=== PATIENT | female | born 1985 | race Caucasian/White ===

== ENCOUNTER 2017-08-25 19:33 | Observation (INO) | payer MEDICAID ==
[~2017-08-25 19:33] MED LIST: TYLETAB34 PO
[2017-08-25 19:34] VITALS: BP 137/89; PULSE 77; RESP 16; TEMP 97.9; O2SAT 100
[2017-08-25] MEDS ORDERED: SODIUM CHLOR 0.9% 1000 ML INJ 1,000 ML IV SCH (19:58)
[2017-08-25] MEDS ORDERED: SODIUM CHLORIDE 0.9% FLUSH 10 ML FLUSH IV FLUSH PRN (20:00)
--- NOTE | 2017-08-25 20:04 | PD ---
HPI Chief Complaint: Abdominal Pain Time Seen by Provider: 19:55 Travel History International Travel<30 days: No Contact w/Intl Traveler<30days: No Traveled to known affect area: No History of Present Illness HPI 31-year-old female here complaining of abdominal pain. The patient reports having lower abdominal/suprapubic pain for 2 weeks, described as sharp/pressure , moderate to severe. She reports history of cervical cancer for which she was receiving cryotherapy and was referred to oncology, however she has not yet been able to make an appointment with them. It is her last menstrual period was 2 weeks ago. She is denying vaginal bleeding or discharge. No urinary symptoms. No history of intra-abdominal surgeries. No vomiting or diarrhea. No fevers or chills. The patient is sexually active with one partner and states she is in a monogamous relationship with her fianc. PFSH Past Medical History Autoimmune Disease: No Blood Disorders: No Anxiety: Yes Depression: No Cancer: No Cardiovascular Problems: No Diminished Hearing: No Endocrine: No Genitourinary: Yes (HPV) Immune Disorder: No Musculoskeletal: No Neurologic: Yes (BELLS PALSY WITH PREGNANCIES) Psychiatric: Yes (ANGER ISSUES) Reproductive: No Respiratory: No Immunizations Current: No ?: Unknown : 3 Para: 2 Miscarriage: 1 : 0 Dilation and Curettage (D&C): Yes Past Surgical History Abdominal Surgery: No Cardiac Surgery: No Ear Surgery: No Eye Surgery: No Genitourinary Surgery: No Gynecologic Surgery: Yes (D&C 2002) Oral Surgery: No Pacemaker: No Thoracic Surgery: No Other Surgery: Yes (D&C 2002) Social History Alcohol Use: Yes (SOCIALLY) Tobacco Use: Yes (08/01) Substance Use: No Allergies-Medications (Allergen,Severity, Reaction): Coded Allergies: butorphanol (Unverified Adverse Reaction, Severe, 08/07/17) ketorolac (Unverified Adverse Reaction, Severe, SOB, 08/07/17) ibuprofen (Unverified Adverse Reaction, Mild, UPSET STOMACH, 08/07/17) Reported Meds & Prescriptions Reported Meds & Active Scripts Active Tylenol-Codeine #3 (Acetaminophen-Codeine) 300-30 mg Tab 1 Tab PO Q4H PRN Reported Flagyl (Metronidazole) Unknown Strength Cap Unknown Dose PO BID Hydrocodone-Acetaminophen 7.5 Mg-325 Mg Tab 1 Tab PO Q4H PRN Gabapentin 800 Mg Tab 800 Mg PO TID Physical Exam Narrative GENERAL: Well-developed, well-nourished, tearful, no apparent distress. SKIN: Focused skin assessment warm/dry. No rash. HEAD: Atraumatic. Normocephalic. EYES: Pupils equal and round. No scleral icterus. No injection or drainage. ENT: Mucous membranes pink and moist. NECK: Trachea midline. No JVD. CARDIOVASCULAR: Regular rate and rhythm. RESPIRATORY: No accessory muscle use. Clear to auscultation. Breath sounds equal bilaterally. GASTROINTESTINAL: Abdomen soft, nondistended. Mild suprapubic tenderness without peritoneal signs. No hernias. Normal bowel sounds. [employer]HW[employer] TE[employer]ER: Exam performed in the presence of female nurse. External genitalia with general warts. Scant amount of whitish vaginal discharge in vaginal vault. Cervix is erythematous. No CMT. No adnexal masses or tenderness. MUSCULOSKELETAL: No obvious deformities. No clubbing. No cyanosis. No edema. NEUROLOGICAL: Awake and alert. No obvious cranial nerve deficits. Motor grossly within normal limits. Normal speech. PSYCHIATRIC: Appropriate mood and affect; insight and judgment normal. Data Data Last Documented VS Vital Signs Date Time Temp Pulse Resp B/P (MAP) Pulse Ox O2 Delivery O2 Flow Rate FiO2 08/25/17 19:34 97.9 77 16 137/89 (105) 100 Room Air Orders Orders Beta Hcg (Quant/Titer) (08/25/17 19:58) Complete Blood Count With Diff (08/25/17 19:58) Comprehensive Metabolic Panel (08/25/17 19:58) Lipase (08/25/17 19:58) Prothrombin Time / Inr (Pt) (08/25/17 19:58) Act Partial Throm Time (Ptt) (08/25/17 19:58) Urinalysis - C+S If Indicated (08/25/17 19:58) Ct Abd/Pel W Iv Contrast(Rout) (08/25/17 19:58) Iv Access Insert/Monitor (08/25/17 19:58) Ecg Monitoring (08/25/17 19:58) Oximetry (08/25/17 19:58) Sodium Chlor 0.9% 1000 Ml Inj (Ns 1000 M (08/25/17 19:58) Sodium Chloride 0.9% Flush (Ns Flush) (08/25/17 20:00) Gc And Chlamydia Pcr (08/25/17 19:58) Wet Prep Profile (08/25/17 19:58) Morphine Inj (Morphine Inj) (08/25/17 20:15) Iohexol 350 Inj (Omnipaque 350 Inj) (08/25/17 21:45) Tylenol (Acetaminophen) (08/25/17 21:48) Drug Screen, Random Urine (08/25/17 21:48) Hydromorphone Pf Inj (Dilaudid Pf Inj) (08/25/17 22:00) Sodium Chlor 0.9% 1000 Ml Inj (Ns 1000 M (08/25/17 22:00) Hydromorphone Pf Inj (Dilaudid Pf Inj) (08/25/17 22:45) Us Pelvis Comp W Dop Transvag (08/25/17 22:08) Potassium Chloride (Kcl) (08/25/17 23:30) Admit Order (Ed Use Only) (08/25/17 23:58) Labs Laboratory Tests Test 08/25/17 20:15 08/25/17 22:00 08/25/17 22:30 White Blood Count 8.9 TH/MM3 Red Blood Count 4.12 MIL/MM3 Hemoglobin 12.9 GM/DL Hematocrit 37.5 % Mean Corpuscular Volume 91.1 FL Mean Corpuscular Hemoglobin 31.4 PG Mean Corpuscular Hemoglobin Concent 34.4 % Red Cell Distribution Width 13.0 % Platelet Count 176 TH/MM3 Mean Platelet Volume 8.2 FL Neutrophils (%) (Auto) 44.0 % Lymphocytes (%) (Auto) 44.6 % Monocytes (%) (Auto) 7.3 % Eosinophils (%) (Auto) 3.7 % Basophils (%) (Auto) 0.4 % Neutrophils # (Auto) 3.9 TH/MM3 Lymphocytes # (Auto) 4.0 TH/MM3 Monocytes # (Auto) 0.7 TH/MM3 Eosinophils # (Auto) 0.3 TH/MM3 Basophils # (Auto) 0.0 TH/MM3 CBC Comment AUTO DIFF Differential Comment AUTO DIFF CONFIRMED Platelet Estimate NORMAL Platelet Morphology Comment NORMAL Prothrombin Time 11.5 SEC Prothromb Time International Ratio 1.1 RATIO Activated Partial Thromboplast Time 26.3 SEC Blood Urea Nitrogen 5 MG/DL Creatinine 0.56 MG/DL Random Glucose 114 MG/DL Total Protein 6.6 GM/DL Albumin 3.0 GM/DL Calcium Level 8.1 MG/DL Alkaline Phosphatase 109 U/L Aspartate Amino Transf (AST/SGOT) 102 U/L Alanine Aminotransferase (ALT/SGPT) 601 U/L Total Bilirubin 0.3 MG/DL Sodium Level 140 MEQ/L Potassium Level 3.1 MEQ/L Chloride Level 106 MEQ/L Carbon Dioxide Level 29.7 MEQ/L Anion Gap 4 MEQ/L Estimat Glomerular Filtration Rate 127 ML/MIN Lipase 191 U/L Human Chorionic Gonadotropin, Quant LESS THAN 1 MIU/ML Acetaminophen Level LESS THAN 2.0 MCG/ML Clue Cells (Wet Prep) NONE SEEN Vaginal Trichomonas (Wet Prep) NONE SEEN Vaginal Yeast (Wet Prep) NONE SEEN Urine Color YELLOW Urine Turbidity CLEAR Urine pH 6.5 Urine Specific [place] GREATER THAN 1.050 Urine Protein TRACE mg/dL Urine Glucose (UA) NEG mg/dL Urine Ketones NEG mg/dL Urine Occult Blood NEG Urine Nitrite NEG Urine Bilirubin NEG Urine Urobilinogen LESS THAN 2.0 MG/DL Urine Leukocyte Esterase NEG Urine WBC LESS THAN 1 /hpf Urine Squamous Epithelial Cells <1 /hpf Microscopic Urinalysis Comment CULT NOT INDICATED MDM Medical Decision Making Medical Screen Exam Complete: Yes Emergency Medical Condition: Yes Differential Diagnosis Appendicitis, UTI, cystitis, PID, TOA, ovarian cysts, BV, Trichomonas, colitis, diverticulitis Narrative Course Vital signs are within normal limits. CBC is unremarkable. CMP is remarkable for potassium 3.1, AST 102, ALT 601. Lipase is 191. Beta hCG is negative. Patient tells me that she abuses IV drugs, however has never been diagnosed with hepatitis. Wet prep: Negative for yeast, negative for clue cells, negative for Trichomonas UA is not suggestive of UTI. CT abdomen pelvis: CONCLUSION: 1. Bilobed left adnexal cyst measuring up to 3.9 x 2.4 cm. Exam degraded by some motion artifact. No other acute abnormalities. Patient continues to have abdominal pain despite receiving 4 mg of IV morphine. She will be given 1 mg of IV Dilaudid and a pelvic ultrasound will be ordered to evaluate for ovarian torsion. Pelvic ultrasound: RIGHT OVARY: Ovary contains no mass or significant cystic lesion. Blood flow is seen at the right ovary. LEFT OVARY: There is a 3.7 x 2.5 x 2.5 cm bilobed cystic area seen at the left adnexa. Blood flow is seen at the left ovary. MISCELLANEOUS: No free fluid. CONCLUSION: 3.7 cm bilobed cystic area in the left adnexa/ovary. This is nonspecific. Typically, cystic lesions with this appearance are followed with an ultrasound in 6-12 weeks. Tylenol level is negative. Patient was made aware of all findings. She is continuing to complain of abdominal pain. Potassium replaced orally. Given intractable abdominal pain with transaminitis, patient be admitted for overnight observation. Case discussed with hospitalist Dr. Wray who will admit the patient to her service. Diagnosis Primary Impression: Intractable abdominal pain Additional Impressions: Transaminitis Left ovarian cyst IV drug abuse Admitting Information Admitting Physician Requests: Rayray Muir MD Aug 25, 2017 20:04
[2017-08-25] MEDS ORDERED: MORPHINE SULFATE 2 MG/ML INJ IV PUSH ONE (20:15)
[2017-08-25] MEDS ORDERED: FLAG375C PO (20:26)
[2017-08-25] MEDS ORDERED: HYDR-3580 PO (20:26)
[2017-08-25] MEDS ORDERED: GABA800T PO (20:26)
[2017-08-25 20:47] LABS: INTERNATIONAL NORMALIZED RATIO 1.1 RATIO; PROTHROMBIN TIME - PATIENT 11.5 SEC (9.8-11.6)
[2017-08-25 20:48] LABS: AUTOMATED NEUTROPHIL # 3.9 TH/MM3 (1.8-7.7); BASOPHIL % 0.4 % (0.0-2.0); EOSINOPHIL # 0.3 TH/MM3 (0-0.4); EOSINOPHIL % 3.7 % (0.0-4.0); HEMATOCRIT 37.5 % (35.0-46.0); HEMOGLOBIN 12.9 GM/DL (11.6-15.3); LYMPH % 44.6 % (9.0-44.0); MEAN CELL VOLUME 91.1 FL (80.0-100.0); MEAN CORPUSCULAR HEMOGLOBIN 31.4 PG (27.0-34.0); MEAN CORPUSCULAR HGB CONC 34.4 % (32.0-36.0); MEAN PLATELET VOLUME 8.2 FL (7.0-11.0); MONO % 7.3 % (0.0-8.0); MONOCYTE # 0.7 TH/MM3 (0-0.9); PLATELET COUNT 176 TH/MM3 (150-450); RED BLOOD COUNT 4.12 MIL/MM3 (4.00-5.30); WHITE BLOOD COUNT 8.9 TH/MM3 (4.0-11.0)
[2017-08-25 21:11] LABS: AST (GOT) 102 U/L (15-37); BICARBONATE 29.7 MEQ/L (21.0-32.0); BLOOD UREA NITROGEN 5 MG/DL (7-18); CALCIUM 8.1 MG/DL (8.5-10.1); CHLORIDE 106 MEQ/L (98-107); CREATININE 0.56 MG/DL (0.50-1.00); GLOMERULAR FILTRATION RATE 127 ML/MIN (>89); GLUCOSE,RANDOM 114 MG/DL (74-106); LIPASE 191 U/L (73-393); SODIUM (NA) 140 MEQ/L (136-145)
[2017-08-25 21:13] LABS: ALT (GPT) 601 U/L (10-53)
[2017-08-25 21:16] LABS: ALKALINE PHOSPHATASE 109 U/L (45-117); TOTAL BILIRUBIN ADULT 0.3 MG/DL (0.2-1.0); TOTAL PROTEIN 6.6 GM/DL (6.4-8.2)
[2017-08-25] MEDS ORDERED: IOHEXOL 350 MG/ML 10 ML VIAL (for RAD DIAG) IVCONTRAST ONE (21:45)
[2017-08-25] MEDS ORDERED: SODIUM CHLOR 0.9% 1000 ML INJ 1,000 ML IV ONE (22:00)
[2017-08-25] MEDS ORDERED: HYDROmorphone HCL PF 2 MG/ML VIAL IV PUSH ONE ×2 (22:00→22:45)
--- NOTE | 2017-08-25 22:04 | RADRPT ---
EXAM DATE/TIME: 08/25/2017 21:39 [facility] COMPARISON: No previous studies available for comparison. INDICATIONS : Abdominal pain. Pubic pressure. IV CONTRAST: 100 cc Omnipaque 350 (iohexol) IV ORAL CONTRAST: No oral contrast ingested. RADIATION DOSE: 7.77 CTDIvol (mGy) MEDICAL HISTORY : Mckoy's palsy. SURGICAL HISTORY : None. ENCOUNTER: Initial ACUITY: 1 day PAIN SCALE: 5/10 LOCATION: abdomen TECHNIQUE: Volumetric scanning of the abdomen and pelvis was performed. Using automated exposure control and ad justment of the mA and/or kV according to patient size, radiation dose was kept as low as reasonably achievable to obtain optimal diagnostic quality images. DICOM format image data is available electro nically for review and comparison. FINDINGS: Lung bases are clear. No acute findings in the liver, spleen, adrenals, kidneys and pancreas. No calc ified gallstones. No free fluid. No bowel obstruction. No acute bony abnormality. There is a bilobed 3.9 x 2.4 cm left adnexal cyst. CONCLUSION: 1. Bilobed left adnexal cyst measuring up to 3.9 x 2.4 cm. Exam degraded by some motion artifact. No other acute abnormalities. Sharad Ferrari MD on August 25, 2017 at 21:57 Board Certified Radiologist. This report was verified electronically.
[2017-08-25 22:59] LABS: BILIRUBIN, URINE NEG (NEG); BLOOD, URINE NEG (NEG); GLUCOSE,URINE NEG (NEG); KETONE, URINE NEG (NEG); NITRITE,URINE NEG (NEG); PH, URINE 6.5 (5.0-8.5); SQUAMOUS EPITHELIAL CELL URINE <1 /hpf (0-5); URINE COLOR YELLOW (YELLW/STRAW); URINE LEUKOCYTE ESTERASE NEG (NEG)
--- NOTE | 2017-08-25 23:23 | RADRPT ---
EXAM DATE/TIME: 08/25/2017 22:10 [facility] COMPARISON: No previous studies available for comparison. INDICATIONS : Pelvic pain. MEDICAL HISTORY : [place] palsy. Abdominal pain. Anxiety. Fibromyalgia. SURGICAL HISTORY : Dilation and curettage. Right wrist repaired. ENCOUNTER: Initial ACUITY: 1 day PAIN SCORE: 10/10 LOCATION: Bilateral pelvis MEASUREMENTS: UTERUS: 8.4 x 5.4 x 3.9 cm ENDOMETRIAL STRIPE: 9 mm RIGHT OVARY: 3.8 x 1.6 x 1.7 cm LEFT OVARY: 4.0 x 2.5 x 2.3 cm FINDINGS: The technologist reports the exam being limited secondary to the patient being uncooperative and movi ng during the examination. UTERUS: The myometrium has homogeneous echotexture without mass.No IUP is seen. Nabothian cysts are seen at t he cervix. RIGHT OVARY: Ovary contains no mass or significant cystic lesion. Blood flow is seen at the right ovary. LEFT OVARY: There is a 3.7 x 2.5 x 2.5 cm bilobed cystic area seen at the left adnexa. Blood flow is seen at the left ovary. MISCELLANEOUS: No free fluid. CONCLUSION: 3.7 cm bilobed cystic area in the left adnexa/ovary. This is nonspecific. Typically, cystic lesions w ith this appearance are followed with an ultrasound in 6-12 weeks. Kirk Bojorquez MD on August 25, 2017 at 23:19 Board Certified Radiologist. This report was verified electronically.
[2017-08-25] MEDS ORDERED: POTASSIUM CHLORIDE 10 MEQ CAP PO ONE (23:30)
[2017-08-26] MEDS ORDERED: BISACODYL 10 MG SUPP RECTAL PRN (00:15)
[2017-08-26] MEDS ORDERED: LACTULOSE SYRUP 20 GM/30 ML CUP PO PRN (00:15)
[2017-08-26] MEDS ORDERED: ONDANSETRON HCL 4 MG/2 ML VIAL IVP PRN (00:15)
[2017-08-26] MEDS ORDERED: SENNOSIDES 8.6 MG TAB PO PRN (00:15)
[2017-08-26] MEDS ORDERED: MAGNESIUM HYDROXIDE SUSP 30 ML CUP PO PRN (00:15)
[2017-08-26] MEDS ORDERED: SODIUM CHLORIDE 0.9% FLUSH 10 ML FLUSH IV FLUSH PRN (00:15)
[2017-08-26] MEDS ORDERED: ACETAMINOPHEN 325 MG TAB PO PRN (00:15)
--- NOTE | 2017-08-26 01:11 | HHI.HP ---
HPI Service [facility] Primary Care Physician No Primary Care Physician Admission Diagnosis intractable abdominal pain, ovarian cyst, hypokalemia Diagnoses: (1) Intractable abdominal pain Diagnosis: Principal (2) Elevated LFTs Diagnosis: Principal (3) IVDU (intravenous drug user) Diagnosis: Principal (4) Genital warts Diagnosis: Principal Travel History International Travel<30 Days: No Contact w/Intl Traveler <30 Da: No Traveled to Known Affected Are: No History of Present Illness This is a 31-year-old female with a PMH of Anxiety, HPV, Genital Warts, Tobacco Abuse and IVDU who presented to the ER w/ complaints of abdominal pain. States pain has been ongoing for approx 2 wks. Located in RLQ/groin. States pain is constant, severe, 10/10, non-radiating. No associated nausea, vomiting or diarrhea. States she's been "self-medicating w/ Dilaudid" IV after taking Lortab w/ no improvement. On arrival, BP 137/89, HR 77, O2 sat 100% on RA. Afebrile. CBC unremarkable. Chemistry essentially unremarkable except for elevated LFTs. AST 102, ALT 601, previously normal on 02/22/11. Believes she was tested for Hepatitis while incarcerated. Transvaginal US 3.7 cm bilobed cystic area and left adnexa/ovary, recommendation for follow-up in 6-[address] Abd/Pelvis w/ similar results. S/p Dilaudid x2 and Morphine IV in ER w/ no improvement. Review of Systems Except as stated in HPI: all other systems reviewed are Neg ROS: 14 point review of systems otherwise negative. Past Family Social History Past Medical History PMH: Anxiety, HPV, Genital Warts, Tobacco Abuse and IVDU Past Surgical History PAST SURGICAL HISTORY: D&C Allergies: Coded Allergies: butorphanol (Unverified Adverse Reaction, Severe, 08/07/17) ketorolac (Unverified Adverse Reaction, Severe, SOB, 08/07/17) ibuprofen (Unverified Adverse Reaction, Mild, UPSET STOMACH, 08/07/17) Family History PAST FAMILY HISTORY: Reviewed. No h/o DM or CAD Social History PAST SOCIAL HISTORY: Occasional alcohol. Smokes 1/2ppd. +IVDU w/ Dilaudid, Lortab. Physical Exam Vital Signs Vital Signs Date Time Temp Pulse Resp B/P (MAP) Pulse Ox O2 Delivery O2 Flow Rate FiO2 08/26/17 00:33 08/25/17 19:34 97.9 77 16 137/89 (105) 100 Room Air Physical Exam PE: GENERAL: Middle-aged white female in no acute distress, anxious/fidgety. HEENT: PERRLA, EOMI. No scleral icterus or conjunctival pallor. No lid lag or facial droop. CARDIOVASCULAR: Regular rate and rhythm. No obvious murmurs to auscultation. No chest tenderness to palpation. RESPIRATORY: No obvious rhonchi or wheezing. Clear to auscultation. Breath sounds equal bilaterally. GASTROINTESTINAL: Abdomen soft, +RLQ/suprapubic tenderness to palpation, nondistended. BS normal. MUSCULOSKELETAL: Extremities without clubbing, cyanosis, or edema. No obvious deformities. NEUROLOGICAL: Awake, alert and oriented x4. No focal neurologic deficits. Moving both upper and lower extremities spontaneously. Laboratory Laboratory Tests Test 08/25/17 20:15 08/25/17 22:00 08/25/17 22:30 White Blood Count 8.9 Red Blood Count 4.12 Hemoglobin 12.9 Hematocrit 37.5 Mean Corpuscular Volume 91.1 Mean Corpuscular Hemoglobin 31.4 Mean Corpuscular Hemoglobin Concent 34.4 Red Cell Distribution Width 13.0 Platelet Count 176 Mean Platelet Volume 8.2 Neutrophils (%) (Auto) 44.0 Lymphocytes (%) (Auto) 44.6 Monocytes (%) (Auto) 7.3 Eosinophils (%) (Auto) 3.7 Basophils (%) (Auto) 0.4 Neutrophils # (Auto) 3.9 Lymphocytes # (Auto) 4.0 Monocytes # (Auto) 0.7 Eosinophils # (Auto) 0.3 Basophils # (Auto) 0.0 CBC Comment AUTO DIFF Differential Comment AUTO DIFF CONFIRMED Platelet Estimate NORMAL Platelet Morphology Comment NORMAL Prothrombin Time 11.5 Prothromb Time International Ratio 1.1 Activated Partial Thromboplast Time 26.3 Blood Urea Nitrogen 5 Creatinine 0.56 Random Glucose 114 Total Protein 6.6 Albumin 3.0 Calcium Level 8.1 Alkaline Phosphatase 109 Aspartate Amino Transf (AST/SGOT) 102 Alanine Aminotransferase (ALT/SGPT) 601 Total Bilirubin 0.3 Sodium Level 140 Potassium Level 3.1 Chloride Level 106 Carbon Dioxide Level 29.7 Anion Gap 4 Estimat Glomerular Filtration Rate 127 Lipase 191 Human Chorionic Gonadotropin, Quant LESS THAN 1 Acetaminophen Level LESS THAN 2.0 Clue Cells (Wet Prep) NONE SEEN Vaginal Trichomonas (Wet Prep) NONE SEEN Vaginal Yeast (Wet Prep) NONE SEEN Urine Color YELLOW Urine Turbidity CLEAR Urine pH 6.5 Urine Specific [place] GREATER THAN 1.050 Urine Protein TRACE Urine Glucose (UA) NEG Urine Ketones NEG Urine Occult Blood NEG Urine Nitrite NEG Urine Bilirubin NEG Urine Urobilinogen LESS THAN 2.0 Urine Leukocyte Esterase NEG Urine WBC LESS THAN 1 Urine Squamous Epithelial Cells <1 Microscopic Urinalysis Comment CULT NOT INDICATED Result Diagram: 08/25/17201408/25/172014 Bobrini VTE Risk Assessment Caprini VTE Risk Assessment: No/Low Risk (score <= 1) Caprini Risk Assessment Model Point Value = 1 Point Value = 2 Point Value = 3 Point Value = 5 Age 41-60 Minor surgery BMI > 25 kg/m2 Swollen legs Varicose veins or History of unexplained or recurrent spontaneous Oral contraceptives or hormone replacement Sepsis (< 1 month) Serious lung disease, including pneumonia (< 1 month) Abnormal pulmonary function Acute myocardial infarction Congestive heart failure (< 1 month) History of inflammatory bowel disease Medical patient at bed rest Age 61-74 Arthroscopic surgery Major open surgery (> 45 min) Laparoscopic surgery (> 45 min) Malignancy Confined to bed (> 72 hours) Immobilizing plaster cast Central venous access Age >= 75 History of VTE Family history of VTE Factor V Leiden Prothrombin [id number] Lupus anticoagulant Anticardiolipin antibodies Elevated serum homocysteine Heparin-induced thrombocytopenia Other congenital or acquired thrombophilia Stroke (< 1 month) Elective arthroplasty Hip, pelvis, or leg fracture Acute spinal cord injury (< 1 month) Prophylaxis Regimen Total Risk Factor Score Risk Level Prophylaxis Regimen 0-1 Low Early ambulation 2 Moderate Order ONE of the following: *Sequential Compression Device (SCD) *Heparin 5000 units SQ BID 3-4 Higher Order ONE of the following medications: *Heparin 5000 units SQ TID *Enoxaparin/Lovenox 40 mg SQ daily (WT < 150 kg, CrCl > 30 mL/min) *Enoxaparin/Lovenox 30 mg SQ daily (WT < 150 kg, CrCl > 10-29 mL/min) *Enoxaparin/Lovenox 30 mg SQ BID (WT < 150 kg, CrCl > 30 mL/min) AND/OR *Sequential Compression Device (SCD) 5 or more Highest Order ONE of the following medications: *Heparin 5000 units SQ TID (Preferred with Epidurals) *Enoxaparin/Lovenox 40 mg SQ daily (WT < 150 kg, CrCl > 30 mL/min) *Enoxaparin/Lovenox 30 mg SQ daily (WT < 150 kg, CrCl > 10-29 mL/min) *Enoxaparin/Lovenox 30 mg SQ BID (WT < 150 kg, CrCl > 30 mL/min) AND *Sequential Compression Device (SCD) Assessment and Plan Problem List: (1) Intractable abdominal pain ICD Code: R10.9 - Unspecified abdominal pain Status: Acute (2) Elevated LFTs ICD Code: R79.89 - Other specified abnormal findings of blood chemistry (3) Genital warts ICD Code: A63.0 - Anogenital (venereal) warts (4) IVDU (intravenous drug user) ICD Code: F19.90 - Other psychoactive substance use, unspecified, uncomplicated Assessment and Plan A/P: 1. Intractable Abd Pain: c/o abdominal pain x2 wks, Transvaginal US w/ 3.7cm left adnexal cyst, CT Abd/Pelvis w/ similar findings, images reviewed by me. No obvious pathology to explain complaints. S/p Dilaudid x2 and Morphine IV in ER w/ minimal improvement. Analgesics/antiemetics as needed. 2. Elevated LFTs: admits to IVDU, denies h/o Hepatitis. LFTs elevated in comparison to previous labs, check Hepatitis Panel. Tylenol level normal. 3. Genital Warts: No treatment while incarcerated x5 yrs, recently started on Cryotherapy w/ no significant improvement, referred to Dr. Gomez, pt pending appt. Instructed her to follow up as scheduled. s/p vaginal exam in ER, Chlam/ GN pending. 4. IVDU: admits to IVDU w/ Dilaudid. Ativan prn if needed. 5. DVT Prophylaxis: SCD/Teds. 6. Social work for d/c planning as needed. 7. Case discussed w/ ER physician at length, labs/records/imaging reviewed by me. Lizzy Wray MD Aug 26, 2017 01:11
[2017-08-26 01:13] VITALS: BP 118/76; PULSE 73; RESP 17; TEMP 97.9; O2SAT 93
[2017-08-26] MEDS: MORPHINE SULFATE 2 MG/ML INJ IV PUSH PRN ×4 (03:20→21:18)
[2017-08-26 04:06] VITALS: BP 126/63; PULSE 118; RESP 18; TEMP 98.5; O2SAT 97
[2017-08-26 08:30] LABS: AUTOMATED NEUTROPHIL # 2.8 TH/MM3 (1.8-7.7); BASOPHIL # 0.1 TH/MM3 (0-0.2); BASOPHIL % 0.8 % (0.0-2.0); EOSINOPHIL # 0.4 TH/MM3 (0-0.4); EOSINOPHIL % 4.9 % (0.0-4.0); HEMATOCRIT 34.9 % (35.0-46.0); HEMOGLOBIN 11.9 GM/DL (11.6-15.3); LYMPH % 48.7 % (9.0-44.0); LYMPHOCYTE # 3.8 TH/MM3 (1.0-4.8); MEAN CELL VOLUME 90.9 FL (80.0-100.0); MEAN CORPUSCULAR HGB CONC 34.1 % (32.0-36.0); MEAN PLATELET VOLUME 7.8 FL (7.0-11.0); MONO % 9.6 % (0.0-8.0); MONOCYTE # 0.8 TH/MM3 (0-0.9); PLATELET COUNT 171 TH/MM3 (150-450); RED BLOOD COUNT 3.84 MIL/MM3 (4.00-5.30); RED CELL DISTRIBUTION WIDTH 13.1 % (11.6-17.2); WHITE BLOOD COUNT 7.8 TH/MM3 (4.0-11.0)
[2017-08-26 08:36] VITALS: BP 100/53; PULSE 88; RESP 20; TEMP 97.9; O2SAT 96
[2017-08-26 08:54] LABS: ALBUMIN 2.4 GM/DL (3.4-5.0); AST (GOT) 67 U/L (15-37); BICARBONATE 27.2 MEQ/L (21.0-32.0); BLOOD UREA NITROGEN 4 MG/DL (7-18); CALCIUM 7.9 MG/DL (8.5-10.1); CHLORIDE 108 MEQ/L (98-107); CREATININE 0.46 MG/DL (0.50-1.00); GLOMERULAR FILTRATION RATE 159 ML/MIN (>89); GLUCOSE,RANDOM 121 MG/DL (74-106); SODIUM (NA) 140 MEQ/L (136-145)
[2017-08-26 08:55] LABS: ALT (GPT) 428 U/L (10-53)
[2017-08-26 08:59] LABS: ALKALINE PHOSPHATASE 93 U/L (45-117); TOTAL BILIRUBIN ADULT 0.3 MG/DL (0.2-1.0); TOTAL PROTEIN 5.5 GM/DL (6.4-8.2)
[2017-08-26] MEDS: SODIUM CHLORIDE 0.9% FLUSH 10 ML FLUSH IV FLUSH SCH ×2 (09:00→21:16)
--- NOTE | 2017-08-26 09:54 | HHI.PR ---
Subjective Remarks Follow-up abdominal pain. Continues to have right lower quadrant pain relieved with current medications. Denies any other symptoms. Discussed with nursing staff Objective Vitals Vital Signs Date Time Temp Pulse Resp B/P (MAP) Pulse Ox O2 Delivery O2 Flow Rate FiO2 08/26/17 08:36 97.9 88 20 100/53 (69) 96 08/26/17 04:06 98.5 118 18 126/63 (84) 97 08/26/17 01:13 97.9 73 17 118/76 (90) 93 08/26/17 00:33 08/25/17 19:34 97.9 77 16 137/89 (105) 100 Room Air I/O 08/25/17 08/25/17 08/25/17 08/26/17 08/26/17 08/26/17 07:00 15:00 23:00 07:00 15:00 23:00 Intake Total 1000 ml Balance 1000 ml Intake IV Total 1000 ml # Voids 1 Result Diagram: 08/26/17 0755 08/26/17 0755 Imaging Last Impressions Abdomen/Pelvis/Transvag US 08/25/172207 Signed Impressions: Service Date/Time: Friday, August 25, 2017 22:10 - CONCLUSION: 3.7 cm bilobed cystic area in the left adnexa/ovary. This is nonspecific. Typically, cystic lesions with this appearance are followed with an ultrasound in 6-12 weeks. Kirk Bojorquez MD Abdomen/Pelvis CT 08/25/171957 Signed Impressions: Service Date/Time: Friday, August 25, 2017 21:39 - CONCLUSION: 1. Bilobed left adnexal cyst measuring up to 3.9 x 2.4 cm. Exam degraded by some motion artifact. No other acute abnormalities. Sharad Ferrari MD Objective Remarks GENERAL: Middle-aged white female in distress due to pain HEENT: PERRLA, EOMI. No scleral icterus or conjunctival pallor. No lid lag or facial droop. CARDIOVASCULAR: Regular rate and rhythm. No obvious murmurs to auscultation. No chest tenderness to palpation. RESPIRATORY: No obvious rhonchi or wheezing. Clear to auscultation. Breath sounds equal bilaterally. GASTROINTESTINAL: Abdomen soft, +RLQ/suprapubic tenderness to palpation, nondistended. BS normal. MUSCULOSKELETAL: Extremities without clubbing, cyanosis, or edema. No obvious deformities. NEUROLOGICAL: Awake, alert and oriented x4. No focal neurologic deficits. Moving both upper and lower extremities spontaneously. Procedures none A/P Problem List: (1) Intractable abdominal pain ICD Code: R10.9 - Unspecified abdominal pain Status: Acute (2) Elevated LFTs ICD Code: R79.89 - Other specified abnormal findings of blood chemistry (3) Genital warts ICD Code: A63.0 - Anogenital (venereal) warts (4) IVDU (intravenous drug user) ICD Code: F19.90 - Other psychoactive substance use, unspecified, uncomplicated Assessment and Plan 1. Intractable Abd Pain, etiology not clear. Transvaginal US w/ 3.7cm left adnexal cyst, CT Abd/Pelvis w/ similar findings, images reviewed by me. No obvious pathology to explain complaints. S/p Dilaudid x2 and Morphine IV in ER w/ minimal improvement. Analgesics/antiemetics as needed counseled regarding narcotics. Consult GI 2. Elevated LFTs: admits to IVDU, denies h/o Hepatitis. LFTs elevated in comparison to previous labs, check Hepatitis Panel. Tylenol level normal. Per GI 3. Genital Warts: No treatment while incarcerated x5 yrs, recently started on Cryotherapy w/ no significant improvement, referred to Dr. Gomez, pt pending appt. Instructed her to follow up as scheduled. s/p vaginal exam in ER, Chlam/ GN negative 4. IVDU: admits to IVDU w/ Dilaudid. Counseled 5. Her glycemia. Obtain A1c DVT Prophylaxis: SCD/Teds. Discharge Planning Not ready for discharge with intractable abdominal pain Seth Bull MD Aug 26, 2017 09:54
[2017-08-26] MEDS: DOCUSATE SODIUM 50 MG/SENNA 8.6 MG TAB PO SCH ×2 (10:06→21:00)
--- NOTE | 2017-08-26 13:33 | PD.CONS ---
HPI History of Present Illness This is a 31 year old female who came into the emergency room for evaluation on 08/26/17 with complaints of abdominal pain. She states pain is present aggressive we getting worse in the right lower quadrant, onset approximately 2 weeks. She does note some nausea but no vomiting, no diarrhea ,no constipation , no dysphagia. When entering room patient had her eyes closed relaxed and comfortable, but immediately when awake and started complaining of right lower quadrant pain again. Currently abdomen is soft, patient does note some mild tenderness in the right lower quadrant, denies any epigastric pain. Patient thinks that she has been possibly tested for hepatitis while incarcerated according to the record but has no records. Patient denies any alcohol abuse, states she smokes a half a pack a day since the age of 14, but is currently adding IV and by mouth drug use or drugs of choice are dull lauded and hydrocodone. Recent usage in the past [address] scan shows left adnexal cyst, otherwise unremarkable. Labs include elevated LFTs currently trending down some 67 ALT , 428 AST, Librium and normal at 0.3, hemoglobin 11.9 with no obvious bleeding. Patient denies any rectal bleeding, no known EGD or colonoscopy in the past. (Amy Lux) PFSH Past Medical History Per the record PMH: Anxiety, HPV, Genital Warts, Tobacco Abuse and IVDU, drug of choice hydrocodone by mouth and Dilaudid IV Past Surgical History PAST SURGICAL HISTORY: D&C (Amy Lux) Coded Allergies: butorphanol (Unverified Adverse Reaction, Severe, 08/07/17) ketorolac (Unverified Adverse Reaction, Severe, SOB, 08/07/17) ibuprofen (Unverified Adverse Reaction, Mild, UPSET STOMACH, 08/07/17) Family History PAST FAMILY HISTORY: Reviewed. No h/o DM or CAD Social History PAST SOCIAL HISTORY: Occasional alcohol. Smokes 1/2ppd. +IVDU w/ Dilaudid, Lortab. (Amy Lux) Review of Systems Gastrointestinal: COMPLAINS OF: Abdominal pain (right lower quadrant), Nausea ( Amy Lux) GI Exam Vitals I&O Vital Signs Date Time Temp Pulse Resp B/P (MAP) Pulse Ox O2 Delivery O2 Flow Rate FiO2 1/27/18 08:36 97.9 88 20 100/53 (69) 96 08/26/17 04:06 98.5 118 18 126/63 (84) 97 08/26/17 01:13 97.9 73 17 118/76 (90) 93 08/26/17 00:33 08/25/17 19:34 97.9 77 16 137/89 (105) 100 Room Air I/O 08/25/17 08/25/17 08/25/17 08/26/17 08/26/17 08/26/17 07:00 15:00 23:00 07:00 15:00 23:00 Intake Total 1000 ml Balance 1000 ml Intake IV Total 1000 ml # Voids 1 Imaging Last Impressions Abdomen/Pelvis/Transvag US 08/25/[id number] Signed Impressions: Service Date/Time: Friday, August 25, 2017 22:10 - CONCLUSION: 3.7 cm bilobed cystic area in the left adnexa/ovary. This is nonspecific. Typically, cystic lesions with this appearance are followed with an ultrasound in 6-12 weeks. Kirk Bojorquez MD Abdomen/Pelvis CT [id number]/[id number] Signed Impressions: Service Date/Time: Friday, August 25, 2017 21:39 - CONCLUSION: 1. Bilobed left adnexal cyst measuring up to 3.9 x 2.4 cm. Exam degraded by some motion artifact. No other acute abnormalities. Sharad Ferrari MD Laboratory Test 08/25/17 20:15 08/25/17 22:00 08/25/17 22:30 08/26/17 07:55 White Blood Count 8.9 TH/MM3 7.8 TH/MM3 Red Blood Count 4.12 MIL/MM3 3.84 MIL/MM3 Hemoglobin 12.9 GM/DL 11.9 GM/DL Hematocrit 37.5 % 34.9 % Mean Corpuscular Volume 91.1 FL 90.9 FL Mean Corpuscular Hemoglobin 31.4 PG 31.0 PG Mean Corpuscular Hemoglobin Concent 34.4 % 34.1 % Red Cell Distribution Width 13.0 % 13.1 % Platelet Count 176 TH/MM3 171 TH/MM3 Mean Platelet Volume 8.2 FL 7.8 FL Neutrophils (%) (Auto) 44.0 % 36.0 % Lymphocytes (%) (Auto) 44.6 % 48.7 % Monocytes (%) (Auto) 7.3 % 9.6 % Eosinophils (%) (Auto) 3.7 % 4.9 % Basophils (%) (Auto) 0.4 % 0.8 % Neutrophils # (Auto) 3.9 TH/MM3 2.8 TH/MM3 Lymphocytes # (Auto) 4.0 TH/MM3 3.8 TH/MM3 Monocytes # (Auto) 0.7 TH/MM3 0.8 TH/MM3 Eosinophils # (Auto) 0.3 TH/MM3 0.4 TH/MM3 Basophils # (Auto) 0.0 TH/MM3 0.1 TH/MM3 CBC Comment AUTO DIFF AUTO DIFF Differential Comment AUTO DIFF CONFIRMED AUTO DIFF CONFIRMED Platelet Estimate NORMAL Platelet Morphology Comment NORMAL Prothrombin Time 11.5 SEC Prothromb Time International Ratio 1.1 RATIO Activated Partial Thromboplast Time 26.3 SEC Blood Urea Nitrogen 5 MG/DL 4 MG/DL Creatinine 0.56 MG/DL 0.46 MG/DL Random Glucose 114 MG/DL 121 MG/DL Total Protein 6.6 GM/DL 5.5 GM/DL Albumin 3.0 GM/DL 2.4 GM/DL Calcium Level 8.1 MG/DL 7.9 MG/DL Alkaline Phosphatase 109 U/L 93 U/L Aspartate Amino Transf (AST/SGOT) 102 U/L 67 U/L Alanine Aminotransferase (ALT/SGPT) 601 U/L 428 U/L Total Bilirubin 0.3 MG/DL 0.3 MG/DL Sodium Level 140 MEQ/L 140 MEQ/L Potassium Level 3.1 MEQ/L 3.9 MEQ/L Chloride Level 106 MEQ/L 108 MEQ/L Carbon Dioxide Level 29.7 MEQ/L 27.2 MEQ/L Anion Gap 4 MEQ/L 5 MEQ/L Estimat Glomerular Filtration Rate 127 ML/MIN 159 ML/MIN Lipase 191 U/L Human Chorionic Gonadotropin, Quant LESS THAN 1 MIU/ML Acetaminophen Level LESS THAN 2.0 MCG/ML Clue Cells (Wet Prep) NONE SEEN Vaginal Trichomonas (Wet Prep) NONE SEEN Vaginal Yeast (Wet Prep) NONE SEEN Chlamydia trachomatis DNA (PCR) NOT DETECTED Neisseria gonorrhoeae DNA (PCR) NOT DETECTED Urine Color YELLOW Urine Turbidity CLEAR Urine pH 6.5 Urine Specific [place] GREATER THAN 1.050 Urine Protein TRACE mg/dL Urine Glucose (UA) NEG mg/dL Urine Ketones NEG mg/dL Urine Occult Blood NEG Urine Nitrite NEG Urine Bilirubin NEG Urine Urobilinogen LESS THAN 2.0 MG/DL Urine Leukocyte Esterase NEG Urine WBC LESS THAN 1 /hpf Urine Squamous Epithelial Cells <1 /hpf Microscopic Urinalysis Comment CULT NOT INDICATED Urine Opiates Screen POS Urine Barbiturates Screen NEG Urine Amphetamines Screen POS Urine Benzodiazepines Screen NEG Urine Cocaine Screen NEG Urine Cannabinoids Screen NEG Physical Examination HEENT: Pupils round and reactive to light; normocephalic; atraumatic; no jaundice. NECK: Neck is supple CHEST: Chest is only diminished but no rhonchi CARDIAC: Regular rate and rhythm with no murmur gallop or rubs. ABDOMEN: Round, Soft, nondistended, mild right lower quadrant tenderness to light palpation; bowel sounds are present in all four quadrants. EXTREMITIES: No lower extremity edema. SKIN: Normal; no rash; no jaundice. DIRECTOR RELIGIOUS EDUCATION: Awakens to verbal stimuli ,oriented times three., Mild anxiety noted (Amy Lux) Assessment and Plan Assessment: (1) Elevated LFTs ICD Codes: R79.89 - Other specified abnormal findings of blood chemistry (2) Intractable abdominal pain ICD Codes: R10.9 - Unspecified abdominal pain Status: Acute (3) IV drug abuse ICD Codes: F19.10 - Other psychoactive substance abuse, uncomplicated Status: Acute Plan Nausea for the past 2 weeks but no vomiting could be secondary to her right lower quadrant pain and her IV drug use symptoms. Transaminitis Elevated LFTs trending down mildly currently 67/428, negative bilirubin, could be secondary to her drug use, hepatitis nonalcoholic, liver lab workup in progress, liver ultrasound, hepatitis versus fatty liver? Right lower quadrant pain, rule out inflammation versus infection , appendicitis doubt, WBC count normal range 7.8 CT scan on 08/26/17 shows left adnexal cyst, no other acute abnormality seen Plan Low-dose PPI for her nausea, Protonix 20 mg daily Pain management per attending Consider EGD / colonoscopy, TBA Monitor labs/ special attention to hemoglobin any acute bleeding Liver workup labs, hepatitis profile, alpha 1 antitrypsin, mitochondrial total auto labs, smooth muscle total auto labs, ceruloplasmin, AMA, IgG IgA Liver ultrasound Anemia labs, iron, ferritin, TIBC Supportive care This patient was seen by myself and Dr. Melendez, was done on his behalf (Amy Lux) Plan Patient was seen and examined, agree with above-noted, patient is not very interested in any procedure, we will see how she is doing and how her liver function test develop in the next few days, full workup for hepatitis nonalcoholic is in progress (Yovani Melendez MD) Amy Lux Aug 26, 2017 13:33 Yovani Melendez MD Aug 26, 2017 20:18
[2017-08-26] MEDS: PANTOPRAZOLE SOD 20 MG DELAYED RELEASE TAB PO SCH (13:57)
[2017-08-26 17:17] LABS: FERRITIN 169 NG/ML (8-252)
[2017-08-26 17:20] LABS: % SATURATION IRON PROFILE 47.3 % (20-50); IRON (FE) 114 MCG/DL (50-170); TOTAL IRON BINDING CAPACITY 241 MCG/DL (250-450)
--- NOTE | 2017-08-26 18:52 | RADRPT ---
EXAM DATE/TIME: 08/26/2017 18:11 [facility] COMPARISON: No previous studies available for comparison. INDICATIONS : Increased lab values. MEDICAL HISTORY : Abdominal pain. Anxiety. Cervical cancer. Fibromyalgia. Substance use. Alcohol use. SURGICAL HISTORY : Dilation and curettage. Right wrist repaired. ENCOUNTER: Initial ACUITY: 3 days PAIN SCORE: 5/10 LOCATION: Bilateral upper quadrant MEASUREMENTS: LIVER: 18.7 cm length COMMON DUCT: 4 mm RIGHT KIDNEY: 12.2 x 4.6 x 4.4 cm SPLEEN: 10.6 cm length FINDINGS: LIVER: Normal echotexture without focal lesion or ductal dilatation. COMMON DUCT: No intraluminal mass or stone visualized. GALLBLADDER: Contracted gallbladder. No sludge or stones. No pericholecystic fluid. PANCREAS: The visualized portions are within normal limits. RIGHT KIDNEY: No hydronephrosis, stone or mass. SPLEEN: No focal lesion. CONCLUSION: Upper limits of normal size liver. Otherwise normal right upper quadrant ultrasound. Kirk Gillespie MD on August 26, 2017 at 18:48 Board Certified Radiologist. This report was verified electronically.
[2017-08-26 20:32] VITALS: BP 118/56; PULSE 68; RESP 18; TEMP 98.5; O2SAT 98
[2017-08-26] MEDS: DIAZEPAM 10 MG TAB PO PRN (21:19)
[2017-08-27] VITALS: BP 113/62; PULSE 66; RESP 20; TEMP 98.3; O2SAT 99
[2017-08-27] MEDS: MORPHINE SULFATE 2 MG/ML INJ IV PUSH PRN ×2 (00:43→07:29)
[2017-08-27 04:00] VITALS: BP 97/56; PULSE 58; RESP 19; TEMP 98; O2SAT 95
[2017-08-27 08:27] VITALS: BP 100/40; PULSE 70; RESP 18; TEMP 97.9; O2SAT 96
[2017-08-27] MEDS: SODIUM CHLORIDE 0.9% FLUSH 10 ML FLUSH IV FLUSH SCH ×2 (09:00→21:45)
[2017-08-27 09:08] LABS: ALBUMIN 2.7 GM/DL (3.4-5.0); ALT (GPT) 326 U/L (10-53); AST (GOT) 43 U/L (15-37); BICARBONATE 29.6 MEQ/L (21.0-32.0); BLOOD UREA NITROGEN 7 MG/DL (7-18); CALCIUM 8.1 MG/DL (8.5-10.1); CHLORIDE 105 MEQ/L (98-107); CREATININE 0.39 MG/DL (0.50-1.00); GLOMERULAR FILTRATION RATE 193 ML/MIN (>89); GLUCOSE,RANDOM 97 MG/DL (74-106); MAGNESIUM 2.1 MG/DL (1.5-2.5); SODIUM (NA) 140 MEQ/L (136-145)
[2017-08-27 09:11] LABS: ALKALINE PHOSPHATASE 91 U/L (45-117); TOTAL BILIRUBIN ADULT 0.2 MG/DL (0.2-1.0); TOTAL PROTEIN 5.8 GM/DL (6.4-8.2)
[2017-08-27] MEDS: DOCUSATE SODIUM 50 MG/SENNA 8.6 MG TAB PO SCH ×2 (10:25→21:00)
[2017-08-27] MEDS: PANTOPRAZOLE SOD 20 MG DELAYED RELEASE TAB PO SCH (10:25)
[2017-08-27 12:23] VITALS: BP 110/40; PULSE 62; RESP 20; TEMP 97.5; O2SAT 98
--- NOTE | 2017-08-27 12:32 | HHI.GIFU ---
Subjective Remarks Resting in the bed watching TV States she is eating okay and drinking Gatorade Notes abdominal pain starts in the right upper quadrant down to the umbilicus area Pain is fairly constant and dull Bowel movement normal today without any bleeding (Amy Lux) Objective Vitals I&O Vital Signs Date Time Temp Pulse Resp B/P (MAP) Pulse Ox O2 Delivery O2 Flow Rate FiO2 08/27/17 12:23 97.5 62 20 110/40 (63) 98 08/27/17 08:27 97.9 70 18 100/40 (60) 96 08/27/17 07:34 20 08/27/17 04:00 98.0 58 19 97/56 (70) 95 08/27/17 00:00 98.3 66 20 113/62 (79) 99 08/26/17 20:32 98.5 68 18 118/56 (76) 98 08/26/17 17:49 20 I/O 08/26/17 08/26/17 08/26/17 08/27/17 08/27/17 08/27/17 07:00 15:00 23:00 07:00 15:00 23:00 Intake Total 800 ml Balance 800 ml Intake Oral 800 ml # Voids 1 4 # Bowel Movements 0 Laboratory Laboratory Tests Test 08/27/17 07:50 08/27/17 07:55 Blood Urea Nitrogen 7 Creatinine 0.39 Random Glucose 97 Total Protein 5.8 Albumin 2.7 Calcium Level 8.1 Magnesium Level 2.1 Alkaline Phosphatase 91 Aspartate Amino Transf (AST/SGOT) 43 Alanine Aminotransferase (ALT/SGPT) 326 Total Bilirubin 0.2 Sodium Level 140 Potassium Level 3.8 Chloride Level 105 Carbon Dioxide Level 29.6 Anion Gap 5 Estimat Glomerular Filtration Rate 193 Imaging Last Impressions Liver Ultrasound 08/26/17 0000 Signed Impressions: Service Date/Time: Saturday, August 26, 2017 18:11 - CONCLUSION: Upper limits of normal size liver. Otherwise normal right upper quadrant ultrasound. Kirk Gillespie MD Abdomen/Pelvis/Transvag US 08/25/178 Signed Impressions: Service Date/Time: Friday, August 25, 2017 22:10 - CONCLUSION: 3.7 cm bilobed cystic area in the left adnexa/ovary. This is nonspecific. Typically, cystic lesions with this appearance are followed with an ultrasound in 6-12 weeks. Kirk Bojorquez MD Abdomen/Pelvis CT 08/25/171957 Signed Impressions: Service Date/Time: Friday, August 25, 2017 21:39 - CONCLUSION: 1. Bilobed left adnexal cyst measuring up to 3.9 x 2.4 cm. Exam degraded by some motion artifact. No other acute abnormalities. Sharad Ferrari MD Physical Exam HEENT: Pupils round and reactive to light; normocephalic; atraumatic; no jaundice. Oral cavity clear, speech clear NECK: Neck is supple CHEST: Chest is without any rhonchi or wheezing CARDIAC: Regular rate and rhythm ABDOMEN: Soft, nondistended, tenderness right upper quadrant laterally to umbilicus area; bowel sounds are present in all four quadrants. EXTREMITIES: No clubbing, cyanosis, or edema. Mild obesity SKIN: Normal; no rash; no jaundice. POLICE LIEUTENANT PRECINCT: Awake answers questions appropriately (Amy Lux) Assessment and Plan Assessment: (1) Elevated LFTs ICD Codes: R79.89 - Other specified abnormal findings of blood chemistry (2) Intractable abdominal pain ICD Codes: R10.9 - Unspecified abdominal pain Status: Acute (3) IV drug abuse ICD Codes: F19.10 - Other psychoactive substance abuse, uncomplicated Status: Acute Plan (1) Elevated LFTs ICD Codes: R79.89 - Other specified abnormal findings of blood chemistry (2) Intractable abdominal pain ICD Codes: R10.9 - Unspecified abdominal pain Status: Acute (3) IV drug abuse ICD Codes: F19.10 - Other psychoactive substance abuse, uncomplicated Status: Acute History Nausea for the past 2 weeks but no vomiting could be secondary to her right lower quadrant pain and her IV drug use symptoms. Transaminitis Elevated LFTs trending down mildly currently 43/326, trending down. negative bilirubin, could be secondary to her drug use, hepatitis nonalcoholic, liver lab workup in progress Right lower quadrant pain continues dull in nature and fairly persistent, right upper quadrant normal on ultrasound, pain could be possibly muscle skeletal/ inflammatory. CT scan on 08/26/17 shows left adnexal cyst, no other acute abnormality seen Anemia stable at 11.9 Liver ultrasound showed upper normal limits to size Plan Low-dose PPI for her nausea, Protonix 20 mg daily Pain management per attending No plan for procedures right now, patient is requesting to hold off for now Monitor labs/ special attention to hemoglobin any acute bleeding Liver workup labs continue for non-alcoholic hepatitis, most of her labs are still pending. May need to follow up on an outpatient basis. Monitor hemoglobin Supportive care This patient was seen by myself and Dr. Melendez, was done on his behalf (Amy Lux) Plan Patient was seen and examined, agree with above-noted, patient does not want procedure at this time, consider TRANSFORMATION LEAD evaluation (Yovani Melendez MD) Amy Lux Aug 27, 2017 12:32 Yovani Melendez MD Aug 27, 2017 14:01
--- NOTE | 2017-08-27 12:45 | HHI.PR ---
Subjective Remarks Follow-up abdominal pain. Continues to have right sided abdominal pain. Patient tolerating meals and ambulating without difficulty. No diarrhea, constipation and UTI symptoms. Discussed with nursing staff Objective Vitals Vital Signs Date Time Temp Pulse Resp B/P (MAP) Pulse Ox O2 Delivery O2 Flow Rate FiO2 08/27/17 12:23 97.5 62 20 110/40 (63) 98 08/27/17 08:27 97.9 70 18 100/40 (60) 96 08/27/17 07:34 20 08/27/17 04:00 98.0 58 19 97/56 (70) 95 08/27/17 00:00 98.3 66 20 113/62 (79) 99 08/26/17 20:32 98.5 68 18 118/56 (76) 98 08/26/17 17:49 20 I/O 08/26/17 08/26/17 08/26/17 08/27/17 08/27/17 08/27/17 07:00 15:00 23:00 07:00 15:00 23:00 Intake Total 800 ml Balance 800 ml Intake Oral 800 ml # Voids 1 4 # Bowel Movements 0 Result Diagram: 08/26/17 0755 08/27/17 0755 Imaging Last Impressions Liver Ultrasound 08/26/17 0000 Signed Impressions: Service Date/Time: Saturday, August 26, 2017 18:11 - CONCLUSION: Upper limits of normal size liver. Otherwise normal right upper quadrant ultrasound. Kirk Gillespie MD Abdomen/Pelvis/Transvag US 08/25/172207 Signed Impressions: Service Date/Time: Friday, August 25, 2017 22:10 - CONCLUSION: 3.7 cm bilobed cystic area in the left adnexa/ovary. This is nonspecific. Typically, cystic lesions with this appearance are followed with an ultrasound in 6-12 weeks. Kirk Bojorquez MD Abdomen/Pelvis CT 08/25/171957 Signed Impressions: Service Date/Time: Friday, August 25, 2017 21:39 - CONCLUSION: 1. Bilobed left adnexal cyst measuring up to 3.9 x 2.4 cm. Exam degraded by some motion artifact. No other acute abnormalities. Sharad Ferrari MD Objective Remarks GENERAL: Middle-aged white female in no distress HEENT: PERRLA, EOMI. No scleral icterus or conjunctival pallor. No lid lag or facial droop. CARDIOVASCULAR: Regular rate and rhythm. No obvious murmurs to auscultation. No chest tenderness to palpation. RESPIRATORY: No obvious rhonchi or wheezing. Clear to auscultation. Breath sounds equal bilaterally. GASTROINTESTINAL: Abdomen soft, improving right upper and right lower quadrant tenderness to palpation, nondistended. BS normal. MUSCULOSKELETAL: Extremities without clubbing, cyanosis, or edema. No obvious deformities. NEUROLOGICAL: Awake, alert and oriented x4. No focal neurologic deficits. Moving both upper and lower extremities spontaneously. Procedures none A/P Problem List: (1) Intractable abdominal pain ICD Code: R10.9 - Unspecified abdominal pain Status: Acute (2) Elevated LFTs ICD Code: R79.89 - Other specified abnormal findings of blood chemistry (3) Genital warts ICD Code: A63.0 - Anogenital (venereal) warts (4) IVDU (intravenous drug user) ICD Code: F19.90 - Other psychoactive substance use, unspecified, uncomplicated Assessment and Plan 1. Intractable Abd Pain, etiology not clear DDx: Hepatitis vs [place] vs Drug seeking . Transvaginal US w/ 3.7cm left adnexal cyst, CT Abd/Pelvis w/ similar findings, images reviewed by me. No obvious pathology to explain complaints. S/p Dilaudid x2 and Morphine IV in ER w/ minimal improvement. Analgesics/antiemetics as needed counseled regarding narcotics. We'll consult GRADER TENDER 2. Elevated LFTs: admits to IVDU, denies h/o Hepatitis. LFTs elevated in comparison to previous labs, check Hepatitis Panel. Tylenol level normal. Improving Per GI 3. Genital Warts: No treatment while incarcerated x5 yrs, recently started on Cryotherapy w/ no significant improvement, referred to Dr. Gomez, pt pending appt. Instructed her to follow up as scheduled. s/p vaginal exam in ER, Chlam/ GN negative 4. IVDU: admits to IVDU w/ Dilaudid. Counseled 5. Hyperglycemia. Improved DVT Prophylaxis: SCD/Teds. Discharge Planning Discharge when cleared by GI and GRADER TENDER Seth Bull MD Aug 27, 2017 12:45
--- NOTE | 2017-08-27 19:51 | PD.CONS ---
HPI Chief Complaint Complains of 2 weeks of right-sided pelvic pain that is sharp in nature it had gotten worse so she came to the hospital Date Seen: Aug 27, 2017 Time Seen: 18:50 Travel History International Travel<30 Days: No Contact w/Intl Traveler<30Days: No Known Affected Area: No History of Present Illness HPI She is 31-year-old white female A7 L1 who presents for 2 weeks of right pelvic pain. No exacerbating factors to no nausea vomiting diarrhea, no fever. Moving around does not make the pain worse, but that intercourse increases her pain. Her test is negative in emergency room Para: 2 : 9 Last Menstrual Period: Aug 13, 2017 Miscarriage: 7 History Obstetric History Obstetric History Patient is a 9 para 2 delivered one normal term delivery and the other was a stillbirth at 6 months she has 1 living child and 7 miscarriages Social History Narrative Social History Patient has a history of IV drug use and medicated herself Demerol and Dilaudid frequently has track avila on her arms Alcohol Use: Yes Tobacco Use: Yes Substance Abuse: Yes Allergies-Medications (Allergen,Severity, Reaction): Coded Allergies: butorphanol (Unverified Adverse Reaction, Severe, 08/07/17) ketorolac (Unverified Adverse Reaction, Severe, SOB, 08/07/17) ibuprofen (Unverified Adverse Reaction, Mild, UPSET STOMACH, 08/07/17) Home Meds Active Scripts Acetaminophen-Codeine (Tylenol-Codeine #3) 300-30 mg Tab, 1 TAB PO Q4H Y for PAIN, #20 TAB 0 Refills Prov:Jet Canchola MD R2 08/07/17 Reported Medications Metronidazole (Flagyl) Unknown Strength Cap, PO BID for Infection, CAP 0 Refills 08/25/17 Hydrocodone-Acetaminophen (Hydrocodone-Acetaminophen) 7.5 Mg-325 Mg Tab, 1 TAB PO Q4H Y for PAIN, TAB 0 Refills 08/25/17 Gabapentin (Gabapentin) 800 Mg Tab, 800 MG PO TID, #90 TAB 0 Refills 08/25/17 Review of Systems General / Constitutional: No: Fever, Weight Gain, Chills, Other Eyes: No: Diploplia, Blurred Vision, Visual changes, Pain, Photophobia HENT: No: Headaches, Vertigo, Lightheadedness Cardiovascular: No: Irregular Rhythm, Chest Pain or Discomfort, Palpitations, Tachycardia, Syncope, Varicosities, Edema, Cyanosis Respiratory: No: Cough, Short of Breath, Other Gastrointestinal: Abdominal Pain, No: Nausea, Vomiting, Diarrhea Genitourinary: No: Decreased Urinary Output, Oliguria Musculoskeletal: No: Limited ROM, Weakness, Cramping, Edema, Pain Skin: No Rash, No Itching, No Dryness, No Lumps, No Change in Pigmentation, No Change in Nails, No Alopecia, No Lesions Neurologic: No: Weakness, Dizziness, Syncope, Focal Abnormalities, Coordination Problem, Headache, Slurred Speech, Seizures Psychiatric: No: Depression, Suicidal Ideations, Homicidal Ideation Endocrine: No: Heat Intolerance, Cold Intolerance, Polydipsia, Polyuria, Other Physical Exam Vital Signs Date Time Temp Pulse Resp B/P (MAP) Pulse Ox O2 Delivery O2 Flow Rate FiO2 08/27/17 18:54 20 08/27/17 12:23 97.5 62 20 110/40 (63) 98 08/27/17 08:27 97.9 70 18 100/40 (60) 96 08/27/17 07:34 20 08/27/17 04:00 98.0 58 19 97/56 (70) 95 08/27/17 00:00 98.3 66 20 113/62 (79) 99 08/26/17 20:32 98.5 68 18 118/56 (76) 98 Narrative GENERAL: Well-nourished, well-developed patient. SKIN: Warm and dry. HEAD: Normocephalic and atraumatic. EYES: No scleral icterus. No injection or drainage. ENT: No nasal drainage noted. Mucous membranes pink. Airway patent. NECK: Supple, trachea midline. No JVD. CARDIOVASCULAR: Regular rate and rhythm without murmurs, gallops, or rubs. RESPIRATORY: Breath sounds equal bilaterally. No accessory muscle use. BREASTS: Bilateral exam showed no masses , no retractions, no nipple discharge. ABDOMEN/GI: Abdomen soft, -tender in RLQ minimally tender in RUQ , bowel sounds present, no rebound, no guarding GENITOURINARY: External Genitalia: intact , has moderate amount of perineal condyloma nl vagina , cx posterior + CMT , uterus AF small , no adnexal masses EXTREMITIES: No cyanosis or edema. BACK: Nontender without obvious deformity. No CVA tenderness. NEUROLOGICAL: Awake and alert. Motor and sensory grossly within normal limits. Five out of 5 muscle strength in all muscle groups. Normal speech. Data Data Orders Orders Magnesium (Mg) (08/27/17 07:41) Comprehensive Metabolic Panel (08/27/17 07:41) (Hub Use Only)Inp Phy Cons/Ref (08/27/17 ) Consult Gynecology (08/27/17 ) (Hub Use Only)Inp Phy Cons/Ref (08/27/17 ) Physician Name Changes (08/27/17 ) Labs Laboratory Tests Test 08/27/17 07:50 08/27/17 07:55 Blood Urea Nitrogen 7 Creatinine 0.39 Random Glucose 97 Total Protein 5.8 Albumin 2.7 Calcium Level 8.1 Magnesium Level 2.1 Alkaline Phosphatase 91 Aspartate Amino Transf (AST/SGOT) 43 Alanine Aminotransferase (ALT/SGPT) 326 Total Bilirubin 0.2 Sodium Level 140 Potassium Level 3.8 Chloride Level 105 Carbon Dioxide Level 29.6 Anion Gap 5 Estimat Glomerular Filtration Rate 193 MDM Interpretation(s) 31 -year-old white female with a 2 weeks of right pelvic pain no other symptoms to speak of. Ultrasound done here showed essentially normal exam normal uterus the left ovary was 4 cm and is cystic but her age that's essentially normal finding and she hurts on the other side the right not the left ,. Her labs all normal urinalysis negative, ultrasound and CT scan negative Plan Plan for her from a SCREEN ROOM OPERATOR standpoint would be to treat is mild PID with abdominal pain and cervical motion pain one could empirically treat with either IV or IM or by mouth antibiotics , if the patient's to be admitted and kept in the hospital would treat with IV Rocephin and by mouth doxycycline, and then as an outpatient doxycycline for 2 weeks. If she is not going to be admitted or held in the hospital IM shot of Rocephin with oral doxycycline after. An outpatient follow-up with a SCREEN ROOM OPERATOR if not improved in the next 2-4 weeks if the patient's workup move toward a GI source of then obviously would go that route with the their treatment plans Admitting diagnosis: intractable abdominal pain, ovarian cyst, hypokalemia Diagnosis: PID , pelvic pain Giovanny Church II, MD Aug 27, 2017 19:51
[2017-08-27 20:17] VITALS: BP 120/68; PULSE 88; RESP 18; TEMP 98.4; O2SAT 96
[2017-08-27] MEDS: DIAZEPAM 10 MG TAB PO PRN (21:46)
[2017-08-27 23:34] VITALS: BP 129/63; PULSE 68; RESP 18; TEMP 98; O2SAT 97
[2017-08-28 08:00] VITALS: BP 103/59; PULSE 69; RESP 20; TEMP 97.2; O2SAT 97
[2017-08-28] MEDS: DOCUSATE SODIUM 50 MG/SENNA 8.6 MG TAB PO SCH (09:00)
[2017-08-28] MEDS: SODIUM CHLORIDE 0.9% FLUSH 10 ML FLUSH IV FLUSH SCH (09:00)
[2017-08-28] MEDS: PANTOPRAZOLE SOD 20 MG DELAYED RELEASE TAB PO SCH (09:53)
--- NOTE | 2017-08-28 10:42 | HHI.GIFU ---
Subjective Remarks Pt resting in bed, friend at bedside. right quadrant pain unchanged. REfusing endoscopy. Ate breakfast, ambulating hallways. (Racheal Yoder) Objective Vitals I&O Vital Signs Date Time Temp Pulse Resp B/P (MAP) Pulse Ox O2 Delivery O2 Flow Rate FiO2 08/28/17 08:00 97.2 69 20 103/59 (74) 97 08/27/17 23:34 98.0 68 18 129/63 (85) 97 08/27/17 20:17 98.4 88 18 120/68 (85) 96 08/27/17 20:00 20 08/27/17 12:23 97.5 62 20 110/40 (63) 98 I/O 08/27/17 08/27/17 08/27/17 08/28/17 08/28/17 08/28/17 07:00 15:00 23:00 07:00 15:00 23:00 Intake Total 800 ml Balance 800 ml Intake Oral 800 ml # Voids 6 # Bowel Movements 0 Laboratory Laboratory Tests Test 08/25/17 20:15 08/25/17 22:00 08/25/17 22:30 08/26/17 07:55 Platelet Estimate NORMAL Platelet Morphology Comment NORMAL Prothrombin Time 11.5 SEC Prothromb Time International Ratio 1.1 RATIO Activated Partial Thromboplast Time 26.3 SEC Lipase 191 U/L Human Chorionic Gonadotropin, Quant LESS THAN 1 MIU/ML Acetaminophen Level LESS THAN 2.0 MCG/ML Clue Cells (Wet Prep) NONE SEEN Vaginal Trichomonas (Wet Prep) NONE SEEN Vaginal Yeast (Wet Prep) NONE SEEN Chlamydia trachomatis DNA (PCR) NOT DETECTED Neisseria gonorrhoeae DNA (PCR) NOT DETECTED Urine Color YELLOW Urine Turbidity CLEAR Urine pH 6.5 Urine Specific [place] GREATER THAN 1.050 Urine Protein TRACE mg/dL Urine Glucose (UA) NEG mg/dL Urine Ketones NEG mg/dL Urine Occult Blood NEG Urine Nitrite NEG Urine Bilirubin NEG Urine Urobilinogen LESS THAN 2.0 MG/DL Urine Leukocyte Esterase NEG Urine WBC LESS THAN 1 /hpf Urine Squamous Epithelial Cells <1 /hpf Microscopic Urinalysis Comment CULT NOT INDICATED Urine Opiates Screen POS Urine Barbiturates Screen NEG Urine Amphetamines Screen POS Urine Benzodiazepines Screen NEG Urine Cocaine Screen NEG Urine Cannabinoids Screen NEG White Blood Count 7.8 TH/MM3 Red Blood Count 3.84 MIL/MM3 Hemoglobin 11.9 GM/DL Hematocrit 34.9 % Mean Corpuscular Volume 90.9 FL Mean Corpuscular Hemoglobin 31.0 PG Mean Corpuscular Hemoglobin Concent 34.1 % Red Cell Distribution Width 13.1 % Platelet Count 171 TH/MM3 Mean Platelet Volume 7.8 FL Neutrophils (%) (Auto) 36.0 % Lymphocytes (%) (Auto) 48.7 % Monocytes (%) (Auto) 9.6 % Eosinophils (%) (Auto) 4.9 % Basophils (%) (Auto) 0.8 % Neutrophils # (Auto) 2.8 TH/MM3 Lymphocytes # (Auto) 3.8 TH/MM3 Monocytes # (Auto) 0.8 TH/MM3 Eosinophils # (Auto) 0.4 TH/MM3 Basophils # (Auto) 0.1 TH/MM3 CBC Comment AUTO DIFF Differential Comment AUTO DIFF CONFIRMED Iron Level 114 MCG/DL Total Iron Binding Capacity 241 MCG/DL Percent Iron Saturation 47.3 % Ferritin 169 NG/ML Tumor Marker Alpha Fetoprotein 1.4 NG/ML Test 08/27/17 07:50 08/27/17 07:55 Blood Urea Nitrogen 7 MG/DL Creatinine 0.39 MG/DL Random Glucose 97 MG/DL Total Protein 5.8 GM/DL Albumin 2.7 GM/DL Calcium Level 8.1 MG/DL Magnesium Level 2.1 MG/DL Alkaline Phosphatase 91 U/L Aspartate Amino Transf (AST/SGOT) 43 U/L Alanine Aminotransferase (ALT/SGPT) 326 U/L Total Bilirubin 0.2 MG/DL Sodium Level 140 MEQ/L Potassium Level 3.8 MEQ/L Chloride Level 105 MEQ/L Carbon Dioxide Level 29.6 MEQ/L Anion Gap 5 MEQ/L Estimat Glomerular Filtration Rate 193 ML/MIN Imaging Last Impressions Liver Ultrasound 08/26/17 0000 Signed Impressions: Service Date/Time: Saturday, August 26, 2017 18:11 - CONCLUSION: Upper limits of normal size liver. Otherwise normal right upper quadrant ultrasound. Kirk Gillespie MD Abdomen/Pelvis/Transvag US 08/25/178 Signed Impressions: Service Date/Time: Friday, August 25, 2017 22:10 - CONCLUSION: 3.7 cm bilobed cystic area in the left adnexa/ovary. This is nonspecific. Typically, cystic lesions with this appearance are followed with an ultrasound in 6-12 weeks. Kirk Bojorquez MD Abdomen/Pelvis CT [id number] Signed Impressions: Service Date/Time: Friday, August 25, 2017 21:39 - CONCLUSION: 1. Bilobed left adnexal cyst measuring up to 3.9 x 2.4 cm. Exam degraded by some motion artifact. No other acute abnormalities. Sharad Ferrari MD Physical Exam HEENT: PERRL; normocephalic; atraumatic; no jaundice. CHEST: CTA CARDIAC: RRR ABDOMEN: Soft, nondistended, right quadrant TTP; bowel sounds are present in all four quadrants. EXTREMITIES: No clubbing, cyanosis, or edema. Mild obesity SKIN: Normal; no rash; no jaundice. 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 Still refusing endoscopy. Eating, able to ambulate. LFTs trending down, liver work up pending. PLAN - await rest of liver w/u - f/u with GI as outpt for liver w/u results - LORY - refusing endoscopy, GI will sign off. pt seen by myself and Dr Melendez and this note is on his behalf (Racheal Yoder) Plan agree with above note, patient refusing procedures and would like to be DC home she can FU as outpatient with GI MD of her choice (Yovani Melendez MD) Racheal Yoder Aug 28, 2017 10:42 Yovani Melendez MD Aug 28, 2017 15:12
[2017-08-28] MEDS ORDERED: cefTRIAXone 250 MG VIAL IM ONE (11:00)
[2017-08-28] MEDS ORDERED: LIDOCAINE HCL 1% 50 ML VIAL IM ONE (11:00)
[2017-08-28] MEDS ORDERED: VIBR100C PO (11:05)
--- NOTE | 2017-08-28 11:06 | HHI.DCPOC ---
Discharge Care Plan Diagnosis: (1) Elevated LFTs (2) PID (pelvic inflammatory disease) (3) Intractable abdominal pain (4) Left ovarian cyst Goals to Promote Your Health * To prevent worsening of your condition and complications * To maintain your health at the optimal level Directions to Meet Your Goals Take your medications as prescribed Follow your dietary instruction Follow activity as directed Keep your appointments as scheduled Take your immunizations and boosters as scheduled If your symptoms worsen call your PCP, if no PCP go to Urgent Care Center or Emergency Room Smoking is Dangerous to Your Health. Avoid second hand smoke Call the 24-hour hour crisis hotline for domestic abuse at Lindsey Casiano PA-C Aug 28, 2017 11:06
--- NOTE | 2017-08-28 11:12 | HHI.DS ---
Discharge Summary Admission Date Aug 25, 2017 at 20:00 pm Discharge Date: Aug 28, 2017 Admitting Diagnosis intractable abdominal pain, ovarian cyst, hypokalemia (1) Intractable abdominal pain ICD Code: R10.9 - Unspecified abdominal pain Status: Acute (2) Elevated LFTs ICD Code: R79.89 - Other specified abnormal findings of blood chemistry (3) Genital warts ICD Code: A63.0 - Anogenital (venereal) warts (4) IVDU (intravenous drug user) ICD Code: F19.90 - Other psychoactive substance use, unspecified, uncomplicated Procedures none Brief History - From Admission 31-year-old female with a PMH of Anxiety, HPV, Genital Warts, Tobacco Abuse and IVDU who presented to the ER w/ complaints of abdominal pain. States pain has been ongoing for approx 2 wks. Located in RLQ/groin. States pain is constant, severe, 10/10, non-radiating. No associated nausea, vomiting or diarrhea. States she's been "self-medicating w/ Dilaudid" IV after taking Lortab w/ no improvement. On arrival, BP 137/89, HR 77, O2 sat 100% on RA. Afebrile. CBC unremarkable. Chemistry essentially unremarkable except for elevated LFTs. AST 102, ALT 601, previously normal on 02/22/11. Believes she was tested for Hepatitis while incarcerated. Transvaginal US 3.7 cm bilobed cystic area and left adnexa/ovary, recommendation for follow-up in 6-[address] Abd/Pelvis w / similar results. S/p Dilaudid x2 and Morphine IV in ER w/ no improvement. CBC/BMP: 08/26/17 0755 08/27/17 0755 Significant Findings Laboratory Tests Test 08/25/17 20:15 08/25/17 22:00 08/25/17 22:30 08/26/17 07:55 Lymphocytes (%) (Auto) 44.6 % (9.0-44.0) 48.7 % (9.0-44.0) Blood Urea Nitrogen 5 MG/DL (7-18) 4 MG/DL (7-18) Random Glucose 114 MG/DL (74-106) 121 MG/DL (74-106) Albumin 3.0 GM/DL (3.4-5.0) 2.4 GM/DL (3.4-5.0) Calcium Level 8.1 MG/DL (8.5-10.1) 7.9 MG/DL (8.5-10.1) Aspartate Amino Transf (AST/SGOT) 102 U/L (15-37) 67 U/L (15-37) Alanine Aminotransferase (ALT/SGPT) 601 U/L (10-53) 428 U/L (10-53) Potassium Level 3.1 MEQ/L (3.5-5.1) Anion Gap 4 MEQ/L (5-15) Acetaminophen Level LESS THAN 2.0 MCG/ML Urine Specific [place] GREATER THAN 1.050 Urine Opiates Screen POS (NEG) Urine Amphetamines Screen POS (NEG) Red Blood Count 3.84 MIL/MM3 (4.00-5.30) Hematocrit 34.9 % (35.0-46.0) Monocytes (%) (Auto) 9.6 % (0.0-8.0) Eosinophils (%) (Auto) 4.9 % (0.0-4.0) Creatinine 0.46 MG/DL (0.50-1.00) Total Protein 5.5 GM/DL (6.4-8.2) Chloride Level 108 MEQ/L (98-107) Total Iron Binding Capacity 241 MCG/DL (250-450) Test 08/27/17 07:50 08/27/17 07:55 Creatinine 0.39 MG/DL (0.50-1.00) Total Protein 5.8 GM/DL (6.4-8.2) Albumin 2.7 GM/DL (3.4-5.0) Calcium Level 8.1 MG/DL (8.5-10.1) Aspartate Amino Transf (AST/SGOT) 43 U/L (15-37) Alanine Aminotransferase (ALT/SGPT) 326 U/L (10-53) Imaging Last Impressions Liver Ultrasound 08/26/17 0000 Signed Impressions: Service Date/Time: Saturday, August 26, 2017 18:11 - CONCLUSION: Upper limits of normal size liver. Otherwise normal right upper quadrant ultrasound. Kirk Gillespie MD Abdomen/Pelvis/Transvag US [id number] Signed Impressions: Service Date/Time: Friday, August 25, 2017 22:10 - CONCLUSION: 3.7 cm bilobed cystic area in the left adnexa/ovary. This is nonspecific. Typically, cystic lesions with this appearance are followed with an ultrasound in 6-12 weeks. Kirk Bojorquez MD Abdomen/Pelvis CT [id number] Signed Impressions: Service Date/Time: Friday, August 25, 2017 21:39 - CONCLUSION: 1. Bilobed left adnexal cyst measuring up to 3.9 x 2.4 cm. Exam degraded by some motion artifact. No other acute abnormalities. Sharad Ferrari MD PE at Discharge GENERAL: Well-nourished, well-developed female patient in [facility]. SKIN: Warm and dry. No rash. HEENT: Normocephalic. Atraumatic.Pupils equal and round. Mucous membranes pink and moist. NECK: Supple. Trachea midline. CARDIOVASCULAR: Regular rate and rhythm. S1, S2 noted. No murmur appreciated. RESPIRATORY: No accessory muscle use. Clear to auscultation. Breath sounds equal bilaterally. GASTROINTESTINAL: Abdomen soft, non-tender today, nondistended. Normoactive bowel sounds x4. MUSCULOSKELETAL: No obvious deformities. Extremities without clubbing, cyanosis , or edema. NEUROLOGICAL: Awake and alert. No obvious cranial nerve deficits. Motor grossly within normal limits. Normal speech. Pt update on day of discharge Follow up for abdominal pain. The patient is seen resting in bed. She reports abdominal pain improving however still present. Denies any fevers/chills, nausea /vomiting. She is tolerating oral intake. She is refusing any EGD or colonoscopy. She agrees to go home today, requesting pain medications. She has no other medical complaints at this time. Hospital Course The patient was admitted with intractable abdominal pain, etiology unclear despite extensive work up. She also has elevated LFTs when compared to previously. Differential diagnosis Hepatitis vs PID vs [place] vs Drug seeking. Transvaginal US w/ 3.7cm left adnexal cyst, CT Abd/Pelvis w/ similar findings, images reviewed by me. No obvious pathology to explain complaints. Given oxycodone prn and IV morphine prn pain. GI consulted, offered EGD/ colonoscopy however patient refused. LFTs trending down. Hepatitis panel still pending at discharge. GI recommended INTERACTIVE DESIGNER eval. Seen by gynecology, patient had cervical motion tenderness on exam however in the ED gonococcal/chlamydia/wet prep/trich/yeast all negative. INTERACTIVE DESIGNER recommended empirically treating for PID with IM rocephin and doxy po [id number]. Patient's symptoms continued to improve throughout admission, she was tolerating oral intake with no nausea/vomiting. She's ambulating the hallways without difficulty x2days. She was instructed to avoid all tylenol products. Also instructed to follow up with GI to complete evaluation for elevated LFTs. She was also instructed to follow up with favor maker in 2 weeks. Patient verbalized understanding of plan and agrees with discharge home. Genital Warts: No treatment while incarcerated x5 yrs, recently started on Cryotherapy w/ no significant improvement, referred to Dr. Gomez, pt pending appt. Instructed her to follow up as scheduled. IVDU: admits to IVDU w/ Dilaudid. Counseled Pt Condition on Discharge: Stable Discharge Disposition: Discharge Home Discharge Time: > 30 minutes Discharge Instructions DIET: Follow Instructions for: As Tolerated, No Restrictions Activities you can perform: Regular-No Restrictions Follow up Referrals: Gastroenterology - 1 Week @ [facility] - 1 Week @ [facility] [place] PCP Follow-up - 1 Week New Orders: HEPATIC FUNCTION FINK - 1 Week New Medications: Doxycycline Hyclate (Vibramycin) 100 Mg Cap 100 MG PO BID for Infection for 14 Days, #28 CAP 0 Refills Oxycodone (Oxycodone) 5 Mg Tab 5 MG PO Q4H PRN for PAIN, #12 TAB 0 Refills Continued Medications: Gabapentin (Gabapentin) 800 Mg Tab 800 MG PO TID, #90 TAB 0 Refills Discontinued Medications: Acetaminophen-Codeine (Tylenol-Codeine #3) 300-30 mg Tab 1 TAB PO Q4H PRN for PAIN, #20 TAB 0 Refills Hydrocodone-Acetaminophen (Hydrocodone-Acetaminophen) 7.5 Mg-325 Mg Tab 1 TAB PO Q4H PRN for PAIN, TAB 0 Refills Metronidazole (Flagyl) Unknown Strength Cap Unknown Dose PO BID for Infection, CAP 0 Refills Lindsey Casiano PA-C Aug 28, 2017 11:12 am
[2017-08-28] MEDS ORDERED: DOXYCYCLINE HYCLATE 100 MG TAB PO ONE (12:00)
[2017-08-28] MEDS ORDERED: OXYC-392 PO (12:04)
[2017-08-28 14:31] LABS: HEPATITIS B CORE AB IGM NEGATIVE (NEGATIVE); HEPATITIS B SURFACE ANTIGEN NEGATIVE (NEGATIVE); HEPATITIS C AB IgG REACTIVE (NEGATIVE)
[2017-08-28 14:36] LABS: HEPATITIS A AB IGM NEGATIVE (NEGATIVE)
[2017-08-29 15:56] LABS: SMOOTH MUSCLE TOTAL AUTOABS Negative (Negative); TRANSGLUTAMINASE IGA AB <1.2 U/mL; TRANSGLUTAMINASE IGG AB <1.2 U/mL
[2017-08-30 12:19] LABS: ALPHA-1-ANTITRYPSIN 180 mg/dL (100 - 190)
[2017-08-30 19:52] LABS: CERULOPLASMIN 29 mg/dL (18-53)
== END 2017-08-28 13:31 | disposition home or self-care (01) ==
LOC: NEPD 19:33 → NEDA 08-26 → NEPGCP 08-26 01:28
PROVIDERS: ADMIT Hospitalist; ATTEND Hospitalist
DX: N73.9 Female pelvic inflammatory disease, unspecified (principal); N83.202 Unspecified ovarian cyst, left side; E87.6 Hypokalemia; R74.0 Nonspecific elevation of levels of transaminase and lactic acid dehydrogenase [LDH]; A63.0 Anogenital (venereal) warts; C53.9 Malignant neoplasm of cervix uteri, unspecified; G51.0 Bell's palsy; R79.89 Other specified abnormal findings of blood chemistry; F17.200 Nicotine dependence, unspecified, uncomplicated; F41.9 Anxiety disorder, unspecified; F19.10 Other psychoactive substance abuse, uncomplicated
CPT/HCPCS: 74177; 76705; 76830; 76856; 80053; 80074; 80307; 81001; 82103; 82105; 82390; 82728; 83516; 83520; 83540; 83550; 83690; 83735; 84702; 85025; 85610; 85730; 86038; 86255; 87210; 87491; 87591; 93975; 96361; 96372; 96374; 96375; 96376; 99285; G0378; J0696; J1170; J2270; J2405; J7030; Q9967

== ENCOUNTER 2017-09-20 16:33 | Emergency (ER) | payer OTHER, MEDICAID ==
[~2017-09-20 16:33] MED LIST changes: +GABA800T PO; +OXYC-392 PO; -TYLETAB34 PO; +VIBR100C PO
[2017-09-20 16:37] VITALS: BP 138/80; PULSE 118; RESP 20; TEMP 98.2; O2SAT 96
[2017-09-20 17:54] LABS: AUTOMATED NEUTROPHIL # 11.9 TH/MM3 (1.8-7.7); BASOPHIL # 0.1 TH/MM3 (0-0.2); BASOPHIL % 0.4 % (0.0-2.0); EOSINOPHIL # 0.5 TH/MM3 (0-0.4); EOSINOPHIL % 3.3 % (0.0-4.0); HEMOGLOBIN 13.6 GM/DL (11.6-15.3); LYMPHOCYTE # 2.2 TH/MM3 (1.0-4.8); MEAN CELL VOLUME 89.5 FL (80.0-100.0); MEAN CORPUSCULAR HEMOGLOBIN 31.2 PG (27.0-34.0); MEAN CORPUSCULAR HGB CONC 34.8 % (32.0-36.0); MEAN PLATELET VOLUME 7.1 FL (7.0-11.0); MONO % 7.4 % (0.0-8.0); MONOCYTE # 1.2 TH/MM3 (0-0.9); NEUT % 74.9 % (16.0-70.0); PLATELET COUNT 319 TH/MM3 (150-450); RED BLOOD COUNT 4.36 MIL/MM3 (4.00-5.30); RED CELL DISTRIBUTION WIDTH 13.1 % (11.6-17.2); WHITE BLOOD COUNT 15.8 TH/MM3 (4.0-11.0)
[2017-09-20 17:58] LABS: BICARBONATE 29.4 MEQ/L (21.0-32.0); CALCIUM 8.7 MG/DL (8.5-10.1); CREATININE 0.58 MG/DL (0.50-1.00)
--- NOTE | 2017-09-20 19:25 | PD ---
HPI Chief Complaint: Abdominal Pain Time Seen by Provider: 16:52 Travel History International Travel<30 days: No Contact w/Intl Traveler<30days: No Traveled to known affect area: No PFSH Past Medical History Asthma: No Autoimmune Disease: No Blood Disorders: No Anxiety: Yes (prescribed xanax but does not take it) Depression: No Heart Rhythm Problems: No Cancer: Yes (cervical cancer diagnosed in jul 2017) Cardiovascular Problems: No High Cholesterol: No Chemotherapy: No Chest Pain: No Congestive Heart Failure: No COPD: No Diabetes: No Diminished Hearing: No Endocrine: No Gastrointestinal Disorders: No Genitourinary: No Immune Disorder: No Musculoskeletal: No Neurologic: No Psychiatric: No Reproductive: No Respiratory: No Immunizations Current: No Radiation Therapy: No Sleep Apnea: No Thyroid Disease: No : 3 Para: 2 Miscarriage: 1 : 0 Dilation and Curettage (D&C): Yes Past Surgical History Abdominal Surgery: No Body Medical Devices: metal pins in right wrist Cardiac Surgery: No Ear Surgery: No Eye Surgery: No Genitourinary Surgery: No Gynecologic Surgery: Yes (D&C 2002, CRYO THERAPY FOR HPV) Oral Surgery: No Pacemaker: No Thoracic Surgery: No Other Surgery: Yes (D&C 2002) Social History Alcohol Use: Yes Tobacco Use: Yes Substance Use: Yes (1200 08/25/17- 08/03 pill of dilaudid) Allergies-Medications (Allergen,Severity, Reaction): Coded Allergies: butorphanol (Unverified Adverse Reaction, Severe, 08/07/17) ketorolac (Unverified Adverse Reaction, Severe, SOB, 08/07/17) ibuprofen (Unverified Adverse Reaction, Mild, UPSET STOMACH, 08/07/17) Reported Meds & Prescriptions Reported Meds & Active Scripts Active Oxycodone (Oxycodone HCl) 5 Mg Tab 5 Mg PO Q4H PRN Vibramycin (Doxycycline Hyclate) 100 Mg Cap 100 Mg PO BID 14 Days Reported Gabapentin 800 Mg Tab 800 Mg PO TID Data Data Last Documented VS Vital Signs Date Time Temp Pulse Resp B/P (MAP) Pulse Ox O2 Delivery O2 Flow Rate FiO2 09/20/17 16:37 98.2 118 20 138/80 (99) 96 Orders Orders Complete Blood Count With Diff (09/20/17 16:56) Basic Metabolic Panel (Bmp) (09/20/17 16:56) Urinalysis - C+S If Indicated (09/20/17 16:56) Ed Urine Pregnancytest Poc (09/20/17 16:56) Labs Laboratory Tests Test 09/20/17 17:04 09/20/17 17:21 Urine Color YELLOW Urine Turbidity HAZY Urine pH 6.5 Urine Specific [place] 1.022 Urine Protein NEG mg/dL Urine Glucose (UA) NEG mg/dL Urine Ketones NEG mg/dL Urine Occult Blood NEG Urine Nitrite NEG Urine Bilirubin NEG Urine Urobilinogen LESS THAN 2.0 MG/DL Urine Leukocyte Esterase NEG Urine RBC 1 /hpf Urine WBC 3 /hpf Urine Squamous Epithelial Cells 6 /hpf Urine Mucus FEW /lpf Microscopic Urinalysis Comment CULT NOT INDICATED White Blood Count 15.8 TH/MM3 Red Blood Count 4.36 MIL/MM3 Hemoglobin 13.6 GM/DL Hematocrit 39.0 % Mean Corpuscular Volume 89.5 FL Mean Corpuscular Hemoglobin 31.2 PG Mean Corpuscular Hemoglobin Concent 34.8 % Red Cell Distribution Width 13.1 % Platelet Count 319 TH/MM3 Mean Platelet Volume 7.1 FL Neutrophils (%) (Auto) 74.9 % Lymphocytes (%) (Auto) 14.0 % Monocytes (%) (Auto) 7.4 % Eosinophils (%) (Auto) 3.3 % Basophils (%) (Auto) 0.4 % Neutrophils # (Auto) 11.9 TH/MM3 Lymphocytes # (Auto) 2.2 TH/MM3 Monocytes # (Auto) 1.2 TH/MM3 Eosinophils # (Auto) 0.5 TH/MM3 Basophils # (Auto) 0.1 TH/MM3 CBC Comment DIFF FINAL Differential Comment Blood Urea Nitrogen 8 MG/DL Creatinine 0.58 MG/DL Random Glucose 99 MG/DL Calcium Level 8.7 MG/DL Sodium Level 137 MEQ/L Potassium Level 3.7 MEQ/L Chloride Level 104 MEQ/L Carbon Dioxide Level 29.4 MEQ/L Anion Gap 4 MEQ/L Estimat Glomerular Filtration Rate 122 ML/MIN Elaina Pettit Sep 20, 2017 19:25
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
[2017-09-20] MEDS ORDERED: SODIUM CHLOR 0.9% 1000 ML INJ 1,000 ML IV ONE (21:45)
[2017-09-20 21:53] LABS: AUTOMATED NEUTROPHIL # 10.8 TH/MM3 (1.8-7.7); BASOPHIL # 0.1 TH/MM3 (0-0.2); BASOPHIL % 0.6 % (0.0-2.0); EOSINOPHIL # 0.5 TH/MM3 (0-0.4); HEMATOCRIT 39.1 % (35.0-46.0); HEMOGLOBIN 13.3 GM/DL (11.6-15.3); LYMPH % 20.1 % (9.0-44.0); LYMPHOCYTE # 3.1 TH/MM3 (1.0-4.8); MEAN CELL VOLUME 89.4 FL (80.0-100.0); MEAN CORPUSCULAR HEMOGLOBIN 30.3 PG (27.0-34.0); MEAN CORPUSCULAR HGB CONC 33.9 % (32.0-36.0); MEAN PLATELET VOLUME 7.1 FL (7.0-11.0); MONO % 6.1 % (0.0-8.0); MONOCYTE # 0.9 TH/MM3 (0-0.9); NEUT % 70.2 % (16.0-70.0); PLATELET COUNT 320 TH/MM3 (150-450); RED BLOOD COUNT 4.38 MIL/MM3 (4.00-5.30); RED CELL DISTRIBUTION WIDTH 13.1 % (11.6-17.2); WHITE BLOOD COUNT 15.4 TH/MM3 (4.0-11.0)
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
--- NOTE | 2017-09-20 23:26 | RADRPT ---
EXAM DATE/TIME: 09/20/2017 22:26 [facility] COMPARISON: No previous studies available for comparison. INDICATIONS : Cramping and Bleeding. LAB(S): Beta-hC MEDICAL HISTORY : Cervical Cancer. SURGICAL HISTORY : Right wrist surgery. Dilation and Curettage. ENCOUNTER: Initial ACUITY: 1 day PAIN SCORE: 2/10 LOCATION: Bilateral pelvis MEASUREMENTS: UTERUS: 8.0 x 5.3 x 3.5 cm ENDOMETRIAL STRIPE: 4 mm RIGHT OVARY: 3.5 x 2.0 x 1.7 cm LEFT OVARY: 3.5 x 2.7 x 1.9 cm FREE FLUID: No. CROWN RUMP LENGTH: Not visualized = WKS DAYS FHR: Not visualized BPM FINDINGS: UTERUS: The myometrium has homogeneous echotexture without mass.No gestational sac is identified. RIGHT OVARY: Ovary contains no mass or significant cystic lesion. LEFT OVARY: Ovary contains no mass or significant cystic lesion. MISCELLANEOUS: No free fluid. CONCLUSION: Unremarkable exam. The endometrium is within normal limits with no visualized intraut erine . The ovaries and adnexa appear unremarkable. With a beta-hCG at this level and ectopi c cannot be excluded. Miguel Estes MD on September 20, 2017 at 23:23 Board Certified Radiologist. This report was verified electronically.
[2017-09-21 00:03] VITALS: BP 113/55; PULSE 75; RESP 18; O2SAT 100
== END 2017-09-21 00:05 | disposition home or self-care (01) ==
LOC: NEPD 16:33
DX: O20.0 Threatened abortion (principal); R10.2 Pelvic and perineal pain; S62.667A Nondisplaced fracture of distal phalanx of left little finger, initial encounter for closed fracture; V48.1XXA Car passenger injured in noncollision transport accident in nontraffic accident, initial encounter; Y92.89 Other specified places as the place of occurrence of the external cause; F19.10 Other psychoactive substance abuse, uncomplicated
CPT/HCPCS: 29130; 73140; 76700; 80048; 84702; 84703; 85025; 99285; J7030; 81001

== ENCOUNTER 2017-09-25 18:32 | Emergency (ER) | payer MEDICAID ==
[2017-09-25 18:38] VITALS: BP 135/85; PULSE 111; RESP 20; TEMP 98.5; O2SAT 98
[2017-09-25 20:22] VITALS: BP 145/84; PULSE 105; RESP 20; O2SAT 98
[2017-09-25] MEDS ORDERED: ACETAMINOPHEN 325 MG TAB PO ONE (20:45)
[2017-09-25] MEDS ORDERED: SODIUM CHLOR 0.9% 1000 ML INJ 1,000 ML IV ONE (20:45)
--- NOTE | 2017-09-25 21:08 | PD ---
HPI Chief Complaint: Related Problem Time Seen by Provider: 20:33 Travel History International Travel<30 days: No Contact w/Intl Traveler<30days: No Traveled to known affect area: No History of Present Illness HPI 31-year-old female presents to the emergency department stating that she believes she is miscarrying. He is having vaginal bleeding and has been having it for a 3-4 weeks. She has history of chronic abdominal pain as well. She reports that she injects IV Dilaudid. Patient states that she is a G2 10, P2 with 1 stillborn child and 1 living child. 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 She reports pelvic pain and cramping. Patient was seen here on September 20, 2017 and was found to be an early with a beta hCG of 379. Pelvic ultrasound was unremarkable with no visualized intrauterine . Ectopic could not be excluded at that time. She reports history of cervical cancer, ovarian cyst. PFSH Past Medical History Asthma: No Autoimmune Disease: No Blood Disorders: No Anxiety: Yes (prescribed xanax but does not take it) Depression: No Heart Rhythm Problems: No Cancer: Yes (cervical cancer diagnosed in jul 2017) Cardiovascular Problems: No High Cholesterol: No Chemotherapy: No Chest Pain: No Congestive Heart Failure: No COPD: No Diabetes: No Diminished Hearing: No Endocrine: No Gastrointestinal Disorders: No Genitourinary: No Hypertension: No Immune Disorder: No Implanted Vascular Access Dvce: Yes Musculoskeletal: No Neurologic: No Psychiatric: No Reproductive: No Respiratory: No Immunizations Current: No Radiation Therapy: No Sleep Apnea: No Thyroid Disease: No Tetanus Vaccination: Unknown Influenza Vaccination: No ?: : 10 Para: 1 Miscarriage: 8 : 0 Dilation and Curettage (D&C): Yes Past Surgical History Abdominal Surgery: No Body Medical Devices: metal pins in right wrist Cardiac Surgery: No Ear Surgery: No Eye Surgery: No Genitourinary Surgery: No Gynecologic Surgery: Yes (D&C 2002, CRYO THERAPY FOR HPV) Neurologic Surgery: No Oral Surgery: No Pacemaker: No Thoracic Surgery: No Other Surgery: Yes (r/ wrist surgery, d&c x 2) Social History Alcohol Use: Yes Tobacco Use: Yes Substance Use: Yes (1200 08/25/17- 08/03 pill of dilaudid) Allergies-Medications (Allergen,Severity, Reaction): Coded Allergies: butorphanol (Unverified Adverse Reaction, Severe, 09/25/17) ketorolac (Unverified Adverse Reaction, Severe, SOB, 09/25/17) ibuprofen (Unverified Adverse Reaction, Mild, UPSET STOMACH, 09/25/17) Reported Meds & Prescriptions Reported Meds & Active Scripts Active Oxycodone (Oxycodone HCl) 5 Mg Tab 5 Mg PO Q4H PRN Review of Systems Except as stated in HPI: all other systems reviewed are Neg Physical Exam Narrative GENERAL: Well-nourished, well-developed female patient, afebrile. SKIN: Focused skin assessment warm/dry. HEAD: Normocephalic. Atraumatic. EYES: No scleral icterus. No injection or drainage. NECK: Supple, trachea midline. No JVD or lymphadenopathy. CARDIOVASCULAR: Regular rate and rhythm without murmurs, gallops, or rubs. RESPIRATORY: Breath sounds equal bilaterally. No accessory muscle use. Lungs sounds are clear to auscultation. GASTROINTESTINAL: Abdomen soft, non-tender, nondistended. When patient is distracted, she has no reproducible pelvic tenderness. No guarding. No rebound tenderness. MUSCULOSKELETAL: No cyanosis, or edema. BACK: Nontender without obvious deformity. No CVA tenderness. GENITOURINARY: Normal external genitalia without lesions or erythema. Vaginal vault with minimal blood, no drainage. Cervical os with mild blood noted. No cervical motion tenderness. Uterus nontender and nonenlarged. Bilateral adnexa nontender without masses. His exam was done with AALIYAH Mae, at bedside. Data Data Last Documented VS Vital Signs Date Time Temp Pulse Resp B/P (MAP) Pulse Ox O2 Delivery O2 Flow Rate FiO2 09/25/17 20:22 105 20 145/84 (104) 98 Room Air 09/25/17 18:38 98.5 Orders Orders Complete Blood Count With Diff (09/25/17 18:40) Basic Metabolic Panel (Bmp) (09/25/17 18:40) Urinalysis - C+S If Indicated (09/25/17 18:40) Beta Hcg (Quant/Titer) (09/25/17 18:40) Complete Rh (09/25/17 20:35) Acetaminophen (Tylenol) (09/25/17 20:45) Sodium Chlor 0.9% 1000 Ml Inj (Ns 1000 M (09/25/17 20:45) Us Pelvis (Ques Preg/Ectopic) (09/25/17 ) Iv Access Insert/Monitor (09/25/17 20:41) Labs Laboratory Tests Test 09/25/17 22:00 White Blood Count 12.0 TH/MM3 Red Blood Count 4.35 MIL/MM3 Hemoglobin 13.2 GM/DL Hematocrit 38.3 % Mean Corpuscular Volume 88.1 FL Mean Corpuscular Hemoglobin 30.3 PG Mean Corpuscular Hemoglobin Concent 34.4 % Red Cell Distribution Width 12.9 % Platelet Count 399 TH/MM3 Mean Platelet Volume 7.6 FL Neutrophils (%) (Auto) 57.9 % Lymphocytes (%) (Auto) 27.6 % Monocytes (%) (Auto) 10.2 % Eosinophils (%) (Auto) 3.4 % Basophils (%) (Auto) 0.9 % Neutrophils # (Auto) 7.0 TH/MM3 Lymphocytes # (Auto) 3.3 TH/MM3 Monocytes # (Auto) 1.2 TH/MM3 Eosinophils # (Auto) 0.4 TH/MM3 Basophils # (Auto) 0.1 TH/MM3 CBC Comment DIFF FINAL Differential Comment MDM Medical Decision Making Medical Screen Exam Complete: Yes Emergency Medical Condition: Yes Medical Record Reviewed: Yes Differential Diagnosis Threatened miscarriage versus spontaneous versus intrauterine versus UTI Narrative Course 31-year-old female presents to the emergency department for evaluation of pelvic cramping and vaginal bleeding during . CBC, BMP, beta hCG, UA, complete Rh are ordered and pending. Ultrasound of the pelvis is ordered and pending. Patient is given normal saline 1 L IV bolus, Tylenol 650 mg by mouth. CBC shows leukocytosis 12.0. BMP, HCG, UA, US are pending. Blood type is A+. Dr. Sánchez will resume care and disposition of patient. Corinne Flanagan Sep 25, 2017 21:08
[2017-09-25 22:43] LABS: BASOPHIL # 0.1 TH/MM3 (0-0.2); BASOPHIL % 0.9 % (0.0-2.0); EOSINOPHIL # 0.4 TH/MM3 (0-0.4); EOSINOPHIL % 3.4 % (0.0-4.0); HEMATOCRIT 38.3 % (35.0-46.0); HEMOGLOBIN 13.2 GM/DL (11.6-15.3); LYMPH % 27.6 % (9.0-44.0); LYMPHOCYTE # 3.3 TH/MM3 (1.0-4.8); MEAN CELL VOLUME 88.1 FL (80.0-100.0); MEAN CORPUSCULAR HEMOGLOBIN 30.3 PG (27.0-34.0); MEAN CORPUSCULAR HGB CONC 34.4 % (32.0-36.0); MEAN PLATELET VOLUME 7.6 FL (7.0-11.0); MONO % 10.2 % (0.0-8.0); MONOCYTE # 1.2 TH/MM3 (0-0.9); NEUT % 57.9 % (16.0-70.0); PLATELET COUNT 399 TH/MM3 (150-450); RED BLOOD COUNT 4.35 MIL/MM3 (4.00-5.30); RED CELL DISTRIBUTION WIDTH 12.9 % (11.6-17.2)
[2017-09-25 23:13] LABS: BICARBONATE 24.3 MEQ/L (21.0-32.0); CALCIUM 9.7 MG/DL (8.5-10.1); CREATININE 0.84 MG/DL (0.50-1.00)
--- NOTE | 2017-09-25 23:51 | RADRPT ---
EXAM DATE/TIME: 09/25/2017 21:55 [facility] COMPARISON: US PELVIS ([facility] PREG/ECTOPIC), September 20, 2017, 22:26. INDICATIONS : Cramping/Bleeding. LAB(S): Beta-hC MEDICAL HISTORY : Cervical Cancer. SURGICAL HISTORY : Right wrist surgery. Dilation and Curettage. ENCOUNTER: Subsequent ACUITY: 4-6 days PAIN SCORE: 0/10 LOCATION: Bilateral pelvis MEASUREMENTS: UTERUS: 7.2 x 5.5 x 3.2 cm ENDOMETRIAL STRIPE: 5 mm RIGHT OVARY: 3.7 x 1.9 x 1.5 cm LEFT OVARY: 3.8 x 1.8 x 1.6 cm FREE FLUID: No CROWN RUMP LENGTH: Not Visualized. = WKS DAYS FHR: Not visualized. BPM FINDINGS: UTERUS: No intrauterine gestational sac. Redemonstration of small probable nabothian cysts. Otherwise, uterus is unremarkable. RIGHT OVARY: Ovary contains no mass or significant cystic lesion. LEFT OVARY: Ovary contains no mass or significant cystic lesion. MISCELLANEOUS: No free fluid. CONCLUSION: 1. Unremarkable pelvic ultrasound examination with no significant interval change. 2. Again, an intrauterine is not identified. No sonographic evidence for ectopic . However, ectopic cannot be excluded given the persistent elevated beta-hCG. Chon Grier MD on September 25, 2017 at 23:47 Board Certified Radiologist. This report was verified electronically.
[2017-09-26] MEDS ORDERED: CLIN300C5 PO (00:01)
--- NOTE | 2017-09-26 00:10 | PD ---
Data Data Last Documented VS Vital Signs Date Time Temp Pulse Resp B/P (MAP) Pulse Ox O2 Delivery O2 Flow Rate FiO2 09/25/17 20:22 105 20 145/84 (104) 98 Room Air 09/25/17 18:38 98.5 Orders Orders Complete Blood Count With Diff (09/25/17 18:40) Basic Metabolic Panel (Bmp) (09/25/17 18:40) Urinalysis - C+S If Indicated (09/25/17 18:40) Beta Hcg (Quant/Titer) (09/25/17 18:40) Complete Rh (09/25/17 20:35) Acetaminophen (Tylenol) (09/25/17 20:45) Sodium Chlor 0.9% 1000 Ml Inj (Ns 1000 M (09/25/17 20:45) Us Pelvis (Ques Preg/Ectopic) (09/25/17 ) Iv Access Insert/Monitor (09/25/17 20:41) Gc And Chlamydia Pcr (09/25/17 23:01) Wet Prep Profile (09/25/17 23:01) Labs Laboratory Tests Test 09/25/17 22:00 09/25/17 23:00 White Blood Count 12.0 TH/MM3 Red Blood Count 4.35 MIL/MM3 Hemoglobin 13.2 GM/DL Hematocrit 38.3 % Mean Corpuscular Volume 88.1 FL Mean Corpuscular Hemoglobin 30.3 PG Mean Corpuscular Hemoglobin Concent 34.4 % Red Cell Distribution Width 12.9 % Platelet Count 399 TH/MM3 Mean Platelet Volume 7.6 FL Neutrophils (%) (Auto) 57.9 % Lymphocytes (%) (Auto) 27.6 % Monocytes (%) (Auto) 10.2 % Eosinophils (%) (Auto) 3.4 % Basophils (%) (Auto) 0.9 % Neutrophils # (Auto) 7.0 TH/MM3 Lymphocytes # (Auto) 3.3 TH/MM3 Monocytes # (Auto) 1.2 TH/MM3 Eosinophils # (Auto) 0.4 TH/MM3 Basophils # (Auto) 0.1 TH/MM3 CBC Comment DIFF FINAL Differential Comment Blood Urea Nitrogen 15 MG/DL Creatinine 0.84 MG/DL Random Glucose 82 MG/DL Calcium Level 9.7 MG/DL Sodium Level 134 MEQ/L Potassium Level 3.5 MEQ/L Chloride Level 100 MEQ/L Carbon Dioxide Level 24.3 MEQ/L Anion Gap 10 MEQ/L Estimat Glomerular Filtration Rate 80 ML/MIN Human Chorionic Gonadotropin, Quant 326 MIU/ML Clue Cells (Wet Prep) PRESENT Vaginal Trichomonas (Wet Prep) NONE SEEN Vaginal Yeast (Wet Prep) NONE SEEN MDM Medical Record Reviewed: Yes Supervised Visit with LAURIE: Yes Narrative Course During the course of the patient's emergency department visit, the patient's history, examination, and differential diagnosis were reviewed with the patient. The patient was placed on a student union consultant with oximetry and frequent blood pressure monitoring. The patient had IV access obtained and blood work sent for analysis. The patient was initially seen by Corinne. Please see her complete history and physical. The patient's case was checked out to me at the conclusion of her shift pending final blood work. The patient has a history of irregular vaginal bleeding and was diagnosed as being on September 20. An ultrasound was done at that time, however no intrauterine was able to be identified and the quantitative beta hCG was so low that it is difficult to determine whether the patient was early in versus had miscarried, versus had an early ectopic . The patient has continued to have spotting and pain that she reports back to the emergency department for evaluation and treatment. The patient was initially provided Tylenol for pain, normal saline IV fluid The patient's laboratory studies were reviewed and remarkable for a white count of 12, hemoglobin 13.2, platelets 399 with 10.2 monocytes, basic metabolic profile is remarkable for sodium of 134, GFR of 80, quantitative beta-hCG is 326 which is compared to her prior beta hCG at 379. The patient's white blood cell count has improved compared to the prior evaluation on July 20. The patient refuses to provide a urine sample at this time. A wet prep revealed clue cells present Radiology studies were reviewed and remarkable for an ultrasound reveals an unremarkable pelvic ultrasound exam for significant interval change from September 20, again an intrauterine is not identified, no sonographic evidence for ectopic , however ectopic cannot be excluded given the persistent elevated beta hCG. Again the patient was instructed to follow-up with the passenger elevator operator on-call that was previously recommended during her last evaluation, Dr. Coyle. The patient is resting comfortably and feels better, is alert and in no distress. The patient's results and examination findings were discussed with the patient. The repeat examination is unremarkable and benign. The history, exam, diagnostic testing, and current condition do not suggest any significant pathology to warrant further testing, continued ED treatment, admission, or surgical evaluation at this point. The vital signs have been stable. The patient does not have uncontrollable pain, intractable vomiting, or other significant symptoms. The patient's condition is stable and appropriate for discharge. The patient will pursue further outpatient evaluation with a primary care physician or other designated or consulting physician as indicated in the discharge instructions. The patient expressed understanding and was agreeable with this plan. Diagnosis Primary Impression: Bleeding in early Additional Impression: Bacterial vaginosis Referrals: Corinne Coyle MD 2 days Patient Instructions: Bacterial Vaginosis (ED), General Instructions, Threatened Miscarriage (ED) Med/Other Pt SpecificInfo: Prescription(s) given Scripts Clindamycin (Clindamycin) 300 Mg Cap 300 MG PO BID for Infection for 7 Days, #14 CAP 0 Refills Prov: Cherry Sánchez MD 09/26/17 Disposition: 01 DISCHARGE HOME Condition: Stable Cherry Sánchez MD Sep 26, 2017 00:10
== END 2017-09-26 00:25 | disposition home or self-care (01) ==
LOC: NEPE 18:32
DX: O20.9 Hemorrhage in early pregnancy, unspecified (principal); O23.599 Infection of other part of genital tract in pregnancy, unspecified trimester; N76.0 Acute vaginitis; B96.89 Other specified bacterial agents as the cause of diseases classified elsewhere; O99.330 Smoking (tobacco) complicating pregnancy, unspecified trimester; O99.320 Drug use complicating pregnancy, unspecified trimester; F11.90 Opioid use, unspecified, uncomplicated; Z3A.00 Weeks of gestation of pregnancy not specified
CPT/HCPCS: 76700; 76817; 80048; 84702; 85025; 86901; 87210; 87491; 87591; 96360; 99284; J7030

== ENCOUNTER 2017-10-07 07:13 | Emergency (ER) | payer MEDICAID ==
[~2017-10-07] VITALS: Ht 162.6 cm; Wt 81.5 kg
[~2017-10-07 07:13] MED LIST changes: +CLIN300C5 PO; -GABA800T PO; -VIBR100C PO
[2017-10-07 07:38] VITALS: BP 136/76; PULSE 95; RESP 16; TEMP 98.3; O2SAT 100
[2017-10-07] MEDS ORDERED: DILA8TAB4 PO (07:57)
[2017-10-07] MEDS ORDERED: GABA800T PO (07:57)
[2017-10-07] MEDS ORDERED: ADDE30TA PO (07:57)
[2017-10-07] MEDS ORDERED: SODIUM CHLOR 0.9% 1000 ML INJ 1,000 ML IV ONE (08:09)
[2017-10-07] MEDS ORDERED: ONDANSETRON HCL 4 MG/2 ML VIAL IVP ONE (08:15)
[2017-10-07] MEDS ORDERED: ACETAMINOPHEN 500 MG CPLT PO ONE (08:15)
[2017-10-07] MEDS ORDERED: MORPHINE SULFATE 4 MG/ML INJ IV PUSH ONE (08:15)
--- NOTE | 2017-10-07 08:19 | PD ---
HPI Chief Complaint: Abdominal Pain Time Seen by Provider: 07:54 Travel History International Travel<30 days: No Contact w/Intl Traveler<30days: No Traveled to known affect area: No History of Present Illness HPI The patient is a 31-year-old female who presents emergency department for multiple complaints. The patient states she has a history of cervical cancer, has undergone cryotherapy in the past, is currently intoxicated her insurance company, [id number], in regards to follow-up with a fashion patternmaker. The patient thought she was unable to get , however, was last month. The patient did have some lower abdominal pain and cramping followed by bleeding. The patient underwent a miscarriage, had beta hCGs FL and an ultrasound that was negative for IUP or ectopic . The patient stop bleeding 10 days ago, then developed lower pelvic abdominal pain. She does note a thin normal white vaginal discharge. The abdominal pain is located over the lower aspect of the pelvis, radiates to the flanks and back bilaterally. She denies any dysuria, frequency, or urgency. She also notes an abscess to left breast after shooting Dilaudid into the left breast several days ago. The area is tender to palpation. She does use Dilaudid that is not prescribed by a physician. She denies any fever. Symptoms are moderate. PFSH Past Medical History Hx Anticoagulant Therapy: No Asthma: No Autoimmune Disease: No Blood Disorders: No Anxiety: Yes Depression: No Heart Rhythm Problems: No Cancer: Yes (cervical cancer diagnosed in jul 2017) Cardiovascular Problems: No High Cholesterol: No Chemotherapy: No Chest Pain: No Congestive Heart Failure: No COPD: No Cerebrovascular Accident: No Diabetes: No Diminished Hearing: No Endocrine: No Gastrointestinal Disorders: No Genitourinary: No Hypertension: No Immune Disorder: No Implanted Vascular Access Dvce: Yes Musculoskeletal: No Neurologic: No Psychiatric: No Reproductive: No Respiratory: No Immunizations Current: No Radiation Therapy: No Sleep Apnea: No Thyroid Disease: No ?: Not : 10 Para: 2 Miscarriage: 8 : 0 Dilation and Curettage (D&C): Yes Past Surgical History Abdominal Surgery: No Body Medical Devices: metal pins in right wrist Cardiac Surgery: No Ear Surgery: No Eye Surgery: No Genitourinary Surgery: No Gynecologic Surgery: Yes (D&C 2002, CRYO THERAPY FOR HPV) Hysterectomy: No Neurologic Surgery: No Oral Surgery: No Pacemaker: No Thoracic Surgery: No Other Surgery: Yes (r/ wrist surgery, d&c x 2) Social History Alcohol Use: Yes Tobacco Use: Yes (1/2 PACK A DAY ) Substance Use: Yes (SHOOTS UP DILLDID IN LEFT BREST COUPLE OF WEEKS AGO ) Allergies-Medications (Allergen,Severity, Reaction): Coded Allergies: butorphanol (Unverified Adverse Reaction, Severe, 10/07/17) ketorolac (Unverified Adverse Reaction, Severe, SOB, 10/07/17) ibuprofen (Unverified Adverse Reaction, Mild, UPSET STOMACH, 10/07/17) Reported Meds & Prescriptions Reported Meds & Active Scripts Active Oxycodone (Oxycodone HCl) 5 Mg Cap 5 Mg PO Q8H PRN Bactrim DS (Sulfamethoxazole-Trimethoprim) 800-160 Mg Tab 1 Tab PO BID Flagyl (Metronidazole) 500 Mg Tab 500 Mg PO BID 7 Days Reported Gabapentin 800 Mg Tab 800 Mg PO TID Adderall (Amphetamine-Dextroamphetamine) 30 Mg Tab 30 Mg PO DAILY Avoid late evening doses. Space doses at least 4 to 6 hours if more than once/day dosing. Review of Systems Except as stated in HPI: all other systems reviewed are Neg General / Constitutional: No: Fever Cardiovascular: No: Chest Pain or Discomfort Respiratory: No: Shortness of Breath Gastrointestinal: Positive: Abdominal Pain, No: Nausea, Vomiting Genitourinary: Positive: Pelvic Pain, Discharge, No: Dysuria, Vaginal Bleeding Skin: Positive Other (abscess on the left breast after injecting Dilaudid) Physical Exam Narrative GENERAL: Awake, alert, 31-year-old female who appears her stated age and is in no acute respiratory distress. SKIN: Focused skin assessment warm/dry. Multiple tattoos noted. HEAD: Atraumatic. Normocephalic. EYES: Pupils equal and round. No scleral icterus. No injection or drainage. ENT: No nasal bleeding or discharge. Mucous membranes pink and moist. NECK: Trachea midline. No JVD. CARDIOVASCULAR: Regular rate and rhythm. No murmur appreciated. Heart rate in the 90s. Breasts: Exam was performed in the presence of a female nurse. Fluctuant superficial abscess on the left breast. RESPIRATORY: No accessory muscle use. Clear to auscultation. Breath sounds equal bilaterally. GASTROINTESTINAL: Abdomen soft, mild suprapubic discomfort. No guarding or rigidity. Back: No CVA tenderness. Pelvic: The exam was performed in the presence of a female nurse. External examination reveals genital large. Speculum examination reveals white discharge in vaginal vault. Cervix is closed. Mild bilateral adnexal tenderness. MUSCULOSKELETAL: No obvious deformities. No clubbing. No cyanosis. No edema. NEUROLOGICAL: Awake and alert. No obvious cranial nerve deficits. Motor grossly within normal limits. Normal speech. PSYCHIATRIC: Appropriate mood and affect; insight and judgment normal. Data Data Last Documented VS Vital Signs Date Time Temp Pulse Resp B/P (MAP) Pulse Ox O2 Delivery O2 Flow Rate FiO2 10/07/17 08:00 20 10/07/17 07:38 98.3 95 136/76 (96) 100 Orders Orders Complete Blood Count With Diff (10/07/17 08:09) Comprehensive Metabolic Panel (10/07/17 08:09) Gc And Chlamydia Pcr (10/07/17 08:09) Wet Prep Profile (10/07/17 08:09) Urinalysis - C+S If Indicated (10/07/17 08:09) Iv Access Insert/Monitor (10/07/17 08:09) Ecg Monitoring (10/07/17 08:09) Sodium Chlor 0.9% 1000 Ml Inj (Ns 1000 M (10/07/17 08:09) Ondansetron Inj (Zofran Inj) (10/07/17 08:15) Ed Urine Pregnancytest Poc (10/07/17 08:09) Morphine Inj (Morphine Inj) (10/07/17 08:15) Acetaminophen (Tylenol) (10/07/17 08:15) Us Pelvis Comp W Dop Transvag (10/07/17 08:09) Azithromycin Powd Pack (Zithromax Powd P (10/07/17 10:00) Ceftriaxone Inj (Rocephin Inj) (10/07/17 10:00) Lidocaine 1% Inj (Xylocaine 1% Inj) (10/07/17 10:30) Hydromorphone Pf Inj (Dilaudid Pf Inj) (10/07/17 12:15) Ed Discharge Order (10/07/17 12:40) Labs Laboratory Tests Test 10/07/17 08:20 10/07/17 08:40 White Blood Count 14.5 TH/MM3 Red Blood Count 4.12 MIL/MM3 Hemoglobin 12.5 GM/DL Hematocrit 36.2 % Mean Corpuscular Volume 87.8 FL Mean Corpuscular Hemoglobin 30.2 PG Mean Corpuscular Hemoglobin Concent 34.4 % Red Cell Distribution Width 12.6 % Platelet Count 278 TH/MM3 Mean Platelet Volume 7.2 FL Neutrophils (%) (Auto) 71.1 % Lymphocytes (%) (Auto) 17.2 % Monocytes (%) (Auto) 8.5 % Eosinophils (%) (Auto) 2.9 % Basophils (%) (Auto) 0.3 % Neutrophils # (Auto) 10.3 TH/MM3 Lymphocytes # (Auto) 2.5 TH/MM3 Monocytes # (Auto) 1.2 TH/MM3 Eosinophils # (Auto) 0.4 TH/MM3 Basophils # (Auto) 0.0 TH/MM3 CBC Comment DIFF FINAL Differential Comment Urine Color YELLOW Urine Turbidity CLOUDY Urine pH 7.0 Urine Specific [place] 1.015 Urine Protein TRACE mg/dL Urine Glucose (UA) TRACE mg/dL Urine Ketones NEG mg/dL Urine Occult Blood NEG Urine Nitrite NEG Urine Bilirubin NEG Urine Urobilinogen LESS THAN 2.0 MG/DL Urine Leukocyte Esterase NEG Urine RBC 1 /hpf Urine WBC 2 /hpf Urine Squamous Epithelial Cells 17 /hpf Urine Amorphous Sediment MANY Urine Bacteria OCC /hpf Urine Mucus MOD /lpf Microscopic Urinalysis Comment CULT NOT INDICATED Blood Urea Nitrogen 4 MG/DL Creatinine 0.43 MG/DL Random Glucose 107 MG/DL Total Protein 7.4 GM/DL Albumin 3.0 GM/DL Calcium Level 8.4 MG/DL Alkaline Phosphatase 75 U/L Aspartate Amino Transf (AST/SGOT) 8 U/L Alanine Aminotransferase (ALT/SGPT) 13 U/L Total Bilirubin 0.1 MG/DL Sodium Level 137 MEQ/L Potassium Level 3.6 MEQ/L Chloride Level 104 MEQ/L Carbon Dioxide Level 26.8 MEQ/L Anion Gap 6 MEQ/L Estimat Glomerular Filtration Rate 172 ML/MIN Clue Cells (Wet Prep) PRESENT Vaginal Trichomonas (Wet Prep) NONE SEEN Vaginal Yeast (Wet Prep) NONE SEEN Chlamydia trachomatis DNA (PCR) NOT DETECTED Neisseria gonorrhoeae DNA (PCR) NOT DETECTED MDM Medical Decision Making Medical Screen Exam Complete: Yes Emergency Medical Condition: Yes Medical Record Reviewed: Yes Interpretation(s) Last Impressions Abdomen/Pelvis/Transvag US 3/10/18 0809 Signed Impressions: Service Date/Time: Saturday, October 07, 2017 08:46 - CONCLUSION: 1. Persistent but decreased size of left ovarian cyst 2. Otherwise stable exam with no new abnormalities. 3. No acute process. Alejandro Caro MD Laboratory Tests Test 10/07/17 08:20 10/07/17 08:40 White Blood Count 14.5 TH/MM3 Red Blood Count 4.12 MIL/MM3 Hemoglobin 12.5 GM/DL Hematocrit 36.2 % Mean Corpuscular Volume 87.8 FL Mean Corpuscular Hemoglobin 30.2 PG Mean Corpuscular Hemoglobin Concent 34.4 % Red Cell Distribution Width 12.6 % Platelet Count 278 TH/MM3 Mean Platelet Volume 7.2 FL Neutrophils (%) (Auto) 71.1 % Lymphocytes (%) (Auto) 17.2 % Monocytes (%) (Auto) 8.5 % Eosinophils (%) (Auto) 2.9 % Basophils (%) (Auto) 0.3 % Neutrophils # (Auto) 10.3 TH/MM3 Lymphocytes # (Auto) 2.5 TH/MM3 Monocytes # (Auto) 1.2 TH/MM3 Eosinophils # (Auto) 0.4 TH/MM3 Basophils # (Auto) 0.0 TH/MM3 CBC Comment DIFF FINAL Differential Comment Urine Color YELLOW Urine Turbidity CLOUDY Urine pH 7.0 Urine Specific [place] 1.015 Urine Protein TRACE mg/dL Urine Glucose (UA) TRACE mg/dL Urine Ketones NEG mg/dL Urine Occult Blood NEG Urine Nitrite NEG Urine Bilirubin NEG Urine Urobilinogen LESS THAN 2.0 MG/DL Urine Leukocyte Esterase NEG Urine RBC 1 /hpf Urine WBC 2 /hpf Urine Squamous Epithelial Cells 17 /hpf Urine Amorphous Sediment MANY Urine Bacteria OCC /hpf Urine Mucus MOD /lpf Microscopic Urinalysis Comment CULT NOT INDICATED Blood Urea Nitrogen 4 MG/DL Creatinine 0.43 MG/DL Random Glucose 107 MG/DL Total Protein 7.4 GM/DL Albumin 3.0 GM/DL Calcium Level 8.4 MG/DL Alkaline Phosphatase 75 U/L Aspartate Amino Transf (AST/SGOT) 8 U/L Alanine Aminotransferase (ALT/SGPT) 13 U/L Total Bilirubin 0.1 MG/DL Sodium Level 137 MEQ/L Potassium Level 3.6 MEQ/L Chloride Level 104 MEQ/L Carbon Dioxide Level 26.8 MEQ/L Anion Gap 6 MEQ/L Estimat Glomerular Filtration Rate 172 ML/MIN Clue Cells (Wet Prep) PRESENT Vaginal Trichomonas (Wet Prep) NONE SEEN Vaginal Yeast (Wet Prep) NONE SEEN Chlamydia trachomatis DNA (PCR) NOT DETECTED Neisseria gonorrhoeae DNA (PCR) NOT DETECTED Differential Diagnosis Differential diagnosis includes retained products of conception, PID, cervicitis , UTI, ovarian cyst, , breast abscess, illicit drug use. Narrative Course IV was established, labs are drawn and sent, and the patient was placed on cardiac telemetry monitoring and continuous pulse oximetry monitoring. Pelvic exam was completed in the presence of a female nurse. Wet prep and gonorrhea/ chlamydia were sent to lab. Ultrasound of the pelvis was obtained. The abscess was incised and drained by the physician assistant media buyer, please refer to the procedure note. The patient received morphine, Tylenol, Zofran, and IV fluids. Ultrasound reveals small left ovarian cyst. Wet prep is positive for BV. The patient was redosed with pain medications. Patient will be discharged home on Flagyl, was administered Rocephin and Zithromax. She is advised to follow- up with a fashion patternmaker on an outpatient basis. Diagnosis Primary Impression: Bacterial vaginosis Patient Instructions: General Instructions Additional Instructions: Medications as directed. Follow up with her fashion patternmaker. Return if symptoms worsen or progress. Med/Other Pt SpecificInfo: Prescription(s) given Scripts Oxycodone (Oxycodone) 5 Mg Cap 5 MG PO Q8H Y for PAIN, #9 CAP 0 Refills Prov: Delmis Foote 10/07/17 Sulfamethoxazole-Trimethoprim (Bactrim DS) 800-160 Mg Tab 1 TAB PO BID for Infection, #20 TAB 0 Refills Prov: Delmis Foote 10/07/17 Metronidazole (Flagyl) 500 Mg Tab 500 MG PO BID for Infection for 7 Days, #14 TAB 0 Refills Prov: Delmis Foote 10/07/17 Condition: Stable Anibal Kilpatrick MD Oct 07, 2017 08:19
[2017-10-07 08:41] LABS: AUTOMATED NEUTROPHIL # 10.3 TH/MM3 (1.8-7.7); BASOPHIL % 0.3 % (0.0-2.0); EOSINOPHIL # 0.4 TH/MM3 (0-0.4); EOSINOPHIL % 2.9 % (0.0-4.0); HEMATOCRIT 36.2 % (35.0-46.0); HEMOGLOBIN 12.5 GM/DL (11.6-15.3); LYMPH % 17.2 % (9.0-44.0); LYMPHOCYTE # 2.5 TH/MM3 (1.0-4.8); MEAN CELL VOLUME 87.8 FL (80.0-100.0); MEAN CORPUSCULAR HEMOGLOBIN 30.2 PG (27.0-34.0); MEAN CORPUSCULAR HGB CONC 34.4 % (32.0-36.0); MEAN PLATELET VOLUME 7.2 FL (7.0-11.0); MONO % 8.5 % (0.0-8.0); MONOCYTE # 1.2 TH/MM3 (0-0.9); NEUT % 71.1 % (16.0-70.0); PLATELET COUNT 278 TH/MM3 (150-450); RED BLOOD COUNT 4.12 MIL/MM3 (4.00-5.30); RED CELL DISTRIBUTION WIDTH 12.6 % (11.6-17.2); WHITE BLOOD COUNT 14.5 TH/MM3 (4.0-11.0)
[2017-10-07 08:57] LABS: ALT (GPT) 13 U/L (10-53); AST (GOT) 8 U/L (15-37); BICARBONATE 26.8 MEQ/L (21.0-32.0); BLOOD UREA NITROGEN 4 MG/DL (7-18); CALCIUM 8.4 MG/DL (8.5-10.1); CHLORIDE 104 MEQ/L (98-107); CREATININE 0.43 MG/DL (0.50-1.00); GLOMERULAR FILTRATION RATE 172 ML/MIN (>89); GLUCOSE,RANDOM 107 MG/DL (74-106); SODIUM (NA) 137 MEQ/L (136-145)
[2017-10-07 09:00] LABS: ALKALINE PHOSPHATASE 75 U/L (45-117); TOTAL BILIRUBIN ADULT 0.1 MG/DL (0.2-1.0); TOTAL PROTEIN 7.4 GM/DL (6.4-8.2)
[2017-10-07 09:33] LABS: AMORPHOUS SEDIMENT, URINE MANY; BACTERIA, URINE OCC /hpf; BILIRUBIN, URINE NEG (NEG); BLOOD, URINE NEG (NEG); GLUCOSE,URINE TRACE mg/dL (NEG); KETONE, URINE NEG (NEG); MUCUS URINE MOD /lpf (OCC); NITRITE,URINE NEG (NEG); SQUAMOUS EPITHELIAL CELL URINE 17 /hpf (0-5); URINE COLOR YELLOW (YELLW/STRAW); URINE LEUKOCYTE ESTERASE NEG (NEG)
--- NOTE | 2017-10-07 09:41 | RADRPT ---
EXAM DATE/TIME: 10/07/2017 08:46 [facility] COMPARISON: US PELVIS,COMP,W DOPLR, TRANS VAG, August 25, 2017, 22:10. INDICATIONS : Pelvic pain. MEDICAL HISTORY : HPV. IV substance use. Cervical cancer. SURGICAL HISTORY : Dilationa nd curettage. Right wrist surgery. Cryotherapy. ENCOUNTER: Subsequent ACUITY: 4-6 days PAIN SCORE: 5/10 LOCATION: Bilateral pelvis MEASUREMENTS: UTERUS: 7.9 x 3.3 x 5.3 cm ENDOMETRIAL STRIPE: 5 mm RIGHT OVARY: 3.3 x 2.1 x 2.5 cm LEFT OVARY: 4.0 x 1.7 x 2.7 cm FINDINGS: UTERUS: The myometrium has homogeneous echotexture without mass. RIGHT OVARY: Ovary contains no mass or significant cystic lesion. LEFT OVARY: Ovary contains no mass. The previously identified bilobed cyst currently measures 3.3 x 1.7 x 1.9 cm and has decreased in size. MISCELLANEOUS: No free fluid. CONCLUSION: 1. Persistent but decreased size of left ovarian cyst 2. Otherwise stable exam with no new abnormalities. 3. No acute process. Alejandro Caro MD on October 07, 2017 at 9:34 Board Certified Radiologist. This report was verified electronically.
[2017-10-07] MEDS ORDERED: LIDOCAINE HCL 1% 50 ML VIAL IM ONE (10:00)
[2017-10-07] MEDS ORDERED: cefTRIAXone 250 MG VIAL IM ONE (10:00)
[2017-10-07] MEDS ORDERED: AZITHROMYCIN PWD FOR SUSP 1 GM PACKET PO ONE (10:00)
[2017-10-07] MEDS ORDERED: LIDOCAINE HCL 1% 30 ML VIAL IM ONE (10:30)
[2017-10-07] MEDS ORDERED: HYDROmorphone HCL PF 1 MG/ML VIAL IV PUSH ONE (12:00)
[2017-10-07] MEDS ORDERED: HYDROmorphone HCL PF 2 MG/ML VIAL IV PUSH ONE (12:15)
[2017-10-07] MEDS ORDERED: BACT800T5 PO (12:40)
[2017-10-07] MEDS ORDERED: METR-1 PO (12:40)
[2017-10-07] MEDS ORDERED: TRAM50TA PO (12:40)
--- NOTE | 2017-10-07 12:40 | PD ---
Physical Exam Date Seen by Provider: Oct 07, 2017 Time Seen by Provider: 12:36 Narrative For full history and physical examination please see previous providers note. Data Data Last Documented VS Vital Signs Date Time Temp Pulse Resp B/P (MAP) Pulse Ox O2 Delivery O2 Flow Rate FiO2 10/07/17 08:00 20 10/07/17 07:38 98.3 95 136/76 (96) 100 Orders Orders Complete Blood Count With Diff (10/07/17 08:09) Comprehensive Metabolic Panel (10/07/17 08:09) Gc And Chlamydia Pcr (10/07/17 08:09) Wet Prep Profile (10/07/17 08:09) Urinalysis - C+S If Indicated (10/07/17 08:09) Iv Access Insert/Monitor (10/07/17 08:09) Ecg Monitoring (10/07/17 08:09) Sodium Chlor 0.9% 1000 Ml Inj (Ns 1000 M (10/07/17 08:09) Ondansetron Inj (Zofran Inj) (10/07/17 08:15) Ed Urine Pregnancytest Poc (10/07/17 08:09) Morphine Inj (Morphine Inj) (10/07/17 08:15) Acetaminophen (Tylenol) (10/07/17 08:15) Wound Culture And Gram Stain (10/07/17 08:09) Us Pelvis Comp W Dop Transvag (10/07/17 08:09) Azithromycin Powd Pack (Zithromax Powd P (10/07/17 10:00) Ceftriaxone Inj (Rocephin Inj) (10/07/17 10:00) Lidocaine 1% Inj (Xylocaine 1% Inj) (10/07/17 10:30) Hydromorphone Pf Inj (Dilaudid Pf Inj) (10/07/17 12:15) Ed Discharge Order (10/07/17 12:40) Labs Laboratory Tests Test 10/07/17 08:20 10/07/17 08:40 White Blood Count 14.5 TH/MM3 Red Blood Count 4.12 MIL/MM3 Hemoglobin 12.5 GM/DL Hematocrit 36.2 % Mean Corpuscular Volume 87.8 FL Mean Corpuscular Hemoglobin 30.2 PG Mean Corpuscular Hemoglobin Concent 34.4 % Red Cell Distribution Width 12.6 % Platelet Count 278 TH/MM3 Mean Platelet Volume 7.2 FL Neutrophils (%) (Auto) 71.1 % Lymphocytes (%) (Auto) 17.2 % Monocytes (%) (Auto) 8.5 % Eosinophils (%) (Auto) 2.9 % Basophils (%) (Auto) 0.3 % Neutrophils # (Auto) 10.3 TH/MM3 Lymphocytes # (Auto) 2.5 TH/MM3 Monocytes # (Auto) 1.2 TH/MM3 Eosinophils # (Auto) 0.4 TH/MM3 Basophils # (Auto) 0.0 TH/MM3 CBC Comment DIFF FINAL Differential Comment Urine Color YELLOW Urine Turbidity CLOUDY Urine pH 7.0 Urine Specific [place] 1.015 Urine Protein TRACE mg/dL Urine Glucose (UA) TRACE mg/dL Urine Ketones NEG mg/dL Urine Occult Blood NEG Urine Nitrite NEG Urine Bilirubin NEG Urine Urobilinogen LESS THAN 2.0 MG/DL Urine Leukocyte Esterase NEG Urine RBC 1 /hpf Urine WBC 2 /hpf Urine Squamous Epithelial Cells 17 /hpf Urine Amorphous Sediment MANY Urine Bacteria OCC /hpf Urine Mucus MOD /lpf Microscopic Urinalysis Comment CULT NOT INDICATED Blood Urea Nitrogen 4 MG/DL Creatinine 0.43 MG/DL Random Glucose 107 MG/DL Total Protein 7.4 GM/DL Albumin 3.0 GM/DL Calcium Level 8.4 MG/DL Alkaline Phosphatase 75 U/L Aspartate Amino Transf (AST/SGOT) 8 U/L Alanine Aminotransferase (ALT/SGPT) 13 U/L Total Bilirubin 0.1 MG/DL Sodium Level 137 MEQ/L Potassium Level 3.6 MEQ/L Chloride Level 104 MEQ/L Carbon Dioxide Level 26.8 MEQ/L Anion Gap 6 MEQ/L Estimat Glomerular Filtration Rate 172 ML/MIN Clue Cells (Wet Prep) PRESENT Vaginal Trichomonas (Wet Prep) NONE SEEN Vaginal Yeast (Wet Prep) NONE SEEN Chlamydia trachomatis DNA (PCR) NOT DETECTED Neisseria gonorrhoeae DNA (PCR) NOT DETECTED [facility] Medical Record Reviewed: Yes Supervised Visit with LAURIE: Yes Interpretation(s) Laboratory Tests Test 10/07/17 08:20 10/07/17 08:40 White Blood Count 14.5 TH/MM3 Red Blood Count 4.12 MIL/MM3 Hemoglobin 12.5 GM/DL Hematocrit 36.2 % Mean Corpuscular Volume 87.8 FL Mean Corpuscular Hemoglobin 30.2 PG Mean Corpuscular Hemoglobin Concent 34.4 % Red Cell Distribution Width 12.6 % Platelet Count 278 TH/MM3 Mean Platelet Volume 7.2 FL Neutrophils (%) (Auto) 71.1 % Lymphocytes (%) (Auto) 17.2 % Monocytes (%) (Auto) 8.5 % Eosinophils (%) (Auto) 2.9 % Basophils (%) (Auto) 0.3 % Neutrophils # (Auto) 10.3 TH/MM3 Lymphocytes # (Auto) 2.5 TH/MM3 Monocytes # (Auto) 1.2 TH/MM3 Eosinophils # (Auto) 0.4 TH/MM3 Basophils # (Auto) 0.0 TH/MM3 CBC Comment DIFF FINAL Differential Comment Urine Color YELLOW Urine Turbidity CLOUDY Urine pH 7.0 Urine Specific [place] 1.015 Urine Protein TRACE mg/dL Urine Glucose (UA) TRACE mg/dL Urine Ketones NEG mg/dL Urine Occult Blood NEG Urine Nitrite NEG Urine Bilirubin NEG Urine Urobilinogen LESS THAN 2.0 MG/DL Urine Leukocyte Esterase NEG Urine RBC 1 /hpf Urine WBC 2 /hpf Urine Squamous Epithelial Cells 17 /hpf Urine Amorphous Sediment MANY Urine Bacteria OCC /hpf Urine Mucus MOD /lpf Microscopic Urinalysis Comment CULT NOT INDICATED Blood Urea Nitrogen 4 MG/DL Creatinine 0.43 MG/DL Random Glucose 107 MG/DL Total Protein 7.4 GM/DL Albumin 3.0 GM/DL Calcium Level 8.4 MG/DL Alkaline Phosphatase 75 U/L Aspartate Amino Transf (AST/SGOT) 8 U/L Alanine Aminotransferase (ALT/SGPT) 13 U/L Total Bilirubin 0.1 MG/DL Sodium Level 137 MEQ/L Potassium Level 3.6 MEQ/L Chloride Level 104 MEQ/L Carbon Dioxide Level 26.8 MEQ/L Anion Gap 6 MEQ/L Estimat Glomerular Filtration Rate 172 ML/MIN Clue Cells (Wet Prep) PRESENT Vaginal Trichomonas (Wet Prep) NONE SEEN Vaginal Yeast (Wet Prep) NONE SEEN Chlamydia trachomatis DNA (PCR) NOT DETECTED Neisseria gonorrhoeae DNA (PCR) NOT DETECTED Vital Signs Date Time Temp Pulse Resp B/P (MAP) Pulse Ox O2 Delivery O2 Flow Rate FiO2 10/07/17 08:00 20 10/07/17 07:38 98.3 95 16 136/76 (96) 100 Narrative Course For full history and physical examination please see previous providers note. GC and Chlamydia are negative, wet prep is positive for clue cells. Patient will be discharged home on Bactrim for the breast abscess as well as Flagyl for bacterial vaginosis. She was given a copy of her ultrasound report to bring to her [employer]. She was encouraged to complete full course of antibiotics as prescribed. She was encouraged to follow-up with her primary doctor. She was encouraged to return to emergency department for any new or worsening symptoms. Patient verbalized understanding of these instructions. Patient stable for discharge. Diagnosis Primary Impression: Breast abscess Additional Impressions: Encounter for incision and drainage procedure Bacterial vaginosis Referrals: Supervisor [employer] [facility] Primary Care Physician Patient Instructions: Abscess (GEN), Abscess Follow-up (ED), Abscess Incision and Drainage (DC), Bacterial Vaginosis (ED), General Instructions Additional Instruction: Follow-up with gynecology Follow-up with your primary doctor Complete full course of antibiotics as prescribed You may apply warm compress to affected area Do not drive or operate machinery while taking narcotic pain medication Return to emergency department for any new or worsening symptoms. Med/Other Pt SpecificInfo: Prescription(s) given Scripts Oxycodone (Oxycodone) 5 Mg Cap 5 MG PO Q8H Y for PAIN, #9 CAP 0 Refills Prov: Delmis Foote 10/07/17 Sulfamethoxazole-Trimethoprim (Bactrim DS) 800-160 Mg Tab 1 TAB PO BID for Infection, #20 TAB 0 Refills Prov: Delmis Foote 10/07/17 Metronidazole (Flagyl) 500 Mg Tab 500 MG PO BID for Infection for 7 Days, #14 TAB 0 Refills Prov: Delmis Foote 10/07/17 Disposition: 01 DISCHARGE HOME Condition: Stable Delmis Foote Oct 07, 2017 12:40
[2017-10-07] MEDS ORDERED: OXYC1CAP PO (12:45)
--- NOTE | 2017-10-07 13:01 | PD ---
Physical Exam Date Seen by Provider: Oct 07, 2017 Time Seen by Provider: 10:45 Narrative 31-year-old female seen by Dr. Kilpatrick with history of IV drug abuse, and abscess to the left medial upper breast. I was asked to drain the abscess with an I&D by Dr. Kilpatrick. Please see my procedure note. Data Data Last Documented VS Vital Signs Date Time Temp Pulse Resp B/P (MAP) Pulse Ox O2 Delivery O2 Flow Rate FiO2 10/07/17 08:00 20 10/07/17 07:38 98.3 95 136/76 (96) 100 Orders Orders Complete Blood Count With Diff (10/07/17 08:09) Comprehensive Metabolic Panel (10/07/17 08:09) Gc And Chlamydia Pcr (10/07/17 08:09) Wet Prep Profile (10/07/17 08:09) Urinalysis - C+S If Indicated (10/07/17 08:09) Iv Access Insert/Monitor (10/07/17 08:09) Ecg Monitoring (10/07/17 08:09) Sodium Chlor 0.9% 1000 Ml Inj (Ns 1000 M (10/07/17 08:09) Ondansetron Inj (Zofran Inj) (10/07/17 08:15) Ed Urine Pregnancytest Poc (10/07/17 08:09) Morphine Inj (Morphine Inj) (10/07/17 08:15) Acetaminophen (Tylenol) (10/07/17 08:15) Wound Culture And Gram Stain (10/07/17 08:09) Us Pelvis Comp W Dop Transvag (10/07/17 08:09) Azithromycin Powd Pack (Zithromax Powd P (10/07/17 10:00) Ceftriaxone Inj (Rocephin Inj) (10/07/17 10:00) Lidocaine 1% Inj (Xylocaine 1% Inj) (10/07/17 10:30) Hydromorphone Pf Inj (Dilaudid Pf Inj) (10/07/17 12:15) Ed Discharge Order (10/07/17 12:40) Labs Laboratory Tests Test 10/07/17 08:20 3 08:40 White Blood Count 14.5 TH/MM3 Red Blood Count 4.12 MIL/MM3 Hemoglobin 12.5 GM/DL Hematocrit 36.2 % Mean Corpuscular Volume 87.8 FL Mean Corpuscular Hemoglobin 30.2 PG Mean Corpuscular Hemoglobin Concent 34.4 % Red Cell Distribution Width 12.6 % Platelet Count 278 TH/MM3 Mean Platelet Volume 7.2 FL Neutrophils (%) (Auto) 71.1 % Lymphocytes (%) (Auto) 17.2 % Monocytes (%) (Auto) 8.5 % Eosinophils (%) (Auto) 2.9 % Basophils (%) (Auto) 0.3 % Neutrophils # (Auto) 10.3 TH/MM3 Lymphocytes # (Auto) 2.5 TH/MM3 Monocytes # (Auto) 1.2 TH/MM3 Eosinophils # (Auto) 0.4 TH/MM3 Basophils # (Auto) 0.0 TH/MM3 CBC Comment DIFF FINAL Differential Comment Urine Color YELLOW Urine Turbidity CLOUDY Urine pH 7.0 Urine Specific [place] 1.015 Urine Protein TRACE mg/dL Urine Glucose (UA) TRACE mg/dL Urine Ketones NEG mg/dL Urine Occult Blood NEG Urine Nitrite NEG Urine Bilirubin NEG Urine Urobilinogen LESS THAN 2.0 MG/DL Urine Leukocyte Esterase NEG Urine RBC 1 /hpf Urine WBC 2 /hpf Urine Squamous Epithelial Cells 17 /hpf Urine Amorphous Sediment MANY Urine Bacteria OCC /hpf Urine Mucus MOD /lpf Microscopic Urinalysis Comment CULT NOT INDICATED Blood Urea Nitrogen 4 MG/DL Creatinine 0.43 MG/DL Random Glucose 107 MG/DL Total Protein 7.4 GM/DL Albumin 3.0 GM/DL Calcium Level 8.4 MG/DL Alkaline Phosphatase 75 U/L Aspartate Amino Transf (AST/SGOT) 8 U/L Alanine Aminotransferase (ALT/SGPT) 13 U/L Total Bilirubin 0.1 MG/DL Sodium Level 137 MEQ/L Potassium Level 3.6 MEQ/L Chloride Level 104 MEQ/L Carbon Dioxide Level 26.8 MEQ/L Anion Gap 6 MEQ/L Estimat Glomerular Filtration Rate 172 ML/MIN Clue Cells (Wet Prep) PRESENT Vaginal Trichomonas (Wet Prep) NONE SEEN Vaginal Yeast (Wet Prep) NONE SEEN Chlamydia trachomatis DNA (PCR) NOT DETECTED Neisseria gonorrhoeae DNA (PCR) NOT DETECTED [facility] Medical Record Reviewed: Yes Supervised Visit with LAURIE: Yes Procedures Procedure Narrative After the risks and benefits were discussed the following procedure was performed with patient significant other in room as cashier associate: INCISION AND DRAINAGE OF ABSCESS: The area was prepped and was sterilely draped. A subcutaneous wheal of 2 % Xylocaine with epi with a total number 3 mL was used to anesthetize the area. The area was properly anesthetized. A number 11 scalpel was used to make a 1-cm incision across the area of the abscess. Cultures were obtained. The abscess was drained of moderate amount of foul ordered purulent drainage. Half inch iodoform packing was placed in the wound. Sterile dressing applied. Patient advised to have packing removed in two days. Diagnosis Primary Impression: Breast abscess Additional Impressions: Bacterial vaginosis Encounter for incision and drainage procedure Referrals: Environmental Protection Officer [facility] Primary Care Physician Patient Instructions: General Instructions, Sulfamethoxazole/Trimethoprim (By mouth), Metronidazole (By mouth), Oxycodone, Rapid Release (By mouth), Bacterial Vaginosis (ED), Abscess (GEN), Abscess Follow-up (ED), Abscess Incision and Drainage (DC) Departure Forms: Tests/Procedures Additional Instruction: Follow-up with gynecology Follow-up with your primary doctor Complete full course of antibiotics as prescribed You may apply warm compress to affected area Do not drive or operate machinery while taking narcotic pain medication Return to emergency department for any new or worsening symptoms. Scripts Oxycodone (Oxycodone) 5 Mg Cap 5 MG PO Q8H Y for PAIN, #9 CAP 0 Refills Prov: Delmis Foote 10/07/17 Sulfamethoxazole-Trimethoprim (Bactrim DS) 800-160 Mg Tab 1 TAB PO BID for Infection, #20 TAB 0 Refills Prov: Delmis Foote 10/07/17 Metronidazole (Flagyl) 500 Mg Tab 500 MG PO BID for Infection for 7 Days, #14 TAB 0 Refills Prov: Delmis Foote 10/07/17 Disposition: 01 DISCHARGE HOME Condition: Stable Codey Savage Oct 07, 2017 13:01
== END 2017-10-07 13:10 | disposition home or self-care (01) ==
LOC: NEPE 07:13
DX: N61.1 Abscess of the breast and nipple (principal); N76.0 Acute vaginitis; B96.89 Other specified bacterial agents as the cause of diseases classified elsewhere; N83.202 Unspecified ovarian cyst, left side; F19.10 Other psychoactive substance abuse, uncomplicated; F41.9 Anxiety disorder, unspecified; F17.200 Nicotine dependence, unspecified, uncomplicated; Z85.41 Personal history of malignant neoplasm of cervix uteri; Z79.899 Other long term (current) drug therapy
CPT/HCPCS: 19020; 76830; 76856; 80053; 81001; 84703; 85025; 87210; 87491; 87591; 93975; 96361; 96372; 96374; 96375; 99284; J0696; J1170; J2270; J2405; J7030

== ENCOUNTER 2017-10-10 03:11 | Emergency (ER) | payer MEDICAID ==
[~2017-10-10] VITALS: Ht 162.6 cm; Wt 82.0 kg
[~2017-10-10 03:11] MED LIST changes: +ADDE30TA PO; +BACT800T5 PO; -CLIN300C5 PO; +GABA800T PO; +METR-1 PO; -OXYC-392 PO; +OXYC1CAP PO
[2017-10-10 03:25] VITALS: BP 157/55; PULSE 104; RESP 18; TEMP 98.3; O2SAT 98
[2017-10-10 03:57] LABS: AUTOMATED NEUTROPHIL # 7.5 TH/MM3 (1.8-7.7); BASOPHIL # 0.2 TH/MM3 (0-0.2); BASOPHIL % 1.1 % (0.0-2.0); EOSINOPHIL # 0.4 TH/MM3 (0-0.4); EOSINOPHIL % 2.7 % (0.0-4.0); HEMOGLOBIN 13.2 GM/DL (11.6-15.3); LYMPH % 35.8 % (9.0-44.0); LYMPHOCYTE # 4.9 TH/MM3 (1.0-4.8); MEAN CELL VOLUME 88.3 FL (80.0-100.0); MEAN CORPUSCULAR HEMOGLOBIN 31.6 PG (27.0-34.0); MEAN CORPUSCULAR HGB CONC 35.8 % (32.0-36.0); MEAN PLATELET VOLUME 6.8 FL (7.0-11.0); MONOCYTE # 0.7 TH/MM3 (0-0.9); NEUT % 55.4 % (16.0-70.0); PLATELET COUNT 388 TH/MM3 (150-450); RED BLOOD COUNT 4.18 MIL/MM3 (4.00-5.30); RED CELL DISTRIBUTION WIDTH 12.6 % (11.6-17.2); WHITE BLOOD COUNT 13.6 TH/MM3 (4.0-11.0)
[2017-10-10 04:18] LABS: ALBUMIN 3.2 GM/DL (3.4-5.0); AST (GOT) 8 U/L (15-37); BICARBONATE 27.4 MEQ/L (21.0-32.0); BLOOD UREA NITROGEN 6 MG/DL (7-18); CALCIUM 8.8 MG/DL (8.5-10.1); CHLORIDE 104 MEQ/L (98-107); CREATININE 0.62 MG/DL (0.50-1.00); GLOMERULAR FILTRATION RATE 113 ML/MIN (>89); GLUCOSE,RANDOM 119 MG/DL (74-106); SODIUM (NA) 139 MEQ/L (136-145)
[2017-10-10 04:21] LABS: ALKALINE PHOSPHATASE 77 U/L (45-117); ALT (GPT) 13 U/L (10-53); TOTAL BILIRUBIN ADULT 0.2 MG/DL (0.2-1.0); TOTAL PROTEIN 7.8 GM/DL (6.4-8.2)
[2017-10-10 05:36] VITALS: BP 138/80; PULSE 84; RESP 17; TEMP 97.8; O2SAT 100
[2017-10-10 09:46] LABS: BILIRUBIN, URINE NEG (NEG); BLOOD, URINE TRACE (NEG); GLUCOSE,URINE NEG (NEG); KETONE, URINE NEG (NEG); MUCUS URINE MANY /lpf (OCC); NITRITE,URINE NEG (NEG); SQUAMOUS EPITHELIAL CELL URINE 8 /hpf (0-5); URINE COLOR YELLOW (YELLW/STRAW); URINE LEUKOCYTE ESTERASE NEG (NEG)
--- NOTE | 2017-10-10 10:47 | PD ---
HPI Chief Complaint: Abdominal Pain Time Seen by Provider: 09:12 Travel History International Travel<30 days: No Contact w/Intl Traveler<30days: No Traveled to known affect area: No History of Present Illness HPI This is a 31-year-old female here with abdominal pain for the last 2 weeks. She reports the pain is constant but also waxes and wanes. Pain is localized to the lower abdomen. She is currently being treated for bacterial vaginosis and right breast abscess. She denies vaginal bleeding, vaginal discharge, dysuria, flank pain. She reports she is taking Bactrim and Flagyl. She denies fever or chills. She reports nausea without vomiting. Symptoms severity is moderate. No aggravating or alleviating factors. PFSH Past Medical History Hx Anticoagulant Therapy: No Asthma: No Autoimmune Disease: No Blood Disorders: No Anxiety: Yes Depression: No Heart Rhythm Problems: No Cancer: Yes (cervical cancer diagnosed in jul 2017) Cardiovascular Problems: No High Cholesterol: No Chemotherapy: No Chest Pain: No Congestive Heart Failure: No COPD: No Cerebrovascular Accident: No Diabetes: No Diminished Hearing: No Endocrine: No Gastrointestinal Disorders: No Genitourinary: No Hypertension: No Immune Disorder: No Implanted Vascular Access Dvce: Yes Musculoskeletal: No Neurologic: No Psychiatric: No Reproductive: No Respiratory: No Immunizations Current: No Radiation Therapy: No Sleep Apnea: No Thyroid Disease: No Tetanus Vaccination: Unknown Influenza Vaccination: Yes ?: Not : 10 Para: 2 Miscarriage: 8 : 0 Dilation and Curettage (D&C): Yes Past Surgical History Abdominal Surgery: No Body Medical Devices: metal pins in right wrist Cardiac Surgery: No Ear Surgery: No Eye Surgery: No Genitourinary Surgery: No Gynecologic Surgery: Yes (D&C 2002, CRYO THERAPY FOR HPV) Hysterectomy: No Neurologic Surgery: No Oral Surgery: No Pacemaker: No Thoracic Surgery: No Other Surgery: Yes (r/ wrist surgery, d&c x 2) Social History Alcohol Use: Yes Tobacco Use: Yes (1/2 PACK A DAY ) Substance Use: Yes (SHOOTS UP DILLDID IN LEFT BREST COUPLE OF WEEKS AGO ) Allergies-Medications (Allergen,Severity, Reaction): Coded Allergies: butorphanol (Unverified Adverse Reaction, Severe, 10/10/17) ketorolac (Unverified Adverse Reaction, Severe, SOB, 10/10/17) ibuprofen (Unverified Adverse Reaction, Mild, UPSET STOMACH, 10/10/17) Reported Meds & Prescriptions Reported Meds & Active Scripts Active Oxycodone (Oxycodone HCl) 5 Mg Cap 5 Mg PO Q8H PRN Bactrim DS (Sulfamethoxazole-Trimethoprim) 800-160 Mg Tab 1 Tab PO BID Flagyl (Metronidazole) 500 Mg Tab 500 Mg PO BID 7 Days Reported Gabapentin 800 Mg Tab 800 Mg PO TID Adderall (Amphetamine-Dextroamphetamine) 30 Mg Tab 30 Mg PO DAILY Avoid late evening doses. Space doses at least 4 to 6 hours if more than once/day dosing. Review of Systems Except as stated in HPI: all other systems reviewed are Neg General / Constitutional: No: Fever Eyes: No: Visual changes HENT: No: Headaches Cardiovascular: No: Chest Pain or Discomfort Respiratory: No: Shortness of Breath Gastrointestinal: Positive: Nausea, Abdominal Pain Genitourinary: No: Dysuria Musculoskeletal: No: Pain Skin: No Rash Neurologic: No: Weakness Physical Exam Narrative GENERAL: Alert female sleeping on the stretcher. When awoken she begins to hold her stomach and cry SKIN: Warm and dry. No rash HEAD: Normocephalic. EYES: No scleral icterus. No injection or drainage. NECK: Supple CARDIOVASCULAR: Regular rate and rhythm. No murmur appreciated RESPIRATORY: Breath sounds equal bilaterally. No accessory muscle use. GASTROINTESTINAL: Abdomen soft, nondistended, + TTP left and right lower quadrants. : External genital warts. Cervical os closed. Small amount of clear frothy discharge. No CMT. No adnexal mass or tenderness. MUSCULOSKELETAL: No cyanosis, or edema. BACK: Nontender without obvious deformity. No CVA tenderness. Data Data Last Documented VS Vital Signs Date Time Temp Pulse Resp B/P (MAP) Pulse Ox O2 Delivery O2 Flow Rate FiO2 10/10/17 05:36 97.8 84 17 138/80 (99) 100 Room Air Orders Orders Complete Blood Count With Diff (10/10/17 03:32) Comprehensive Metabolic Panel (10/10/17 03:32) Urinalysis - C+S If Indicated (10/10/17 03:32) Ed Urine Pregnancytest Poc (10/10/17 03:32) Iv Access Insert/Monitor (10/10/17 03:32) Oxygen Administration (10/10/17 03:32) Oximetry (10/10/17 03:32) Lipase (10/10/17 03:32) Beta Hcg (Quant/Titer) (10/10/17 09:32) Ct Abd/Pel W Iv Contrast(Rout) (10/10/17 10:13) Labs Laboratory Tests Test 10/10/17 03:40 10/10/17 09:20 White Blood Count 13.6 TH/MM3 Red Blood Count 4.18 MIL/MM3 Hemoglobin 13.2 GM/DL Hematocrit 37.0 % Mean Corpuscular Volume 88.3 FL Mean Corpuscular Hemoglobin 31.6 PG Mean Corpuscular Hemoglobin Concent 35.8 % Red Cell Distribution Width 12.6 % Platelet Count 388 TH/MM3 Mean Platelet Volume 6.8 FL Neutrophils (%) (Auto) 55.4 % Lymphocytes (%) (Auto) 35.8 % Monocytes (%) (Auto) 5.0 % Eosinophils (%) (Auto) 2.7 % Basophils (%) (Auto) 1.1 % Neutrophils # (Auto) 7.5 TH/MM3 Lymphocytes # (Auto) 4.9 TH/MM3 Monocytes # (Auto) 0.7 TH/MM3 Eosinophils # (Auto) 0.4 TH/MM3 Basophils # (Auto) 0.2 TH/MM3 CBC Comment DIFF FINAL Differential Comment Blood Urea Nitrogen 6 MG/DL Creatinine 0.62 MG/DL Random Glucose 119 MG/DL Total Protein 7.8 GM/DL Albumin 3.2 GM/DL Calcium Level 8.8 MG/DL Alkaline Phosphatase 77 U/L Aspartate Amino Transf (AST/SGOT) 8 U/L Alanine Aminotransferase (ALT/SGPT) 13 U/L Total Bilirubin 0.2 MG/DL Sodium Level 139 MEQ/L Potassium Level 3.7 MEQ/L Chloride Level 104 MEQ/L Carbon Dioxide Level 27.4 MEQ/L Anion Gap 8 MEQ/L Estimat Glomerular Filtration Rate 113 ML/MIN Lipase 90 U/L Human Chorionic Gonadotropin, Quant 1 MIU/ML Urine Color YELLOW Urine Turbidity HAZY Urine pH 6.0 Urine Specific [place] 1.016 Urine Protein TRACE mg/dL Urine Glucose (UA) NEG mg/dL Urine Ketones NEG mg/dL Urine Occult Blood TRACE Urine Nitrite NEG Urine Bilirubin NEG Urine Urobilinogen LESS THAN 2.0 MG/DL Urine Leukocyte Esterase NEG Urine RBC 7 /hpf Urine WBC 2 /hpf Urine Squamous Epithelial Cells 8 /hpf Urine Mucus MANY /lpf Microscopic Urinalysis Comment CULT NOT INDICATED MDM Medical Decision Making Medical Screen Exam Complete: Yes Emergency Medical Condition: Yes Interpretation(s) Beta hC CBC: Mild leukocytosis WBC 13.6, this is trending down from prior CMP: No acute abnormality, of note LFTs have since normalized from prior Lipase: 90 UA: Non-suggestive of infection Differential Diagnosis Appendicitis, UTI, cystitis, PID, TOA, ovarian cysts, BV, Trichomonas, colitis, diverticulitis, ectopic Narrative Course This is a 31-year-old female here for evaluation of abdominal pain. She is nontoxic appearing. She appears comfortable when staff is not in the room, immediately upon entering the room she begins crying and holding her stomach. Her lab work is reassuring. She has left and right lower quadrant tenderness. CT of the abdomen and pelvis was ordered. Patient informed nursing staff that she wanted to leave. AMA: The risks of leaving against medical advice without further evaluation treatment were discussed with the patient. These risks include cardiac dysfunction, cardiac dysrhythmia, possible heart attack, possible stroke or . The patient indicated understanding of these risks and appeared to have the capacity to make this decision. She was made aware that she could return at any time. She was encouraged to continue her current antibiotics Diagnosis Primary Impression: Left against medical advice Disposition: 07 AGAINST MEDICAL ADVICE Kala Lama Oct 10, 2017 10:47
== END 2017-10-10 10:51 | disposition left against medical advice (07) ==
LOC: NED 03:11 → NEPK 03:11 → NED 08:00 → NEPK 10:51
DX: R10.30 Lower abdominal pain, unspecified (principal); F17.200 Nicotine dependence, unspecified, uncomplicated
CPT/HCPCS: 80053; 81001; 83690; 84702; 84703; 85025; 99283

== ENCOUNTER 2017-10-22 23:36 | Emergency (ER) | payer MEDICAID ==
[2017-10-22] MEDS ORDERED: IOHEXOL 350 MG/ML 10 ML VIAL (for RAD DIAG) IVCONTRAST ONE (23:37)
[2017-10-22 23:48] VITALS: BP 114/69; PULSE 97; RESP 18; TEMP 98.3; O2SAT 97
[2017-10-23] MEDS ORDERED: DILA8TAB4 PO (00:21)
[2017-10-23] MEDS ORDERED: ONDANSETRON HCL 4 MG/2 ML VIAL IV PUSH ONE (00:45)
[2017-10-23 00:53] LABS: AUTOMATED NEUTROPHIL # 3.1 TH/MM3 (1.8-7.7); BASOPHIL # 0.1 TH/MM3 (0-0.2); BASOPHIL % 1.1 % (0.0-2.0); EOSINOPHIL # 0.4 TH/MM3 (0-0.4); EOSINOPHIL % 5.6 % (0.0-4.0); HEMOGLOBIN 13.1 GM/DL (11.6-15.3); LYMPH % 45.6 % (9.0-44.0); LYMPHOCYTE # 3.5 TH/MM3 (1.0-4.8); MEAN CELL VOLUME 89.4 FL (80.0-100.0); MEAN CORPUSCULAR HEMOGLOBIN 30.1 PG (27.0-34.0); MEAN CORPUSCULAR HGB CONC 33.7 % (32.0-36.0); MEAN PLATELET VOLUME 7.4 FL (7.0-11.0); MONO % 8.1 % (0.0-8.0); MONOCYTE # 0.6 TH/MM3 (0-0.9); NEUT % 39.6 % (16.0-70.0); PLATELET COUNT 291 TH/MM3 (150-450); RED BLOOD COUNT 4.36 MIL/MM3 (4.00-5.30); RED CELL DISTRIBUTION WIDTH 13.4 % (11.6-17.2); WHITE BLOOD COUNT 7.7 TH/MM3 (4.0-11.0)
[2017-10-23 01:05] LABS: BACTERIA, URINE RARE /hpf; BLOOD, URINE NEG (NEG); GLUCOSE,URINE NEG (NEG); HYALINE CAST, URINE INNUM /lpf (RARE); KETONE, URINE TRACE mg/dL (NEG); MUCUS URINE MANY /lpf (OCC); NITRITE,URINE NEG (NEG); SQUAMOUS EPITHELIAL CELL URINE 12 /hpf (0-5); URINE COLOR YELLOW (YELLW/STRAW); URINE LEUKOCYTE ESTERASE SMALL (NEG)
[2017-10-23 01:06] LABS: BILIRUBIN, URINE NEG (NEG)
[2017-10-23 01:18] LABS: BICARBONATE 30.1 MEQ/L (21.0-32.0); BLOOD UREA NITROGEN 8 MG/DL (7-18); CALCIUM 8.7 MG/DL (8.5-10.1); CHLORIDE 105 MEQ/L (98-107); CREATININE 0.63 MG/DL (0.50-1.00); GLOMERULAR FILTRATION RATE 111 ML/MIN (>89); GLUCOSE,RANDOM 94 MG/DL (74-106); SODIUM (NA) 141 MEQ/L (136-145)
--- NOTE | 2017-10-23 02:43 | PD ---
HPI Chief Complaint: Abdominal Pain Time Seen by Provider: 00:12 Travel History International Travel<30 days: No Contact w/Intl Traveler<30days: No Traveled to known affect area: No History of Present Illness HPI This is a 31-year-old female with a history of reported cervical cancer, presents today with complaints of right sided lateral abdominal pain. Patient states the pain is sharp and dull. There is no reported vaginal discharge or dysuria. The patient denies any history of intra-abdominal pathology. Patient states that she is scheduled to see a [employer] physician for her cervical cancer. She is working with her primary care physician for this. Is no reported fevers , chills. There is no reported diarrhea. PFSH Past Medical History Hx Anticoagulant Therapy: No Asthma: No Autoimmune Disease: No Blood Disorders: No Anxiety: Yes Depression: No Heart Rhythm Problems: No Cancer: Yes (cervical cancer diagnosed in jul 2017) Cardiovascular Problems: No High Cholesterol: No Chemotherapy: No Chest Pain: No Congestive Heart Failure: No COPD: No Cerebrovascular Accident: No Diabetes: No Diminished Hearing: No Endocrine: No Gastrointestinal Disorders: No Genitourinary: No Hypertension: No Immune Disorder: No Implanted Vascular Access Dvce: Yes Musculoskeletal: No Neurologic: No Psychiatric: No Reproductive: No Respiratory: No Immunizations Current: Yes Radiation Therapy: No Sleep Apnea: No Thyroid Disease: No ?: Not : 10 Para: 2 Miscarriage: 8 : 0 Dilation and Curettage (D&C): Yes Past Surgical History Abdominal Surgery: No Body Medical Devices: metal pins in right wrist Cardiac Surgery: No Ear Surgery: No Eye Surgery: No Genitourinary Surgery: No Gynecologic Surgery: Yes (D&C 2002, CRYO THERAPY FOR HPV) Hysterectomy: No Neurologic Surgery: No Oral Surgery: No Pacemaker: No Thoracic Surgery: No Other Surgery: Yes (r/ wrist surgery, d&c x 2) Social History Alcohol Use: No (DENIES) Tobacco Use: Yes (1/2 PACK A DAY ) Substance Use: Yes (IV DILUADID - 10/19-10/20/17) Allergies-Medications (Allergen,Severity, Reaction): Coded Allergies: butorphanol (Unverified Adverse Reaction, Severe, 10/10/17) ketorolac (Unverified Adverse Reaction, Severe, SOB, 10/10/17) ibuprofen (Unverified Adverse Reaction, Mild, UPSET STOMACH, 3/13/18) Reported Meds & Prescriptions Reported Meds & Active Scripts Active Oxycodone (Oxycodone HCl) 5 Mg Cap 5 Mg PO Q8H PRN 2 Days Ciprofloxacin (Ciprofloxacin HCl) 500 Mg Tab 500 Mg PO BID 7 Days Reported Dilaudid (Hydromorphone HCl) 8 Mg Tab 8 Mg PO Q6H PRN Gabapentin 800 Mg Tab 800 Mg PO TID Adderall (Amphetamine-Dextroamphetamine) 30 Mg Tab 30 Mg PO DAILY Avoid late evening doses. Space doses at least 4 to 6 hours if more than once/day dosing. Review of Systems Except as stated in HPI: all other systems reviewed are Neg General / Constitutional: No: Fever, Chills Cardiovascular: No: Chest Pain or Discomfort, Palpitations Respiratory: No: Cough, Shortness of Breath Gastrointestinal: Positive: Nausea, Abdominal Pain, No: Vomiting, Diarrhea Genitourinary: No: Dysuria, Pelvic Pain, Discharge, Vaginal Bleeding Skin: No Rash, No Itching, No Lesions Neurologic: No: Weakness, Dizziness, Headache Physical Exam Narrative GENERAL: Well-nourished, well-developed patient, in no acute respiratory distress. SKIN: Focused skin assessment warm/dry. HEAD: Normocephalic/atraumatic. EYES: No scleral icterus. No injection or drainage. NECK: Supple, trachea midline. No JVD or lymphadenopathy. CARDIOVASCULAR: Regular rate and rhythm without murmurs, gallops, or rubs. RESPIRATORY: Breath sounds equal bilaterally. No accessory muscle use. GASTROINTESTINAL: Abdomen soft, nondistended. Patient has right lower quadrant and middle abdominal pain. There is no rebound there is mild voluntary guarding. MUSCULOSKELETAL: No cyanosis, or edema. BACK: Nontender without obvious deformity. No CVA tenderness. NEUROLOGICAL: Awake and alert. Cranial nerves II through XII intact. Motor grossly within normal limits. Five out of 5 muscle strength in all muscle groups. Normal speech. Data Data Last Documented VS Vital Signs Date Time Temp Pulse Resp B/P (MAP) Pulse Ox O2 Delivery O2 Flow Rate FiO2 10/23/17 06:35 68 14 98/50 (66) 96 Room Air 10/22/17 23:48 98.3 Orders Orders Complete Blood Count With Diff (10/23/17 00:29) Basic Metabolic Panel (Bmp) (10/23/17 00:29) Urinalysis - C+S If Indicated (10/23/17 00:29) Beta Hcg (Quant/Titer) (10/23/17 00:29) Iv Access Insert/Monitor (10/23/17 00:29) Ecg Monitoring (10/23/17 00:29) Oximetry (10/23/17 00:29) Ed Urine Pregnancytest Poc (10/23/17 00:29) Ondansetron Inj (Zofran Inj) (10/23/17 00:45) Urine Culture (10/23/17 00:48) Ct Abd/Pel W Iv Contrast(Rout) (10/23/17 02:00) Iohexol 350 Inj (Omnipaque 350 Inj) (10/22/17 23:37) Ceftriaxone Inj (Rocephin Inj) (10/23/17 03:45) Morphine Inj (Morphine Inj) (10/23/17 04:00) Labs Laboratory Tests Test 10/23/17 00:48 White Blood Count 7.7 TH/MM3 Red Blood Count 4.36 MIL/MM3 Hemoglobin 13.1 GM/DL Hematocrit 39.0 % Mean Corpuscular Volume 89.4 FL Mean Corpuscular Hemoglobin 30.1 PG Mean Corpuscular Hemoglobin Concent 33.7 % Red Cell Distribution Width 13.4 % Platelet Count 291 TH/MM3 Mean Platelet Volume 7.4 FL Neutrophils (%) (Auto) 39.6 % Lymphocytes (%) (Auto) 45.6 % Monocytes (%) (Auto) 8.1 % Eosinophils (%) (Auto) 5.6 % Basophils (%) (Auto) 1.1 % Neutrophils # (Auto) 3.1 TH/MM3 Lymphocytes # (Auto) 3.5 TH/MM3 Monocytes # (Auto) 0.6 TH/MM3 Eosinophils # (Auto) 0.4 TH/MM3 Basophils # (Auto) 0.1 TH/MM3 CBC Comment DIFF FINAL Differential Comment Urine Color YELLOW Urine Turbidity HAZY Urine pH 6.0 Urine Specific [place] 1.030 Urine Protein 30 mg/dL Urine Glucose (UA) NEG mg/dL Urine Ketones TRACE mg/dL Urine Occult Blood NEG Urine Nitrite NEG Urine Bilirubin NEG Urine Urobilinogen 4.0 MG/DL Urine Leukocyte Esterase SMALL Urine RBC 1 /hpf Urine WBC 16 /hpf Urine Squamous Epithelial Cells 12 /hpf Urine Bacteria RARE /hpf Urine Hyaline Casts INNUM /lpf Urine Mucus MANY /lpf Microscopic Urinalysis Comment CULTURE INDICATED Blood Urea Nitrogen 8 MG/DL Creatinine 0.63 MG/DL Random Glucose 94 MG/DL Calcium Level 8.7 MG/DL Sodium Level 141 MEQ/L Potassium Level 3.6 MEQ/L Chloride Level 105 MEQ/L Carbon Dioxide Level 30.1 MEQ/L Anion Gap 6 MEQ/L Estimat Glomerular Filtration Rate 111 ML/MIN Human Chorionic Gonadotropin, Quant LESS THAN 1 MIU/ML MDM Medical Decision Making Medical Screen Exam Complete: Yes Emergency Medical Condition: Yes Differential Diagnosis Pyelonephritis versus intra-abdominal process versus endometriosis Narrative Course 31-year-old female with history of chronic abdominal pain, reported cervical cancer, presents today with complaints of abdominal pain the right lateral abdominal wall. Patient has cystitis. There is no evidence of acute intra- abdominal process on CT scan. White count was within normal limits. The patient will be discharged told to follow-up with her primary care physician. She will be given a prescription for ciprofloxacin 500 mg twice daily 7 days. She also given a prescription for 6 tablets of oxycodone 5 mg. He will be no more refills for narcotic pain medications here in the emergency department. Diagnosis Primary Impression: Abdominal pain Additional Impressions: Cystitis Reported cervical cancer by history. Additional Instructions: Follow-up with primary care physician. Call today for an appointment. Med/Other Pt SpecificInfo: Prescription(s) given Scripts Oxycodone (Oxycodone) 5 Mg Cap 5 MG PO Q8H Y for PAIN for 2 Days, #6 CAP 0 Refills Prov: Sancho Sanchez MD 10/23/17 Ciprofloxacin (Ciprofloxacin) 500 Mg Tab 500 MG PO BID for Infection for 7 Days, #14 TAB 0 Refills Prov: Sancho Sanchez MD 10/23/17 Disposition: DISCHARGE HOME Condition: Stable Sancho Sanchez MD Oct 23, 2017 02:43
--- NOTE | 2017-10-23 03:42 | RADRPT ---
EXAM DATE/TIME: 10/23/2017 03:18 [facility] COMPARISON: CT ABDOMEN & PELVIS W CONTRAST, August 25, 2017, 21:39. INDICATIONS : Low abdomen pain. IV CONTRAST: 96 cc Omnipaque 350 (iohexol) IV ORAL CONTRAST: No oral contrast ingested. RADIATION DOSE: 8.75 CTDIvol (mGy) MEDICAL HISTORY : Cervical Cancer Substance abuse SURGICAL HISTORY : None. ENCOUNTER: Initial ACUITY: 1 day PAIN SCALE: 8/10 LOCATION: low abdomen TECHNIQUE: Volumetric scanning of the abdomen and pelvis was performed. Using automated exposure control and ad justment of the mA and/or kV according to patient size, radiation dose was kept as low as reasonably achievable to obtain optimal diagnostic quality images. DICOM format image data is available electro nically for review and comparison. FINDINGS: LOWER LUNGS: The visualized lower lungs are clear. LIVER: Homogeneous density without lesion. There is no dilation of the biliary tree. No calcified gallston es. SPLEEN: Normal size without lesion. PANCREAS: Within normal limits. KIDNEYS: Normal in size and shape. There is no mass, stone or hydronephrosis. ADRENAL GLANDS: Within normal limits. VASCULAR: There is no aortic aneurysm. BOWEL/MESENTERY: The stomach, small bowel, and colon demonstrate no acute abnormality. There is no free intraperitone al air or fluid. Normal appendix. ABDOMINAL WALL: Within normal limits. RETROPERITONEUM: There is no lymphadenopathy. BLADDER: No wall thickening or mass. REPRODUCTIVE: Right ovarian cyst measures 3.1 cm. INGUINAL: There is no lymphadenopathy or hernia. MUSCULOSKELETAL: Within normal limits for patient age. CONCLUSION: 1. Right ovarian cyst measures 3.1 cm[address] 2. Otherwise unremark[address] CT abdomen/pelvis. Jelani Gerardo MD on October 23, 2017 at 3:36 Board Certified Radiologist. This report was verified electronically.
[2017-10-23] MEDS ORDERED: cefTRIAXone INJ 1,000 MG in SODIUM CHLORIDE 0.9% INJ 100 ML IV ONE (03:45)
[2017-10-23] MEDS ORDERED: ACETAMINOPHEN/HYDROcodone 325 MG/5 MG TAB PO ONE (03:45)
[2017-10-23] MEDS ORDERED: MORPHINE SULFATE 4 MG/ML INJ IV PUSH ONE (04:00)
[2017-10-23 04:11] VITALS: BP 109/55; PULSE 57; RESP 17; O2SAT 97
[2017-10-23 06:35] VITALS: BP 98/50; PULSE 68; RESP 14; O2SAT 96
[2017-10-23] MEDS ORDERED: OXYC1CAP PO (06:43)
[2017-10-23] MEDS ORDERED: CIPR500T2 PO (06:43)
== END 2017-10-23 07:57 | disposition home or self-care (01) ==
LOC: NEPE 23:36
DX: N30.90 Cystitis, unspecified without hematuria (principal); N83.201 Unspecified ovarian cyst, right side; F41.9 Anxiety disorder, unspecified; F17.200 Nicotine dependence, unspecified, uncomplicated; Z79.899 Other long term (current) drug therapy; Z88.6 Allergy status to analgesic agent; Z88.8 Allergy status to other drugs, medicaments and biological substances
CPT/HCPCS: 74177; 80048; 81001; 84702; 84703; 85025; 87086; 96374; 96375; 99284; J0696; J2270; J2405; Q9967

== ENCOUNTER 2017-11-01 02:15 | Emergency (ER) | payer MEDICAID ==
[~2017-11-01] VITALS: Ht 162.6 cm; Wt 82.0 kg
[~2017-11-01 02:15] MED LIST changes: -BACT800T5 PO; +CIPR500T2 PO; +DILA8TAB4 PO; -METR-1 PO
[2017-11-01 02:22] VITALS: BP 150/76; PULSE 84; RESP 16; TEMP 97.4; O2SAT 99
[2017-11-01 02:36] VITALS: BP 124/69; PULSE 71; RESP 20; TEMP 98.1; O2SAT 100
--- NOTE | 2017-11-01 03:04 | PD ---
HPI Chief Complaint: Abdominal Pain Time Seen by Provider: 02:43 Travel History International Travel<30 days: No Contact w/Intl Traveler<30days: No Traveled to known affect area: No History of Present Illness HPI The patient is a 32 year old female who presents to the [facility] emergency department with a history of abdominal pain for the last few months. It has been constant but worse when she had a miscarriage in August. The pain feels sharp "like razor blades". It waxes and wanes in severity. She was diagnosed with cervical cancer in 2016. Dr. Canchola has been doing cryotherapy for her cervical cancer. Her last treatment was 07/2017. She reports that she tried to follow-up with the office today, however she was told that they would not see her because of her recent miscarriage. She also reports that she was seen by [facility] a few days ago for her abdominal pain and had imaging done at that time. A review of her electronic medical record also reveals that she was seen on October 22 at this facility for this abdominal pain with an extensive workup. The patient reports that she has been self-medicating with Dilaudid that she injects as she reports that the pain is been so severe over the last few months. On review of systems, she denies having any fevers, cough, congestion, neck pain, chest pain, shortness of breath, vomiting, diarrhea, urinary symptoms, or neurologic symptoms. Her last bowel movement was yesterday. LMP: 2 weeks ago. PFSH Past Medical History Narrative Medical The patient's past medical history is significant for fibromyalgia, depression, anxiety, cervical cancer, IV drug use. Hx Anticoagulant Therapy: No Asthma: No Autoimmune Disease: No Blood Disorders: No Anxiety: Yes Depression: No Heart Rhythm Problems: No Cancer: Yes (cervical cancer diagnosed in jul 2017) Cardiovascular Problems: No High Cholesterol: No Chemotherapy: No Chest Pain: No Congestive Heart Failure: No COPD: No Cerebrovascular Accident: No Diabetes: No Diminished Hearing: No Endocrine: No Gastrointestinal Disorders: No Genitourinary: No Hypertension: No Immune Disorder: No Implanted Vascular Access Dvce: Yes Musculoskeletal: No Neurologic: No Psychiatric: No Reproductive: No Respiratory: No Immunizations Current: Yes Radiation Therapy: No Sleep Apnea: No Thyroid Disease: No ?: Not LMP: A MONTH AGO : 10 Para: 2 Miscarriage: 8 : 0 Dilation and Curettage (D&C): Yes Past Surgical History Narrative Surgical The patient's past surgical history is significant for d and c, right wrist ORIF , and cryotherapy of her cervix. Abdominal Surgery: No Body Medical Devices: metal pins in right wrist Cardiac Surgery: No Ear Surgery: No Eye Surgery: No Genitourinary Surgery: No Gynecologic Surgery: Yes (D&C 2002, CRYO THERAPY FOR HPV) Hysterectomy: No Neurologic Surgery: No Oral Surgery: No Pacemaker: No Thoracic Surgery: No Other Surgery: Yes (r/ wrist surgery, d&c x 2) Social History Alcohol Use: No (DENIES) Tobacco Use: Yes (1/2 PACK A DAY ) Substance Use: Yes (IV Dilaudid) Allergies-Medications (Allergen,Severity, Reaction): Coded Allergies: butorphanol (Unverified Adverse Reaction, Severe, 11/01/17) ketorolac (Unverified Adverse Reaction, Severe, SOB, 11/01/17) ibuprofen (Unverified Adverse Reaction, Mild, UPSET STOMACH, 11/01/17) Reported Meds & Prescriptions Reported Meds & Active Scripts Active Ciprofloxacin (Ciprofloxacin HCl) 500 Mg Tab 500 Mg PO BID 7 Days Reported Dilaudid (Hydromorphone HCl) 8 Mg Tab 8 Mg PO Q6H PRN Gabapentin 800 Mg Tab 800 Mg PO TID Adderall (Amphetamine-Dextroamphetamine) 30 Mg Tab 30 Mg PO DAILY Avoid late evening doses. Space doses at least 4 to 6 hours if more than once/day dosing. Review of Systems Except as stated in HPI: all other systems reviewed are Neg General / Constitutional: No: Fever Eyes: No: Visual changes HENT: No: Headaches Cardiovascular: No: Chest Pain or Discomfort Respiratory: No: Shortness of Breath Gastrointestinal: Positive: Abdominal Pain Genitourinary: No: Dysuria Musculoskeletal: No: Pain Skin: No Rash Neurologic: No: Weakness Psychiatric: No: Depression Endocrine: No: Polydipsia Hematologic/Lymphatic: No: Easy Bruising Physical Exam Narrative General: The patient is a well-developed well-nourished female in no acute distress. Head and Neck exam: Head is normocephalic atraumatic. Eyes: EOMI, pupils are equal round and reactive to light. Nose: Midline septum with pink mucous membranes Mouth: Dentition unremarkable. Moist mucus membranes. Posterior oropharynx is not erythematous. No tonsillar hypertrophy. Uvula midline. Airway patent. Neck: No palpable lymphadenopathy. No nuchal rigidity. No thyromegaly. Cardiovascular: Regular rate and rhythm without murmurs, gallops, or rubs. Lungs: Clear to auscultation bilaterally. No wheezes, rhonchi, or rales. Abdomen: Soft, with tenderness reported on palpation along the periumbilical area, however when distracted, the patient seems to have no pain with deep palpation in all 4 quadrants of the abdomen. Normal bowel sounds are audible. No guarding, rebound, or rigidity. No tenderness on palpation of McBurney's point. Negative Hernandez sign. Extremities: No clubbing, cyanosis, or edema. 2+ pulses in all 4 extremities. Back: No spinous process tenderness to palpation. No costovertebral angle tenderness to palpation. Neurologic Exam: Grossly nonfocal Skin Exam: No rash noted. Intact skin that is warm and dry. Data Data Last Documented VS Vital Signs Date Time Temp Pulse Resp B/P (MAP) Pulse Ox O2 Delivery O2 Flow Rate FiO2 11/01/17 03:17 62 20 105/71 (82) 100 Room Air 11/01/17 02:36 98.1 Orders Orders Complete Blood Count With Diff (11/01/17 03:03) Comprehensive Metabolic Panel (11/01/17 03:03) C-Reactive Protein (Crp) (11/01/17 03:03) Lipase (11/01/17 03:03) Urinalysis - C+S If Indicated (11/01/17 03:03) Iv Access Insert/Monitor (11/01/17 03:03) Ecg Monitoring (11/01/17 03:03) Oximetry (11/01/17 03:03) Ed Urine Pregnancytest Poc (11/01/17 03:03) Dicyclomine Inj (Bentyl Inj) (11/01/17 03:45) Sodium Chlorid 0.9% 500 Ml Inj (Ns 500 M (11/01/17 03:45) Acetaminophen (Tylenol) (11/01/17 05:15) Labs Laboratory Tests Test 11/01/17 03:15 White Blood Count 7.9 TH/MM3 Red Blood Count 4.01 MIL/MM3 Hemoglobin 12.7 GM/DL Hematocrit 35.6 % Mean Corpuscular Volume 88.9 FL Mean Corpuscular Hemoglobin 31.6 PG Mean Corpuscular Hemoglobin Concent 35.6 % Red Cell Distribution Width 13.1 % Platelet Count 247 TH/MM3 Mean Platelet Volume 7.6 FL Neutrophils (%) (Auto) 45.7 % Lymphocytes (%) (Auto) 40.5 % Monocytes (%) (Auto) 6.4 % Eosinophils (%) (Auto) 6.3 % Basophils (%) (Auto) 1.1 % Neutrophils # (Auto) 3.6 TH/MM3 Lymphocytes # (Auto) 3.2 TH/MM3 Monocytes # (Auto) 0.5 TH/MM3 Eosinophils # (Auto) 0.5 TH/MM3 Basophils # (Auto) 0.1 TH/MM3 CBC Comment DIFF FINAL Differential Comment Blood Urea Nitrogen 8 MG/DL Creatinine 0.51 MG/DL Random Glucose 97 MG/DL Total Protein 6.7 GM/DL Albumin 3.1 GM/DL Calcium Level 8.5 MG/DL Alkaline Phosphatase 70 U/L Aspartate Amino Transf (AST/SGOT) 13 U/L Alanine Aminotransferase (ALT/SGPT) 20 U/L Total Bilirubin LESS THAN 0.1 MG/DL Sodium Level 143 MEQ/L Potassium Level 3.5 MEQ/L Chloride Level 108 MEQ/L Carbon Dioxide Level 28.7 MEQ/L Anion Gap 6 MEQ/L Estimat Glomerular Filtration Rate 141 ML/MIN C-Reactive Protein LESS THAN 0.29 MG/DL Lipase 232 U/L MDM Medical Decision Making Medical Screen Exam Complete: Yes Emergency Medical Condition: Yes Medical Record Reviewed: Yes Differential Diagnosis Pancreatitis, versus gastritis, versus acid reflux, versus biliary colic, versus constipation, versus colonic spasms, versus ovarian cyst, versus drug- seeking behavior Narrative Course During the course of the patient's emergency department visit, the patient's history, examination, and differential diagnosis were reviewed with the patient. The patient was placed on a monitor and storage bin tender with oximetry and frequent blood pressure monitoring. The patient had IV access obtained and blood work sent for analysis. The patient's electronic medical record was reviewed. The patient was last seen at this facility on October 22 and had a workup done for abdominal pain including CT scan of the abdomen and pelvis that showed no acute abnormality. The patient additionally reports recently being at [facility] in a having imaging done. The patient's abdominal examination is benign, therefore the risks outweigh the benefits of additional radiation from CT scan. The patient was initially provided normal saline at 500 mL bolus 1, Bentyl 20 mg IM 1, acetaminophen 650 p.o. 1. The patient's laboratory studies were reviewed and remarkable for a CBC that is essentially within normal limits, CMP is remarkable for chloride of 108, total bilirubin less than 0.1, AST 13, albumin 3.1, lipase 232, C-reactive protein less than 0.29 decreasing likelihood of any type of serious bacterial infection. The patient is encouraged to follow-up with a credit relationship manager for continued treatment of her reported cervical cancer. The patient reports that she is having difficulty also following up with a primary care physician. The patient is given information regarding the [facility] for follow-up. Due to the chronicity of the patient's pain in the abdomen and negative findings on imaging and laboratory studies I did recommend that she follow-up with a stock control supervisor for consideration of additional testing including endoscopy and colonoscopy. She is given the name of the stock control supervisor cushion cover inspector, Dr. Melendez for follow-up. The patient is resting comfortably and feels better, is alert and in no distress. The patient's results and examination findings were discussed with the patient. The repeat examination is unremarkable and benign. The history, exam, diagnostic testing, and current condition do not suggest any significant pathology to warrant further testing, continued ED treatment, admission, or surgical evaluation at this point. The vital signs have been stable. The patient does not have uncontrollable pain, intractable vomiting, or other significant symptoms. The patient's condition is stable and appropriate for discharge. The patient will pursue further outpatient evaluation with a primary care physician or other designated or consulting physician as indicated in the discharge instructions. The patient expressed understanding and was agreeable with this plan. Diagnosis Primary Impression: Abdominal pain Qualified Codes: R10.84 - Generalized abdominal pain Referrals: Yovani Melendez MD call for appointment [facility] 2 days Carbon Furnace Operator call for appointment Patient Instructions: Abdominal Pain (ED), General Instructions Med/Other Pt SpecificInfo: Prescription(s) given Scripts Dicyclomine (Bentyl) 10 Mg Cap 10 MG PO TID Y for Bowel Management, #12 CAP 0 Refills Prov: Cherry Sánchez MD 11/01/17 Disposition: 01 DISCHARGE HOME Condition: Stable Cherry Sánchez MD Nov 01, 2017 03:04
[2017-11-01 03:17] VITALS: BP 105/71; PULSE 62; RESP 20; O2SAT 100
[2017-11-01 03:34] LABS: AUTOMATED NEUTROPHIL # 3.6 TH/MM3 (1.8-7.7); BASOPHIL # 0.1 TH/MM3 (0-0.2); BASOPHIL % 1.1 % (0.0-2.0); EOSINOPHIL # 0.5 TH/MM3 (0-0.4); EOSINOPHIL % 6.3 % (0.0-4.0); HEMATOCRIT 35.6 % (35.0-46.0); HEMOGLOBIN 12.7 GM/DL (11.6-15.3); LYMPH % 40.5 % (9.0-44.0); LYMPHOCYTE # 3.2 TH/MM3 (1.0-4.8); MEAN CELL VOLUME 88.9 FL (80.0-100.0); MEAN CORPUSCULAR HEMOGLOBIN 31.6 PG (27.0-34.0); MEAN CORPUSCULAR HGB CONC 35.6 % (32.0-36.0); MEAN PLATELET VOLUME 7.6 FL (7.0-11.0); MONO % 6.4 % (0.0-8.0); MONOCYTE # 0.5 TH/MM3 (0-0.9); NEUT % 45.7 % (16.0-70.0); PLATELET COUNT 247 TH/MM3 (150-450); RED BLOOD COUNT 4.01 MIL/MM3 (4.00-5.30); RED CELL DISTRIBUTION WIDTH 13.1 % (11.6-17.2); WHITE BLOOD COUNT 7.9 TH/MM3 (4.0-11.0)
[2017-11-01] MEDS ORDERED: SODIUM CHLORID 0.9% 500 ML INJ 500 ML IV ONE (03:45)
[2017-11-01] MEDS ORDERED: DICYCLOMINE HCL 20 MG/2 ML VIAL IM ONE (03:45)
[2017-11-01 03:57] LABS: ALBUMIN 3.1 GM/DL (3.4-5.0); ALT (GPT) 20 U/L (10-53); AST (GOT) 13 U/L (15-37); BICARBONATE 28.7 MEQ/L (21.0-32.0); BLOOD UREA NITROGEN 8 MG/DL (7-18); C-REACTIVE PROTEIN LESS THAN 0.29 MG/DL (0.00-0.30); CALCIUM 8.5 MG/DL (8.5-10.1); CHLORIDE 108 MEQ/L (98-107); CREATININE 0.51 MG/DL (0.50-1.00); GLOMERULAR FILTRATION RATE 141 ML/MIN (>89); GLUCOSE,RANDOM 97 MG/DL (74-106); SODIUM (NA) 143 MEQ/L (136-145)
[2017-11-01 03:59] LABS: ALKALINE PHOSPHATASE 70 U/L (45-117); TOTAL BILIRUBIN ADULT LESS THAN 0.1 MG/DL (0.2-1.0); TOTAL PROTEIN 6.7 GM/DL (6.4-8.2)
[2017-11-01] MEDS ORDERED: ACETAMINOPHEN 325 MG TAB PO ONE (05:15)
[2017-11-01] MEDS ORDERED: DICY10 PO (05:21)
== END 2017-11-01 06:00 | disposition home or self-care (01) ==
LOC: NEPC 02:15
DX: C53.9 Malignant neoplasm of cervix uteri, unspecified (principal); F17.200 Nicotine dependence, unspecified, uncomplicated
CPT/HCPCS: 80053; 83690; 85025; 86140; 96360; 96361; 96372; 99284; J0500; J7040

== ENCOUNTER 2017-11-03 01:02 | Emergency (ER) | payer MEDICAID ==
[~2017-11-03] VITALS: Ht 162.6 cm; Wt 79.0 kg
[~2017-11-03 01:02] MED LIST changes: +DICY10 PO; -OXYC1CAP PO
[2017-11-03 01:09] VITALS: BP 124/58; PULSE 86; RESP 18; TEMP 97.7; O2SAT 98
[2017-11-03 02:17] LABS: BILIRUBIN, URINE NEG (NEG); BLOOD, URINE TRACE (NEG); GLUCOSE,URINE NEG (NEG); KETONE, URINE NEG (NEG); NITRITE,URINE NEG (NEG); URINE COLOR YELLOW (YELLW/STRAW); URINE LEUKOCYTE ESTERASE NEG (NEG)
[2017-11-03] MEDS ORDERED: HYDR-3366 PO (02:19)
[2017-11-03 02:21] LABS: BACTERIA, URINE OCC /hpf; SQUAMOUS EPITHELIAL CELL URINE > 8 /hpf (0-5); WBC, URINE 0-2 /hpf (0-5)
[2017-11-03] MEDS ORDERED: SODIUM CHLOR 0.9% 1000 ML INJ 1,000 ML IV SCH ×2 (04:02→04:15)
--- NOTE | 2017-11-03 04:13 | PD ---
HPI Chief Complaint: Abdominal Pain Time Seen by Provider: 03:59 Travel History International Travel<30 days: No Contact w/Intl Traveler<30days: No Traveled to known affect area: No History of Present Illness HPI The patient is a 32-year-old female who is been a frequent visitor lately to the emergency departments not only at [facility] but other hospitals. Review of her history and a recent CAT scan done on the of last month reveals that she likely has a ruptured ovarian cyst. The CAT scan did show a right ovarian cyst measuring 3.1 cm. The CAT scan was otherwise unremarkable. The patient claims allergies to virtually every nonnarcotic medication including Stadol. She states the only thing that they can give her is morphine. She comes in for morphine shots. She claims her pain is sharp pain like razor blades and a 9/10. PFSH Past Medical History Hx Anticoagulant Therapy: No Asthma: No Autoimmune Disease: No Blood Disorders: No Anxiety: Yes Depression: No Heart Rhythm Problems: No Cancer: Yes (cervical cancer diagnosed in jul 2017) Cardiovascular Problems: No High Cholesterol: No Chemotherapy: No Chest Pain: No Congestive Heart Failure: No COPD: No Cerebrovascular Accident: No Diabetes: No Diminished Hearing: No Endocrine: No Gastrointestinal Disorders: No Genitourinary: No Hypertension: No Immune Disorder: No Implanted Vascular Access Dvce: Yes Musculoskeletal: No Neurologic: No Psychiatric: No Reproductive: Yes (8 miscarriages/ 7 D+C's) Respiratory: No Immunizations Current: Yes Radiation Therapy: No Sleep Apnea: No Thyroid Disease: No ?: Not : 10 Para: 2 Miscarriage: 8 : 0 Dilation and Curettage (D&C): Yes Past Surgical History Abdominal Surgery: No Body Medical Devices: metal pins in right wrist Cardiac Surgery: No Ear Surgery: No Eye Surgery: No Genitourinary Surgery: No Gynecologic Surgery: Yes (D+C x 7) Hysterectomy: No Neurologic Surgery: No Oral Surgery: No Pacemaker: No Thoracic Surgery: No Other Surgery: Yes (r/ wrist surgery, d&c x 2) Social History Alcohol Use: No Tobacco Use: Yes Substance Use: Yes (IV Dilaudid) Allergies-Medications (Allergen,Severity, Reaction): Coded Allergies: butorphanol (Unverified Adverse Reaction, Severe, 11/01/17) ketorolac (Unverified Adverse Reaction, Severe, SOB, 11/01/17) ibuprofen (Unverified Adverse Reaction, Mild, UPSET STOMACH, 11/01/17) Reported Meds & Prescriptions Reported Meds & Active Scripts Active Reported [place] (Hydrocodone-Acetaminophen) 10-325 Mg Tab 1 Tab PO Q6H PRN Dilaudid (Hydromorphone HCl) 8 Mg Tab 8 Mg PO Q6H PRN Gabapentin 800 Mg Tab 800 Mg PO TID Adderall (Amphetamine-Dextroamphetamine) 30 Mg Tab 30 Mg PO DAILY Avoid late evening doses. Space doses at least 4 to 6 hours if more than once/day dosing. Review of Systems Except as stated in HPI: all other systems reviewed are Neg Physical Exam Narrative GENERAL: The patient was sleeping when I encountered her and I had difficulty waking her. She did wake up fully however and she appears to be in minimal distress. Her vital signs are normal. SKIN: Focused skin assessment warm/dry. HEAD: Atraumatic. Normocephalic. EYES: Pupils equal and round. No scleral icterus. No injection or drainage. ENT: No nasal bleeding or discharge. Mucous membranes pink and moist. NECK: Trachea midline. No JVD. CARDIOVASCULAR: Regular rate and rhythm. No murmur appreciated. RESPIRATORY: No accessory muscle use. Clear to auscultation. Breath sounds equal bilaterally. GASTROINTESTINAL: Abdomen soft, with diffuse tenderness in the bilateral lower quadrants and both flanks to direct palpation, nondistended. Hepatic and splenic margins not palpable. No guarding or rebound is present. MUSCULOSKELETAL: No obvious deformities. No clubbing. No cyanosis. No edema. NEUROLOGICAL: Awake and alert. No obvious cranial nerve deficits. Motor grossly within normal limits. Normal speech. PSYCHIATRIC: Appropriate mood and affect; insight and judgment normal. Data Data Last Documented VS Vital Signs Date Time Temp Pulse Resp B/P (MAP) Pulse Ox O2 Delivery O2 Flow Rate FiO2 11/03/17 05:04 11/03/17 04:57 64 16 100 Room Air 11/03/17 01:09 97.7 Orders Orders Complete Blood Count With Diff (11/03/17 01:32) Urinalysis - C+S If Indicated (11/03/17 01:32) Iv Access Insert/Monitor (11/03/17 01:32) Oximetry (11/03/17 01:32) Ed Urine Pregnancytest Poc (11/03/17 01:32) Beta Hcg (Quant/Titer) (11/03/17 04:02) Comprehensive Metabolic Panel (11/03/17 04:02) Lipase (11/03/17 04:02) Ecg Monitoring (11/03/17 04:02) Ondansetron Inj (Zofran Inj) (11/03/17 04:15) Sodium Chlor 0.9% 1000 Ml Inj (Ns 1000 M (11/03/17 04:02) Sodium Chloride 0.9% Flush (Ns Flush) (11/03/17 04:15) Sodium Chlor 0.9% 1000 Ml Inj (Ns 1000 M (11/03/17 04:15) Morphine Inj (Morphine Inj) (11/03/17 04:15) Morphine Inj (Morphine Inj) (11/03/17 05:15) Labs Laboratory Tests Test 11/03/17 02:10 11/03/17 04:20 Urine Color YELLOW Urine Turbidity HAZY Urine pH 6.0 Urine Specific [place] GREATER/EQUAL 1.030 Urine Protein TRACE mg/dL Urine Glucose (UA) NEG mg/dL Urine Ketones NEG mg/dL Urine Occult Blood TRACE Urine Nitrite NEG Urine Bilirubin NEG Urine Urobilinogen 0.2 MG/DL Urine Leukocyte Esterase NEG Urine RBC 3-5 /hpf Urine WBC 0-2 /hpf Urine Squamous Epithelial Cells > 8 /hpf Urine Bacteria OCC /hpf Microscopic Urinalysis Comment CULT NOT INDICATED White Blood Count 10.6 TH/MM3 Red Blood Count 4.27 MIL/MM3 Hemoglobin 12.6 GM/DL Hematocrit 38.0 % Mean Corpuscular Volume 89.0 FL Mean Corpuscular Hemoglobin 29.4 PG Mean Corpuscular Hemoglobin Concent 33.0 % Red Cell Distribution Width 12.6 % Platelet Count 285 TH/MM3 Mean Platelet Volume 7.7 FL Neutrophils (%) (Auto) 46.9 % Lymphocytes (%) (Auto) 41.9 % Monocytes (%) (Auto) 5.5 % Eosinophils (%) (Auto) 4.9 % Basophils (%) (Auto) 0.8 % Neutrophils # (Auto) 5.0 TH/MM3 Lymphocytes # (Auto) 4.4 TH/MM3 Monocytes # (Auto) 0.6 TH/MM3 Eosinophils # (Auto) 0.5 TH/MM3 Basophils # (Auto) 0.1 TH/MM3 CBC Comment DIFF FINAL Differential Comment Blood Urea Nitrogen 9 MG/DL Creatinine 0.39 MG/DL Random Glucose 90 MG/DL Total Protein 6.5 GM/DL Albumin 3.0 GM/DL Calcium Level 8.3 MG/DL Alkaline Phosphatase 69 U/L Aspartate Amino Transf (AST/SGOT) 11 U/L Alanine Aminotransferase (ALT/SGPT) 17 U/L Total Bilirubin 0.1 MG/DL Sodium Level 138 MEQ/L Potassium Level 3.7 MEQ/L Chloride Level 106 MEQ/L Carbon Dioxide Level 26.6 MEQ/L Anion Gap 5 MEQ/L Estimat Glomerular Filtration Rate 192 ML/MIN Lipase 166 U/L Human Chorionic Gonadotropin, Quant LESS THAN 1 MIU/ML MDM Medical Decision Making Medical Screen Exam Complete: Yes Emergency Medical Condition: Yes Medical Record Reviewed: Yes Interpretation(s) The urine shows hazy turbidity with trace occult blood and specific gravity 1.030 and occasional bacteria and is otherwise normal and cultures not indicated. The CBC is normal. The complete metabolic profile shows an albumin 3.0, calcium 8.3 but is otherwise unremarkable. The lipase is normal. The beta -hCG is less than 1. Differential Diagnosis Ruptured ovarian cyst, acute appendicitis-unlikely, urinary tract infection, colitis, electrolyte disorder, mild dehydration, drug-seeking behavior Narrative Course The patient likely has a ruptured ovarian cyst. She also has mild dehydration. The dehydration is suggested by the very high specific gravity of the urine. Diagnosis Primary Impression: Ovarian cyst Additional Instructions: As we discussed, try to get a glass cleaner to follow-up. Take plain Tylenol for pain. Med/Other Pt SpecificInfo: No Change to Meds Disposition: 01 DISCHARGE HOME Condition: Stable David Cody MD Nov 03, 2017 04:13
[2017-11-03] MEDS ORDERED: MORPHINE SULFATE 4 MG/ML INJ IV PUSH ONE ×2 (04:15→05:15)
[2017-11-03] MEDS ORDERED: ONDANSETRON HCL 4 MG/2 ML VIAL IVP ONE (04:15)
[2017-11-03] MEDS ORDERED: SODIUM CHLORIDE 0.9% FLUSH 10 ML FLUSH IV FLUSH PRN (04:15)
[2017-11-03 04:39] LABS: BASOPHIL # 0.1 TH/MM3 (0-0.2); BASOPHIL % 0.8 % (0.0-2.0); EOSINOPHIL # 0.5 TH/MM3 (0-0.4); EOSINOPHIL % 4.9 % (0.0-4.0); HEMOGLOBIN 12.6 GM/DL (11.6-15.3); LYMPH % 41.9 % (9.0-44.0); LYMPHOCYTE # 4.4 TH/MM3 (1.0-4.8); MEAN CORPUSCULAR HEMOGLOBIN 29.4 PG (27.0-34.0); MEAN PLATELET VOLUME 7.7 FL (7.0-11.0); MONO % 5.5 % (0.0-8.0); MONOCYTE # 0.6 TH/MM3 (0-0.9); NEUT % 46.9 % (16.0-70.0); PLATELET COUNT 285 TH/MM3 (150-450); RED BLOOD COUNT 4.27 MIL/MM3 (4.00-5.30); RED CELL DISTRIBUTION WIDTH 12.6 % (11.6-17.2); WHITE BLOOD COUNT 10.6 TH/MM3 (4.0-11.0)
[2017-11-03 04:48] LABS: CHLORIDE 106 MEQ/L (98-107); SODIUM (NA) 138 MEQ/L (136-145)
[2017-11-03 04:51] LABS: BICARBONATE 26.6 MEQ/L (21.0-32.0); BLOOD UREA NITROGEN 9 MG/DL (7-18); CALCIUM 8.3 MG/DL (8.5-10.1); GLUCOSE,RANDOM 90 MG/DL (74-106)
[2017-11-03 04:54] LABS: ALT (GPT) 17 U/L (10-53); AST (GOT) 11 U/L (15-37); CREATININE 0.39 MG/DL (0.50-1.00); GLOMERULAR FILTRATION RATE 192 ML/MIN (>89)
[2017-11-03 04:56] LABS: TOTAL BILIRUBIN ADULT 0.1 MG/DL (0.2-1.0); TOTAL PROTEIN 6.5 GM/DL (6.4-8.2)
[2017-11-03 04:57] VITALS: BP 107/64; PULSE 64; RESP 16; O2SAT 100
[2017-11-03 04:57] LABS: ALKALINE PHOSPHATASE 69 U/L (45-117)
[2017-11-03 06:14] VITALS: BP 107/67
== END 2017-11-03 06:15 | disposition home or self-care (01) ==
LOC: PHED 01:02
DX: N83.201 Unspecified ovarian cyst, right side (principal); F41.9 Anxiety disorder, unspecified; E86.0 Dehydration; Z72.0 Tobacco use; Z79.899 Other long term (current) drug therapy; Z88.8 Allergy status to other drugs, medicaments and biological substances; Z88.6 Allergy status to analgesic agent
CPT/HCPCS: 80053; 81001; 83690; 84702; 84703; 85025; 96361; 96374; 96375; 96376; 99284; J2270; J2405; J7030

== ENCOUNTER 2017-11-11 15:58 | Emergency (ER) | payer MEDICAID ==
[~2017-11-11] VITALS: Ht 162.6 cm; Wt 78.7 kg
[~2017-11-11 15:58] MED LIST changes: -CIPR500T2 PO; -DICY10 PO; +HYDR-3366 PO
[2017-11-11 16:05] VITALS: BP 123/74; PULSE 83; RESP 20; TEMP 98.7; O2SAT 99
--- NOTE | 2017-11-11 16:28 | PD ---
HPI Chief Complaint: Flank/Kidney Pain Time Seen by Provider: 16:18 Travel History International Travel<30 days: No Contact w/Intl Traveler<30days: No Traveled to known affect area: No History of Present Illness HPI The patient was seen and examined in the presence of the nurse. This patient complains of some greenish drainage from her left upper gum. She says 6 weeks ago she had her teeth pulled. She says the place that that her dental work will not see her because of insurance issues. She denies fever. She has some discomfort in her left upper jaw. Symptom severity is moderate. Patient has history of chronic pain. She used to take Dilaudid and [place] but says she is not on those anymore. Complaining of some right-sided flank pain also, no injury or fever. PFSH Past Medical History Hx Anticoagulant Therapy: No Asthma: No Autoimmune Disease: No Blood Disorders: No Anxiety: Yes Depression: No Heart Rhythm Problems: No Cancer: Yes (cervical cancer diagnosed in jul 2017) Cardiovascular Problems: No High Cholesterol: No Chemotherapy: No Chest Pain: No Congestive Heart Failure: No COPD: No Cerebrovascular Accident: No Diabetes: No Diminished Hearing: No Endocrine: No Gastrointestinal Disorders: No Genitourinary: No Hypertension: No Immune Disorder: No Implanted Vascular Access Dvce: Yes Musculoskeletal: No Neurologic: No Psychiatric: No Reproductive: Yes (8 miscarriages/ 7 D+C's) Respiratory: No Immunizations Current: Yes Radiation Therapy: No Sleep Apnea: No Thyroid Disease: No Tetanus Vaccination: Unknown ?: Not LMP: october 2017 : 10 Para: 2 Miscarriage: 8 : 0 Dilation and Curettage (D&C): Yes Past Surgical History Abdominal Surgery: No Body Medical Devices: metal pins in right wrist Cardiac Surgery: No Ear Surgery: No Eye Surgery: No Genitourinary Surgery: No Gynecologic Surgery: Yes (D+C x 7) Hysterectomy: No Neurologic Surgery: No Oral Surgery: No Pacemaker: No Thoracic Surgery: No Other Surgery: Yes (r/ wrist surgery, d&c x 2) Social History Alcohol Use: No Tobacco Use: Yes Substance Use: Yes (IV Dilaudid) Allergies-Medications (Allergen,Severity, Reaction): Coded Allergies: butorphanol (Unverified Adverse Reaction, Severe, 11/11/17) ketorolac (Unverified Adverse Reaction, Severe, SOB, 11/11/17) ibuprofen (Unverified Adverse Reaction, Mild, UPSET STOMACH, 11/11/17) Reported Meds & Prescriptions Reported Meds & Active Scripts Active Clindamycin (Clindamycin HCl) 150 Mg Cap 300 Mg PO Q8HR Reported Gabapentin 800 Mg Tab 800 Mg PO TID Adderall (Amphetamine-Dextroamphetamine) 30 Mg Tab 30 Mg PO DAILY Avoid late evening doses. Space doses at least 4 to 6 hours if more than once/day dosing. Review of Systems General / Constitutional: No: Fever Eyes: No: Visual changes HENT: Positive: Dental Difficulties, No: Headaches Cardiovascular: No: Chest Pain or Discomfort Respiratory: No: Shortness of Breath Gastrointestinal: No: Abdominal Pain Genitourinary: Positive: Flank Pain, No: Dysuria Musculoskeletal: Positive: Pain Skin: No Rash Neurologic: No: Weakness Psychiatric: No: Depression Endocrine: No: Polydipsia Hematologic/Lymphatic: No: Easy Bruising Physical Exam Narrative GENERAL: Well-nourished, well-developed patient. SKIN: Focused skin assessment warm/dry. HEAD: Normocephalic. Oral cavity exam reveals that her teeth are missing. She does have a hole in the right upper gingiva. However there is no surrounding erythema or fluctuance. No active drainage. EYES: No scleral icterus. No injection or drainage. NECK: Supple, trachea midline. No JVD or lymphadenopathy. CARDIOVASCULAR: Regular rate and rhythm without murmurs, gallops, or rubs. RESPIRATORY: Breath sounds equal bilaterally. No accessory muscle use. GASTROINTESTINAL: Abdomen soft, non-tender, nondistended. MUSCULOSKELETAL: No cyanosis, or edema. No bruising or rash or swelling. Just lightly touching her skin of her back and she has exaggerated hypersensitivity and pulls away and moans. BACK: Nontender without obvious deformity. No CVA tenderness. Data Data Last Documented VS Vital Signs Date Time Temp Pulse Resp B/P (MAP) Pulse Ox O2 Delivery O2 Flow Rate FiO2 11/11/17 17:32 72 16 99 11/11/17 16:05 98.7 123/74 (90) Orders Orders Urinalysis - C+S If Indicated (11/11/17 16:11) Ed Urine Pregnancytest Poc (11/11/17 16:11) Labs Laboratory Tests Test 11/11/17 16:15 Urine Collection Type VOIDED Urine Color YELLOW Urine Turbidity SL CLOUDY Urine pH 6.0 Urine Specific [place] 1.020 Urine Protein NEG mg/dL Urine Glucose (UA) NEG mg/dL Urine Ketones NEG mg/dL Urine Occult Blood NEG Urine Nitrite NEG Urine Bilirubin NEG Urine Urobilinogen 0.2 MG/DL Urine Leukocyte Esterase SMALL Urine WBC 0-2 /hpf Urine Squamous Epithelial Cells 0-2 /hpf Microscopic Urinalysis Comment CULT NOT INDICATED MDM Medical Decision Making Medical Screen Exam Complete: Yes Emergency Medical Condition: Yes Medical Record Reviewed: Yes Differential Diagnosis Gingival infection, abscess, gingivitis Narrative Course I have reviewed the patient's electronic medical record. Patient is a frequent visitor to the ER. This is her ninth visit this year Going to prescribe her some clindamycin for her gingival situation We will try to find a handout to assist with dental follow-up Urine is negative Urinalysis is clean On recheck she is sound asleep. Recommend dental follow-up and primary care follow-up Diagnosis Primary Impression: Dental infection Additional Impression: Acute right flank pain Additional Instructions: The patient was advised to follow up with their physician and return if they worsen. Follow-up with dentist Med/Other Pt SpecificInfo: Prescription(s) given Scripts Clindamycin (Clindamycin) 150 Mg Cap 300 MG PO Q8HR for Infection, #42 CAP 0 Refills Prov: Chato Cedeno MD 11/11/17 Disposition: 01 DISCHARGE HOME Condition: Stable Chato Cedeno MD Nov 11, 2017 16:28
[2017-11-11 16:49] LABS: BILIRUBIN, URINE NEG (NEG); BLOOD, URINE NEG (NEG); GLUCOSE,URINE NEG (NEG); KETONE, URINE NEG (NEG); NITRITE,URINE NEG (NEG); URINE COLOR YELLOW (YELLW/STRAW); URINE LEUKOCYTE ESTERASE SMALL (NEG)
[2017-11-11 17:25] LABS: SQUAMOUS EPITHELIAL CELL URINE 0-2 /hpf (0-5); WBC, URINE 0-2 /hpf (0-5)
[2017-11-11] MEDS ORDERED: CLIN150C14 PO (17:34)
== END 2017-11-11 17:46 | disposition home or self-care (01) ==
LOC: PHED 15:58
DX: K04.7 Periapical abscess without sinus (principal); G89.29 Other chronic pain; F41.9 Anxiety disorder, unspecified; Z72.0 Tobacco use; Z88.6 Allergy status to analgesic agent
CPT/HCPCS: 81001; 84703; 99283

== ENCOUNTER 2018-01-02 23:41 | Emergency (ER) | payer MEDICAID ==
[~2018-01-02 23:41] MED LIST changes: +CLIN150C14 PO; -DILA8TAB4 PO; -HYDR-3366 PO
[2018-01-03 00:13] VITALS: BP 130/86; PULSE 93; RESP 18; TEMP 98.7; O2SAT 98
--- NOTE | 2018-01-03 00:41 | PD ---
HPI Chief Complaint: Abdominal Pain Time Seen by Provider: 00:40 Travel History International Travel<30 days: No Contact w/Intl Traveler<30days: No Traveled to known affect area: No History of Present Illness HPI 32-year-old female presents for evaluation of vaginal discharge. Symptoms started 4-5 days ago. She reports white vaginal discharge with foul-smelling odor. She reports that she did have some vaginal bleeding 4-5 days ago but that resolved. She reports some pain in the right lower pubic region which is sharp and worse palpation. History of ovarian cysts, this feels similar. She has been seen here numerous times in the past with similar pain. She reports that she is only sexually active with her . Last menstrual period was 2- 3 weeks ago. 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 Denies dysuria, flank pain, fevers or chills. No other complaints. PFSH Past Medical History Hx Anticoagulant Therapy: No Asthma: No Autoimmune Disease: No Blood Disorders: No Anxiety: Yes Depression: No Heart Rhythm Problems: No Cancer: Yes (cervical cancer diagnosed in jul 2017) Cardiovascular Problems: No High Cholesterol: No Chemotherapy: No Chest Pain: No Congestive Heart Failure: No COPD: No Cerebrovascular Accident: No Diabetes: No Diminished Hearing: No Endocrine: No Gastrointestinal Disorders: No Genitourinary: No Hypertension: No Immune Disorder: No Implanted Vascular Access Dvce: Yes Musculoskeletal: No Neurologic: No Psychiatric: No Reproductive: Yes (8 miscarriages/ 7 D+C's) Respiratory: No Immunizations Current: Yes Radiation Therapy: No Sleep Apnea: No Thyroid Disease: No : 10 Para: 2 Miscarriage: 8 : 0 Dilation and Curettage (D&C): Yes Past Surgical History Abdominal Surgery: No Body Medical Devices: metal pins in right wrist Cardiac Surgery: No Ear Surgery: No Eye Surgery: No Genitourinary Surgery: No Gynecologic Surgery: Yes (D+C x 7) Hysterectomy: No Neurologic Surgery: No Oral Surgery: No Pacemaker: No Thoracic Surgery: No Other Surgery: Yes (r/ wrist surgery, d&c x 2) Social History Alcohol Use: No Tobacco Use: Yes Substance Use: Yes (IV Dilaudid) Allergies-Medications (Allergen,Severity, Reaction): Coded Allergies: butorphanol (Unverified Adverse Reaction, Severe, 01/03/18) ketorolac (Unverified Adverse Reaction, Severe, SOB, 01/03/18) ibuprofen (Unverified Adverse Reaction, Mild, UPSET STOMACH, 01/03/18) Reported Meds & Prescriptions Reported Meds & Active Scripts Active Flagyl (Metronidazole) 500 Mg Tab 500 Mg PO BID 7 Days Clindamycin (Clindamycin HCl) 150 Mg Cap 300 Mg PO Q8HR Reported Gabapentin 800 Mg Tab 800 Mg PO TID Adderall (Amphetamine-Dextroamphetamine) 30 Mg Tab 30 Mg PO DAILY Avoid late evening doses. Space doses at least 4 to 6 hours if more than once/day dosing. Review of Systems Except as stated in HPI: all other systems reviewed are Neg Physical Exam Narrative GENERAL: Well-developed well-nourished female no acute distress SKIN: Warm and dry. HEAD: Atraumatic. Normocephalic. EYES: Pupils equal and round. No scleral icterus. No injection or drainage. ENT: No nasal bleeding or discharge. Mucous membranes pink and moist. NECK: Trachea midline. No JVD. CARDIOVASCULAR: Regular rate and rhythm. No murmur appreciated. RESPIRATORY: No accessory muscle use. Clear to auscultation. Breath sounds equal bilaterally. GASTROINTESTINAL: Abdomen soft, non-tender, nondistended. Hepatic and splenic margins not palpable. Pelvic examination in the presence of a female nurse: Genital warts noted. There is no unusual vaginal discharge. There is no cervical motion tenderness. There is mild right adnexal tenderness. Data Data Last Documented VS Vital Signs Date Time Temp Pulse Resp B/P (MAP) Pulse Ox O2 Delivery O2 Flow Rate FiO2 01/03/18 00:13 98.7 93 18 130/86 (101) 98 Orders Orders Gc And Chlamydia Pcr (01/03/18 00:35) Wet Prep Profile (01/03/18 00:35) Urinalysis - C+S If Indicated (01/03/18 00:35) Ed Urine Pregnancytest Poc (01/03/18 00:35) Tramadol (Ultram) (01/03/18 01:15) Acetaminophen (Tylenol) (01/03/18 01:15) Acetamin-Codeine 300-30 Mg (Tylenol-Code (01/03/18 01:15) Metronidazole (Flagyl) (01/03/18 02:15) Azithromycin Powd Pack (Zithromax Powd P (01/03/18 02:15) Ceftriaxone Inj (Rocephin Inj) (01/03/18 02:15) Lidocaine 1% Inj (50 Ml) (Xylocaine 1% I (01/03/18 02:15) Fluconazole (Diflucan) (01/03/18 02:15) Ed Discharge Order (01/03/18 02:09) Labs Laboratory Tests Test 01/03/18 01:10 Urine Color YELLOW Urine Turbidity HAZY Urine pH 5.5 Urine Specific [place] 1.035 Urine Protein 30 mg/dL Urine Glucose (UA) NEG mg/dL Urine Ketones NEG mg/dL Urine Occult Blood NEG Urine Nitrite NEG Urine Bilirubin NEG Urine Urobilinogen 2.0 MG/DL Urine Leukocyte Esterase NEG Urine RBC 4 /hpf Urine WBC 3 /hpf Urine Squamous Epithelial Cells 16 /hpf Urine Transitional Epithelial Cells <1 /hpf Urine Calcium Oxalate Crystals RARE /hpf Urine Amorphous Sediment RARE Urine Bacteria RARE /hpf Urine Hyaline Casts 6 /lpf Urine Mucus MANY /lpf Urine Yeast (Budding) RARE Microscopic Urinalysis Comment CULT NOT INDICATED Clue Cells (Wet Prep) PRESENT Vaginal Trichomonas (Wet Prep) NONE SEEN Vaginal Yeast (Wet Prep) NONE SEEN MDM Medical Decision Making Medical Screen Exam Complete: Yes Emergency Medical Condition: Yes Medical Record Reviewed: Yes Differential Diagnosis Ovarian cyst, ovarian torsion, appendicitis, pelvic inflammatory disease, cervicitis, vaginosis Narrative Course Pelvic examination was performed and a wet prep, chlamydia gonorrhea probe were sent. Urinalysis was sent. Urine test was performed and is negative. The patient reports that she is allergic to most nonnarcotic medication and is also allergic to tramadol. Specifically she is requesting Percocet or morphine for pain control. Per chart review she has had similar requests in the past. She will be given 2 tablets of Tylenol with Codeine here. Wet prep is positive for clue cells. Urinalysis reveals budding yeast as well. The patient will be given Rocephin and azithromycin pending GC results. She will be started on Flagyl and she will be given a dose of Diflucan here. Urine test is negative. She is stable for discharge. Diagnosis Primary Impression: Bacterial vaginosis Additional Impression: Vaginitis Additional Instructions: Medication as prescribed. Follow-up with primary care physician as needed. Return for any emergent medical conditions. Med/Other Pt SpecificInfo: Prescription(s) given Scripts Metronidazole (Flagyl) 500 Mg Tab 500 MG PO BID for Infection for 7 Days, #14 TAB 0 Refills Prov: Anibal Kilpatrick MD 01/03/18 Disposition: 01 DISCHARGE HOME Condition: Stable Giovany Mckeon Jan 03, 2018 00:41
[2018-01-03] MEDS ORDERED: traMADol HCL 50 MG TAB PO ONE (01:15)
[2018-01-03] MEDS ORDERED: ACETAMINOPHEN/CODEINE 300 MG/30 MG TAB PO ONE (01:15)
[2018-01-03] MEDS ORDERED: ACETAMINOPHEN 325 MG TAB PO ONE (01:15)
[2018-01-03 01:40] LABS: AMORPHOUS SEDIMENT, URINE RARE; BACTERIA, URINE RARE /hpf; BILIRUBIN, URINE NEG (NEG); BLOOD, URINE NEG (NEG); CALCIUM OXALATE CRYSTALS,URINE RARE /hpf; GLUCOSE,URINE NEG (NEG); HYALINE CAST, URINE 6 /lpf (RARE); KETONE, URINE NEG (NEG); MUCUS URINE MANY /lpf (OCC); NITRITE,URINE NEG (NEG); PH, URINE 5.5 (5.0-8.5); SQUAMOUS EPITHELIAL CELL URINE 16 /hpf (0-5); TRANSITIONAL EPI CELLS, URINE <1 /hpf; URINE COLOR YELLOW (YELLW/STRAW); URINE LEUKOCYTE ESTERASE NEG (NEG)
[2018-01-03] MEDS ORDERED: METR-1 PO (02:13)
[2018-01-03] MEDS ORDERED: AZITHROMYCIN PWD FOR SUSP 1 GM PACKET PO ONE (02:15)
[2018-01-03] MEDS ORDERED: metroNIDAZOLE 500 MG TAB PO ONE (02:15)
[2018-01-03] MEDS ORDERED: cefTRIAXone 250 MG VIAL IM ONE (02:15)
[2018-01-03] MEDS ORDERED: FLUCONAZOLE 100 MG TAB PO ONE (02:15)
[2018-01-03] MEDS ORDERED: LIDOCAINE HCL 1% 50 ML VIAL IM ONE (02:15)
== END 2018-01-03 03:04 | disposition home or self-care (01) ==
LOC: NEPD 23:41
DX: N76.0 Acute vaginitis (principal); A63.0 Anogenital (venereal) warts; F41.9 Anxiety disorder, unspecified; F11.90 Opioid use, unspecified, uncomplicated; Z72.0 Tobacco use; Z85.41 Personal history of malignant neoplasm of cervix uteri
CPT/HCPCS: 81001; 84703; 87210; 87491; 87591; 96372; 99284; J0696